=== PATIENT | female | born 1995 | race Caucasian/White ===

== ENCOUNTER 2023-11-30 04:53 | Emergency (ER) | payer BC, SELFPAY ==
[2023-11-30] VITALS (17 sets, daily range): BP systolic 91–115; BP diastolic 56–92; PULSE 107–110; RESP 18–20; O2SAT 85–99; BMI 31.8
[2023-11-30] MEDS: METHYLPREDNISOLONE SOD SUCC PF 125 MG/2 ML VIAL IVP (05:05)
[2023-11-30] MEDS: DIPHENHYDRAMINE HCL 50 MG/ML (1ML) VIAL IV (05:05)
--- NOTE | 2023-11-30 05:08 | ED_ITS ---
HPI - Allergic Reaction General Chief complaint: Allergic Reaction Stated complaint: allergic reaction Time Seen by Provider: 11/30/23 05:05 Source: patient Mode of arrival: walk-in Limitations: no limitations History of Present Illness HPI narrative: 28-year-old female presents for an allergic reaction. She has swelling to her lips and redness to her skin. It started shortly before coming into the emergency department. No new medications and she hasn't used any new products. It has been continuous. Related Data Home Medications Medication Instructions Recorded Confirmed citalopram 20 mg tablet mg 11/30/23 diclofenac sodium 75 mg mg PO 11/30/23 tablet,delayed release levonorgestrel 0.15 mg-ethinyl 11/30/23 estradiol 30 mcg tablets,3 mos pack(91) simvastatin 20 mg tablet mg 11/30/23 tizanidine 4 mg tablet mg 11/30/23 venlafaxine 37.5 mg mg PO 11/30/23 capsule,extended release 24 hr Allergies Allergy/AdvReac Type Severity Reaction Status Date / Time No Known Drug Allergies Allergy Verified 11/30/23 05:01 Review of Systems ROS Narrative A ten point review of systems is negative except as noted above. PFSH PFSH Social History Smoking status: Never smoker Exam Narrative Exam Narrative: Nurses note and vital signs reviewed and patient is not hypoxic. General: The patient appears well and in no apparent distress. Patient is re sting comfortably on cart. Skin: Warm, dry, no pallor noted. There is erythema on most areas of her body. Head: Normocephalic, atraumatic Eye: Normal conjunctiva, no drainage Ears, Nose, Mouth, and Throat: oral mucosa is moist. Nares patent. lips are swollen, tongue is not. She is handling her oral secretions well Cardiovascular: Regular Rate and Rhythm Respiratory: bilateral rhonchi present Back: non-tender GI: soft and nontender Musculoskeletal: The patient has no evidence of calf tenderness, no pitting edema, symmetrical pulses noted bilaterally Neurological: A&O, normal speech Psychiatric: Cooperative Constitutional Vital Signs, click to edit/add: Last Vital Signs Pulse 109 H 11/30/23 04:56 Resp 20 11/30/23 04:56 BP 91/69 11/30/23 04:56 Pulse Ox 85 L 11/30/23 04:56 O2 Del Method Room Air 11/30/23 04:56 Course Vital Signs Vital signs: Vital Signs Pulse Rate 109 H 11/30/23 04:56 Respiratory Rate 20 11/30/23 04:56 Blood Pressure 91/69 11/30/23 04:56 Pulse Oximetry 85 L 11/30/23 04:56 Oxygen Delivery Method Room Air 11/30/23 04:56 Pulse Rate 109 H 11/30/23 04:56 Respiratory Rate 20 11/30/23 04:56 Blood Pressure 91/69 11/30/23 04:56 Pulse Oximetry 85 L 11/30/23 04:56 Oxygen Delivery Method Room Air 11/30/23 04:56 MDM - Allergic Reaction MDM Narrative Medical decision making narrative: the patient's was given IV Pepcid, Solu-Medrol, Benadryl, and aerosol treatment and seems to be improved. Subsequently she became nauseous and was given IV Zofran and the patient is signed out to Dr. Liu. Differential Diagnosis Differential diagnosis: Likely anaphylaxis, allergic reaction, angioedema, adverse reaction to drug and urticaria Discharge Plan Discharge Chief Complaint: Allergic Reaction Clinical Impression: Allergic reaction Patient Disposition: Still a Patient Prescriptions / Home Meds: No Action venlafaxine 37.5 mg capsule,extended release 24hr PO tizanidine 4 mg tablet citalopram 20 mg tablet simvastatin 20 mg tablet diclofenac sodium 75 mg tablet,delayed release (DR/EC) PO levonorgestrel-ethinyl estrad 0.15 mg-30 mcg (91) tablets,dose pack,3 month Referrals: Edgardo Parrish MD [Primary Care Provider] - 1 week
[2023-11-30] MEDS: ALBUTEROL SULFATE 2.5 MG/3 ML VIAL NEB IH (05:16)
[2023-11-30] MEDS: FAMOTIDINE/PF 20 MG/2 ML VIAL IV (05:17)
--- NOTE | 2023-12-25 15:51 | ED.ALLEREA1 ---
HPI - Allergic Reaction General Chief complaint: Allergic Reaction Stated complaint: allergic reaction Time Seen by Provider: 11/30/23 05:05 Source: patient Mode of arrival: walk-in Limitations: no limitations History of Present Illness HPI narrative: This patient was turned over to me by Dr. serrano she was under close observation and was evaluated by myself several times. After initial evaluation. Therapeutic intervention was initiated. She did much better but under observation for several hours here. Related Data Home Medications Medication Instructions Recorded Confirmed citalopram 20 mg tablet mg 11/30/23 diclofenac sodium 75 mg mg PO 11/30/23 tablet,delayed release levonorgestrel 0.15 mg-ethinyl 11/30/23 estradiol 30 mcg tablets,3 mos pack(91) simvastatin 20 mg tablet mg 11/30/23 tizanidine 4 mg tablet mg 11/30/23 venlafaxine 37.5 mg mg PO 11/30/23 capsule,extended release 24 hr Allergies Allergy/AdvReac Type Severity Reaction Status Date / Time No Known Drug Allergies Allergy Verified 11/30/23 05:01 PFSH PFS Social History Smoking status: Never smoker Exam Constitutional Vital Signs, click to edit/add: Last Vital Signs Pulse 107 H 11/30/23 05:25 Resp 18 11/30/23 07:15 BP 113/56 11/30/23 07:15 Pulse Ox 95 11/30/23 07:15 O2 Del Method Room Air 11/30/23 07:15 O2 Flow Rate 5 11/30/23 05:25 Course Vital Signs Vital signs: Vital Signs Pulse Rate 109 H 11/30/23 04:56 Respiratory Rate 20 11/30/23 04:56 Blood Pressure 91/69 11/30/23 04:56 Pulse Oximetry 85 L 11/30/23 04:56 Oxygen Delivery Method Room Air 11/30/23 04:56 Pulse Rate 107 H 11/30/23 05:25 Respiratory Rate 18 11/30/23 07:15 Blood Pressure 113/56 11/30/23 07:15 Pulse Oximetry 95 11/30/23 07:15 Oxygen Delivery Method Room Air 11/30/23 07:15 Oxygen Delivery Flow Rate 5 11/30/23 05:25 MDM - Allergic Reaction MDM Narrative Medical decision making narrative: There is no identifiable allergen that precipitated this event per Dr. messina chart or my discussion. She responded very nicely so we decided to treat her as an outpatient after adequate observation. Discharge Plan Discharge Chief Complaint: Allergic Reaction Clinical Impression: Allergic reaction Patient Disposition: Home, Self-Care Time of Disposition Decision: 07:12 Prescriptions / Home Meds: No Action venlafaxine 37.5 mg capsule,extended release 24hr PO tizanidine 4 mg tablet citalopram 20 mg tablet simvastatin 20 mg tablet diclofenac sodium 75 mg tablet,delayed release (DR/EC) PO levonorgestrel-ethinyl estrad 0.15 mg-30 mcg (91) tablets,dose pack,3 month Instructions: General Allergic Reaction (ED), Allergy Testing (ED) Additional Instructions: prednisone for five days/entero-for 3-5 days/Pepcid for five days Stand Alone Forms: Portal Instructions Referrals: Edgardo Parrish MD [Primary Care Provider] - 1 week Discharge Date/Time: 11/30/23 07:20
== END 2023-11-30 07:20 | disposition home or self-care (01) ==
PROVIDERS: Emergency Provider Emergency Medicine Emergency Medical Services; PCP Family Medicine
DX: T78.40XA Allergy, unspecified, initial encounter (principal); Z79.899 Other long term (current) drug therapy
CPT/HCPCS: 94640; 96374; 96375; 99284; J1200; J2930

== ENCOUNTER 2024-01-05 08:57 | Outpatient (OUT) | payer BC, SELFPAY ==
--- OUTSIDE RECORDS SUMMARY | 2024-01-05 09:10 | XMS_ITS | CCD ---
Author Name Unknown Address [address] [facility] [address] [place] [address] Organization [facility] Care Team Providers Care Head Soft Sugar Operator Name Role Phone Jasmin Parrish Primary Care Provider [phone] Kaushik Richardson Attending Provider [phone] aJsmin Parrish Primary Care Physician Benjamin RAMESH Attending Unavailable DESTIN ., DR BEARD Admitting Unavailable REQUEST, DR POPEYE LISTED Primary Care Unavaila ble DESTIN ., DR BEARD Consulting Unavailable DESTIN ., DR BEARD Attending Unavailable ZIEBER, DR GABRIELLA Velazco Consulting Unavailable DESTIN ., DR BEARD Consulting Unavailable DESTIN ., DR BEARD Attending Unavailable DESTIN ., DR BEARD Admitting Unavailable HOY ., DR CASTELLANOS Primary Care Unavailable HOY ., DR CASTELLANOS Consulting Unavailable HOY ., DR CASTELLANOS Attending Unavailable HOY ., DR CASTELLANOS Admitting Unavailable HOY ., DR CASTELLANOS Primary Care Unavailable REINECK, DR DEVON Reid Attending Unavailabl e REINECK, DR DEVON Reid Admitting Unavailabl e REINECK, DR DEVON Reid Consulting Unavailabl e HOY ., DR CASTELLANOS Primary Care Unavailable NESTOR GONZALEZ Consulting Unavailable HOY ., DR CASTELLANOS Primary Care Unavailable HOY ., DR CASTELLANOS Consulting Unavailable HOY ., DR CASTELLANOS Attending Unavailable HOY ., DR CASTELLANOS Admitting Unavailable HOY ., DR CASTELLANOS Primary Care Unavailable HOY ., DR CASTELLANOS Consulting Unavailable HOY ., DR CASTELLANOS Attending Unavailable HOY ., DR CASTELLANOS Admitting Unavailable ZIEBER, DR GABRIELLA Velazco Consulting Unavailable Jasmin Parirsh Referring Unavailable NILL, Benjamin R Attending Unavailable NILL, Benjamin R Attending Unavailable NILL, Benjamin R Attending Unavailable NILL, Benjamin R Attending Unavailable HoyJasmin Referring Unavailable NILL, Benjamin R Attending Unavailable NILL, Benjamin R Admitting Unavailable NILL, Benjamin R Attending Unavailable DESTIN, CHIRAG Attending Unavailable Unavailable Unavailable Unavailable Medications Current Medications Medication Drug Class(es) Dates Sig (Normalized) Sig (Original) citalopram 20 mg oral tablet (4 sources) Serotonin Reuptake Inhibitor Start: 10-24-2022 take 1 tablet by mouth once daily CeleXA 20 mg Tab 20 mg = 1 tab(s), Oral, Daily, Refills(s) 0 Start Date: 10/24/22 Status: Ordered diclofenac sodium 75 mg delayed release oral tablet (4 sources) Nonsteroidal Anti-inflammatory Drug Start: 10-24-2022 take 1 tablet by mouth twice daily diclofenac sodium 75 mg Oral EC Tab 75 mg = 1 tab(s), Oral, BID, Refills(s) 0 Start Date: 10/24/22 Status: Ordered ethinyl estradiol 0.02 mg / ferrous fumarate 75 mg / norethindrone 1 mg oral tablet (4 sources) Estrogen Start: 10-24-2022 take 1 tablet by mouth once daily 12/12 oral tablet 1 tab(s), Oral, Daily, Refill(s) 0 Start Date: 10/24/22 Status: Ordered famotidine 40 mg oral tablet (1 source) Histamine-2 Receptor Antagonist Start: 08-18-2023 take 1 tablet by mouth once daily at bedtime Pepcid 40 mg Tab 40 mg = 1 tab(s), Oral, Once a day (at bedtime), Refills(s) 0 Start Date: 08/18/23 Status: Ordered simvastatin 20 mg oral tablet (1 source) HMG-CoA Reductase Inhibitor Start: 09-10-2023 take 1 tablet by mouth once daily in the evening simvastatin 20 mg Tab 20 mg = 1 tab(s), Oral, qPM, Refills(s) 0 Start Date: 09/10/23 Status: Ordered sucralfate 1000 mg oral tablet (2 sources) Aluminum Complex Start: 08-27-2023 take 1 tablet by mouth four times daily Carafate 1 gram Tab 1 gm = 1 tab(s), Oral, QID, # 120 tab(s), Refills(s) 3, Pharmacy: [facility]/pharmacy #[id number], 157.4, cm, 09/10/23 12:54:00 EDT, Height/Length Dosing, 76.6, kg, 09/10/23 12:54:00 EDT, Weight Dosing Start Date: 09/10/23 Status: Ordered tiZANidine 4 mg oral tablet (3 sources) Central alpha-2 Adrenergic Agonist Start: 10-24-2022 take 2 tablets by mouth at bedtime tiZANidine 4 mg Tab 8 mg = 2 tab(s), Oral, Bedtime, Refills(s) 0 Start Date: 10/24/22 Status: Ordered 24 hr venlafaxine 37.5 mg extended release oral capsule (4 sources) Serotonin and Norepinephrine Reuptake Inhibitor Start: 10-24-2022 take 1 capsule by mouth once daily venlafaxine 37.5 mg Cap-ER 37.5 mg = 1 cap(s), Oral, Daily, Refills(s) 0 Start Date: 10/24/22 Status: Ordered Ventolin HFA 90 mcg/inh Aerosol-Adpt (4 sources) Start: 10-24-2022 take 2 puff(s) by inhalation four times daily Ventolin HFA 90 mcg/inh Aerosol-Adpt 2 puff(s), Inhalation, QID Shortness of breath or wheezing, Refill(s) 0 Start Date: 10/24/22 Status: Ordered Problems Active Problems Problem Classification Problem Date Documented Da te Episodic/Chronic Abdominal pain (2 sources) Epigastric pain; Translations: [Epigastric pain] Onset: 3 Episodic Asthma (6 sources) Unspecified asthma, uncomplicated; Translations: [Asthma] Onset: 3 Chronic Attention-deficit, conduct, and disruptive behavior disorders (4 sources) Attention deficit hyperactivity disorder 10-24-2022 Chronic Disorders of lipid metabolism (6 sources) Pure hypercholesterolemia, unspecified; Translations: [Pure hyperglyceridemia] Onset: 3 Chronic Esophageal disorders (6 sources) Gastroesophageal reflux disease; Translations: [Gastroesophageal reflux disease without esophagitis] Onset: 3 10-24-2022 Chronic Fluid and electrolyte disorders (1 source) Dehydration; Translations: [DEHYDRATION] Onset: 3 Episodic Genitourinary symptoms and ill-defined conditions (13 sources) Dysuria; Translations: [Increased frequency of urination] Onset: 3 07-19-2019 Episodic Menstrual disorders (4 sources) Irregular menstruation, unspecified; Translations: [IRREGULAR MENSTRUATION UNSPECIFIED] Onset: 2 Chronic Mood disorders (4 sources) Depressive disorder 07-19-2019 Chronic Neoplasms of unspecified nature or uncertain behavior (5 sources) Neoplasm of uncertain behavior of skin; Translations: [Neoplasm of uncertain behavior of skin] Onset: 2 Episodic Noninfectious gastroenteritis (1 source) Noninfective gastroenteritis and colitis, unspecified; Translations: [NONINFECTIVE GE AND COLITIS UNS] Onset: 3 Episodic Other and unspecified benign neoplasm (1 source) Benign neoplasm of skin; Translations: [Other benign neoplasm of skin, unspecified] Onset: 3 Episodic Other and unspecified benign neoplasm (2 sources) Dermal cellular nevus 12-02-2022 Episodic Other gastrointestinal disorders (4 sources) Irritable bowel syndrome 10-24-2022 Chronic Other gastrointestinal disorders (3 sources) Diarrhea, unspecified; Translations: [DIARRHEA UNSPECIFIED] Onset: 3 Episodic Other lower respiratory disease (1 source) Personal history of pneumonia (recurrent); Translations: [PERSONAL HX OF PNEUMONIA RECURRENT] Onset: 3 Episodic Other nutritional; endocrine; and metabolic disorders (4 sources) Body mass index 30+ - obesity 10-28-2022 Chronic Other nutritional; endocrine; and metabolic disorders (1 source) Obesity 09-10-2023 Chronic Other screening for suspected conditions (not mental disorders or infectious disease) (4 sources) Encounter for screening for malignant neoplasm of cervix; Translations: [ENC SCREENING MALIG NEOPLASM CERV] Onset: 3 Episodic Other upper respiratory disease (4 sources) Seasonal allergic rhinitis 10-24-2022 Chronic Residual codes; unclassified (4 sources) Dependent edema 10-24-2022 Episodic Residual codes; unclassified (4 sources) Insomnia 10-24-2022 Episodic Residual codes; unclassified (1 source) Acquired absence of other specified parts of digestive tract; Translations: [ACQ ABSENCE OTH PART DIGESTV TRACT] Onset: 3 Episodic Unclassified (1 source) CONTACT W/AND (SUSP) EXPOS COVID-19; Translations: [CONTACT W/AND (SUSP) EXPOS COVID-19] Onset: 3 Urinary tract infections (4 sources) Chronic cystitis 07-19-2019 Chronic Past or Other Problems Problem Classification Problem Date Documented Da te Episodic/Chronic Spondylosis; intervertebral disc disorders; other back problems (1 source) Dorsalgia, unspecified; Translations: [DORSALGIA UNSPECIFIED] Onset: 10-10-2022 Episodic Results Test Name Value Interpretation Reference Range Facility Ambulatory Visit Summaryon 1 Ambulatory Visit Summary JESS SUAZO :1995 Visit Date:09/10/2023 Ambulatory Visit Instructions Your Diagnosis Epigastric pain Duodenogastric bile reflux Your Care Team Attending Physician - GADIEL CASTILLO, Benjamin Velazco Primary Care Physician - Francois CASTILLO, Jasmin Referring Physician - Jasmin Parrish MD This Is Your Medications List sucralfate (Carafate 1 gram Tab) Contact prescribing physician if questions or concerns albuterol (Ventolin HFA 90 mcg/inh Aerosol-Adpt) citalopram (CeleXA 20 mg Tab) diclofenac (diclofenac sodium 75 mg Oral EC Tab) ethinyl estradiol-norethindrone (12/12 oral tablet) famotidine (Pepcid 40 mg Tab) simvastatin (simvastatin 20 mg Tab) sucralfate (Carafate 1 gram Tab) venlafaxine (venlafaxine 37.5 mg Cap-ER) Procedures Performed section, Cholecystectomy, Colposcopy, EGD - Esophagogastroduodenosco py, Excisional biopsy. Discharge Vitals Heart Rate (Peripheral) 91 Respiratory Rate 16 Blood Pressure 136/79 Height 157.4 cm Height 62 in Weight 76.6 kg Weight 168.52 lb BMI 30.92 Medications What How Much When Why Instructions New sucralfate (Carafate 1 gram Tab) 1 Tablets By Mouth 4 times a day Epigastric pain Duodenogastric bile reflux Refills: 3 Pickup at [facility]/pharmacy #[id number] Unchanged albuterol (Ventolin HFA 90 mcg/ inh Aerosol-Adpt) 2 Puffs Inhalation 4 times a day as needed for Shortness of breath or wheezing Contact prescribing physician if questions or concerns Unchanged citalopram (CeleXA 20 mg Tab) 1 Tablets By Mouth Every day Contact prescribing physician if questions or concerns Unchanged diclofenac (diclofenac sodium 75 mg Oral EC Tab) 1 Tablets By Mouth 2 times a day Contact prescribing physician if questions or concerns Unchanged ethinyl estradiol-norethindrone ( oral tablet) 1 Tablets By Mouth Every day Contact prescribing physician if questions or concerns Unchanged famotidine (Pepcid 40 mg Tab) 1 Tablets By Mouth Once a day (at bedtime) Contact prescribing physician if questions or concerns Unchanged simvastatin (simvastatin 20 mg Tab) 1 Tablets By Mouth Once a day (in the evening) Contact prescribing physician if questions or concerns Unchanged sucralfate (Carafate 1 gram Tab) 1 Tablets By Mouth Four times a day (before meals and at bedtime) Contact prescribing physician if questions or concerns Unchanged venlafaxine (venlafaxine 37.5 mg Cap-ER) 1 Capsules By Mouth Every day Contact prescribing physician if questions or concerns Pharmacy Information [facility]/pharmacy #[id number]: [address] [place], [place] [id number] [phone] Medications and Immunizations Administered Not Given influenza virus vaccine, inactivated, Patient Refuses Allergies No Known Allergies Problems Ongoing - Any problem that you are currently receiving treatment for. ADHD Asthma BMI 30.0-30.9,adult Chronic cystitis Dependent edema Depression Duodenogastric bile reflux Dysuria Epigastric pain GERD (gastroesophageal reflux disease) IBS (irritable bowel syndrome) Insomnia Intradermal nevus Obesity Pure hypercholesterolemia Seasonal allergic rhinitis Straining to void Urinary frequency Historical - Any problem that you are no longer receiving treatment for. Neoplasm of uncertain behavior of skin [facility] Consultation Noteon 08-31-20 23 Consultation Note [id number] F [facility] Physician Referralon 023 Physician Referral [id number] F [facility] PAP ACOG PANEL 2: 20 to 28on 02-26-2023 . . [facility] Comment on above: Performed By: #### P TT, PT #### [facility] [address] [address] [address] Beatrice Arellano Age Gdln ACOG Testing - [facility] Comment on above: Performed By: #### P TT, PT #### [facility] [address] [address] [address] Beatrice Arellano DIAGNOSIS: Comment Normal [facility] Comment on above: Result Comment: NEGA TIVE FOR INTRAEPITHELIAL LESION OR MALIGNANCY. Performed By: #### P TT, PT #### [facility] [address] [address] [address] Beatrice Arellano Methodology: Comment Normal [facility] Comment on above: Result Comment: This liquid based ThinPrep(R) pap test was screened with the use of an image guided system. Performed By: #### P TT, PT #### [facility] [address] [address] [address] Beatrice Arellano Note: Comment Normal [facility] Comment on above: Result Comment: The Pap smear is a screening test designed to aid in the detection of premalignant and malignant conditions of the uterine cervix. It is not a diagnostic procedure and should not be used as the sole means of detecting cervical cancer. Both false-positive and false-negative reports do occur. . Performed By: #### P TT, PT #### [facility] [address] [address] [address] Beatrice Arellano Performed by: Comment Normal [facility] Comment on above: Result Comment: Chrales Whiting, Hand Outside Cutter (ASCP) Performed By: #### P TT, PT #### [facility] [address] [address] [address] Beatrice Arellano Reflex Criteria: Comment Normal [facility] Comment on above: Result Comment: The HPV DNA reflex criteria were not met with this specimen result therefore, no HPV testing was performed. . Performed By: #### P TT, PT #### [facility] [address] [address] [address] Beatrice Arellano Specimen adequacy: Comment Normal [facility] Comment on above: Result Comment: Sati sfactory for evaluation. Endocervical and/or squamous metaplastic cells (endocervical component) are present. Performed By: #### P TT, PT #### [facility] [address] [address] [address] Beatrice Arellano LIPID PROFILEon 02-09-2023 CHOL-HDL RATIO NORM SEE BELOW Normal [facility] Comment on above: Result Comment: 3.3 - 4.4 LOW RISK 4.4 - 7.1 AVERAGE RISK 7.1 - 11.0 MODERATE RISK >11.0 HIGH RISK Performed By: #### P TT, PT #### [facility] [address] [address] [address] Beatrice Arellano Cholesterol [Mass/Vol] 160 mg/dL Normal <=200 [facility] Comment on above: Performed By: #### P TT, PT #### [facility] [address] [address] [address] Beatrice Arellano Cholesterol in HDL [Mass/Vol] 50 mg/dL Normal 40-60 [facility] Comment on above: Performed By: #### P TT, PT #### [facility] [address] [address] [address] Beatrice Arellano Cholesterol in LDL [Mass/Vol] 94.6 mg/dL Normal [facility] Comment on above: Performed By: #### P TT, PT #### [facility] [address] [address] [address] Beatrice Arellano Cholesterol.total/C holesterol in HDL [Mass ratio] 3.2 {ratio} Normal [facility] Comment on above: Performed By: #### P TT, PT #### [facility] [address] [place] [address] Dr. Beatrice Arellano HDL NORMAL > or = 60 mg/dl - LO W CARDIOVASCULAR RISK <40 mg/dl - HIGH CARDIOVASCULAR RISK Normal [facility] Comment on above: Performed By: #### P TT, PT #### [facility] [address] [address] [address] Beatrice Arellano LDL CALC NORMAL SEE BELOW Normal [facility] Comment on above: Result Comment: <100 mg/dl OPTIMAL 100 - 129 mg/dl NEAR OR ABOVE OPTIMAL 130 - 159 mg/dl BORDERLINE HIGH 160 - 189 mg/dl HIGH >190 mg/dl VERY HIGH Performed By: #### P TT, PT #### [facility] [address] [address] [address] Beatrice Arellano Triglyceride [Mass/Vol] 77 mg/dL Normal <=150 [facility] Comment on above: Performed By: #### P TT, PT #### [facility] [address] [address] [address] Beatrice Arellano VLDL CALC 15.4 mg/dL Normal [facility] Comment on above: Performed By: #### P TT, PT #### [facility] [address] [address] [address] Beatrice Arellano LIVER PROFILEon 02-09-2023 Albumin [Mass/Vol] 3.7 g/dL Normal 3.4-5.0 [facility] Comment on above: Performed By: #### P TT, PT #### [facility] [address] [address] [address] Beatrice Arellano Albumin/Globulin [Mass ratio] 1.1 {ratio} Normal [facility] Comment on above: Performed By: #### P TT, PT #### [facility] [address] [place] [address] Dr. Beatrice Arellano ALP [Catalytic activity/Vol] 66 U/L Normal 46-116 [facility] Comment on above: Performed By: #### P TT, PT #### [facility] [address] [place] [address] Dr. Beatrice Arellano ALT [Catalytic activity/Vol] 19 U/L Normal 14-59 [facility] Comment on above: Performed By: #### P TT, PT #### [facility] [address] [place] [address] Dr. Beatrice Arellano AST [Catalytic activity/Vol] 15 U/L Normal 15-37 [facility] Comment on above: Performed By: #### P TT, PT #### [facility] [address] [place] [address] Dr. Beatrice Arellano BILI, CONJUGATED 0.1 mg/dL Normal 0.0-0.2 [facility] Comment on above: Performed By: #### P TT, PT #### [facility] [address] [place] [address] Dr. Beatrice Arellano Bilirubin [Mass/Vol] 0.4 mg/dL Normal 0.2-1.0 [facility] Comment on above: Performed By: #### P TT, PT #### [facility] [address] [address] [address] Beatrice Arellano Globulin (S) [Mass/Vol] 3.4 g/dL Normal [facility] Comment on above: Performed By: #### P TT, PT #### [facility] [address] [address] [address] Beatrice Arellano Protein [Mass/Vol] 7.1 g/dL Normal 6.4-8.2 [facility] Comment on above: Performed By: #### P TT, PT #### [facility] [address] [address] [address] Beatrice Arellano Covid-19 PCR ([facility])on SARS-CoV-2 (COVID-19) RNA AISHA+probe Ql (Unsp spec) Not detected Normal NOT DETECTED [facility] Comment on above: Result Comment: When diagnostic testing is negative, the possibility of a false negative should be considered in the context of a patient's recent exposures and the presence of clinical signs and symptoms consistent with SARS-CoV-2. This test is not yet approved or cleared by the [place] FDA. When there are no FDA-approved or cleared tests available, and other criteria are met, FDA can make tests available under an emergency access mechanism called an Emergency Use Authorization (EUA). The EUA for this test is supported by the [place] of Health and Human Service's declaration that circumstances exist to justify the emergency use of in vitro diagnostics for the detection and/or diagnosis of the virus that causes COVID-19. This EUA will remain in effect for the duration of the COVID-19 declaration justifying emergency of IVDs, unless it is terminated or revoked by the FDA (after which the test may no longer be used). Performed By: #### P TT, PT #### [facility] [address] [place] [address] Dr. Beatrice Arellano INFLUENZA A AND B AGon 12-29 INFLUANEGH SEE BELOW Normal [facility] Comment on above: Result Comment: Nega tive for Flu A protein angiten. Infection due to Flu A cannot be ruled out. Flu A angiten in the sample may be below the detection limit of the test. Performed By: #### I NFLUAB #### [facility] [address] [place] [address] Dr. Beatrice Arellano [facility] SEE BELOW Normal [facility] Comment on above: Result Comment: Nega tive for Flu B protein antigen. Infection due to Flu B cannot be ruled out. Flu B antigen in the sample may be below the detection limit of the test. Performed By: #### I NFLUAB #### [facility] [address] [place] [address] Dr. Beatrice Arellano INFLUENZA A AG Negative Normal NEGATIVE SEE COMMENT [facility] Comment on above: Performed By: #### I NFLUAB #### [facility] [address] [place] [address] Dr. Beatrice Arellano INFLUENZA B AG Negative Normal NEGATIVE SEE COMMENT [facility] Comment on above: Performed By: #### I NFLUAB #### [facility] [address] [place] [address] Dr. Beatrice Arellano ER URINE PROFILEon 3 Bilirubin Ql (U) SMALL Abnormal NEGATIVE [facility] Comment on above: Performed By: #### T SH, PREGQNT #### [facility] [address] [place] [address] Dr. Beatrice Arellano Clarity (U) CLEAR Normal CLEAR [facility] Comment on above: Performed By: #### T SH, PREGQNT #### [facility] [address] [place] [address] Dr. Beatrice Arellano Color (U) YELLOW Normal YELLOW [facility] Comment on above: Performed By: #### T SH, PREGQNT #### [facility] [address] [place] [address] Dr. Beatrice Arellano ERUMARTID A micrscopic examina tion will be performed if indicated. Normal [facility] Comment on above: Performed By: #### T SH, PREGQNT #### [facility] [address] [place] [address] Dr. Beatrice Arellano Glucose Ql (U) Negative Normal NEGATIVE [facility] Comment on above: Performed By: #### T SH, PREGQNT #### [facility] [address] [address] [address] Beatrice Arellano Hemoglobin Ql (U) Negative Normal NEGATIVE [facility] Comment on above: Performed By: #### T SH, PREGQNT #### [facility] [address] [place] [address] Dr. Beatrice Arellano Ketones Ql (U) 15 mg/dl Abnormal NEGATIVE [facility] Comment on above: Performed By: #### T SH, PREGQNT #### [facility] [address] [place] [address] Dr. Beatrice Arellano LEUKOCYTES Negative Normal NEGATIVE [facility] Comment on above: Performed By: #### T SH, PREGQNT #### [facility] [address] [place] [address] Dr. Beatrice Arellano Nitrite Ql (U) Negative Normal NEGATIVE [facility] Comment on above: Performed By: #### T SH, PREGQNT #### [facility] [address] [place] [address] Dr. Beatrice Arellano pH (U) 5.5 [pH] Normal 5-9 [facility] Comment on above: Performed By: #### T SH, PREGQNT #### [facility] [address] [place] [address] Dr. Beatrice Arellano SPEC GRAVITY 1.025 Normal 1.005-<=1.02 5 [facility] Comment on above: Performed By: #### T SH, PREGQNT #### [facility] [address] [place] [address] Dr. Beatrice Arellano UA PROTEIN Negative Normal NEGATIVE/ TRACE [facility] Comment on above: Performed By: #### T SH, PREGQNT #### [facility] [address] [place] [address] Dr. Beatrice Arellano UR MICRO IND NOT INDICATED Normal [facility] Comment on above: Performed By: #### T SH, PREGQNT #### [facility] [address] [place] [address] Dr. Beatrice Arellano Urobilinogen Qn (U) 0.2 {Elana'U}/dL Normal 0.2 - 1. 0 [facility] Comment on above: Performed By: #### T SH, PREGQNT #### [facility] [address] [place] [address] Dr. Beatrice Arellano URon 12-24-2022 , QUAL Negative Normal NEGATIVE [facility] Comment on above: Performed By: #### T SH, PREGQNT #### [facility] [address] [place] [address] Dr. Beatrice Arellano PROF CHEM 8 (BAS METB)on Anion gap [Moles/Vol] 14.2 mmol/L Normal [facility] Comment on above: Performed By: #### P TT, PT #### [facility] [address] [place] [address] Dr. Beatrice Arellano Calcium [Mass/Vol] 8.8 mg/dL Normal 8.5-10.1 [facility] Comment on above: Performed By: #### P TT, PT #### [facility] [address] [place] [address] Dr. Beatrice Arellano Chloride [Moles/Vol] 102 mmol/L Normal 98-107 [facility] Comment on above: Performed By: #### P TT, PT #### [facility] [address] [place] [address] Dr. Beatrice Arellano CO2 [Moles/Vol] 24.6 mmol/L Normal 21.0-32.0 [facility] Comment on above: Performed By: #### P TT, PT #### [facility] [address] [place] [address] Dr. Beatrice Arellano Creatinine [Mass/Vol] 0.67 mg/dL Normal 0.55-1.02 [facility] Comment on above: Performed By: #### P TT, PT #### [facility] [address] [place] [address] Dr. Beatrice Arellano EGFR-AF EGYPTIAN >60 Normal >=60 [facility] Comment on above: Performed By: #### P TT, PT #### [facility] [address] [address] [address] Beatrice Arellano EGFR-NON AF EGYPTIAN >60 Normal >=60 [facility] Comment on above: Performed By: #### P TT, PT #### [facility] [address] [address] [address] Beatrice Arellano Glucose [Mass/Vol] 106 mg/dL Normal 74-106 [facility] Comment on above: Performed By: #### P TT, PT #### [facility] [address] [address] [address] Beatrice Arellano Potassium [Moles/Vol] 3.8 mmol/L Normal 3.5-5.1 [facility] Comment on above: Performed By: #### P TT, PT #### [facility] [address] [address] [address] Beatrice Arellano Sodium [Moles/Vol] 137 mmol/L Normal 136-145 [facility] Comment on above: Performed By: #### P TT, PT #### [facility] [address] [address] [address] Beatrice Arellano Urea nitrogen [Mass/Vol] 14.0 mg/dL Normal 7.0-18.0 [facility] Comment on above: Performed By: #### P TT, PT #### [facility] [address] [address] [address] Beatrice Arellano Urea nitrogen/Creatinine [Mass ratio] 20.9 mg/mg Normal [facility] Comment on above: Performed By: #### P TT, PT #### [facility] [address] [address] [address] Beatrice Arellano General Surgery Office/Clini c Noteon 12-02-2022 General Surgery Office/Clinic Note Chief Complaint follow up excisional biopsy HPI Staff 12 day post operative follow up post in-office excisional biopsy scalp lesions. Denies discomfort, bleeding or drainage. Sutures intact. History of Present Illness 12 days s/p excisional biopsy scalp lesions, doing well, some itching; pathology consistent with papillary intradermal nevi, with congenital features. Review of Systems ROS - Provider Constitutional: no fever, no sweats, no weight loss. Eyes: no glasses, no blurred vision, no visual loss. ENMT: no dentures, no hoarseness, no swallowing difficulties, no hearing loss, no ear infection(s), no nose bleeds. Cardiovascular: normal blood pressure, no chest pain, regular heartbeat, no heart murmur. Respiratory: no shortness of breath, no cough, no asthma, no wheezing. Gastrointestinal: no nausea, no vomiting, no diarrhea, no constipation, no blood in stool, no change in bowel habits, no abdominal pain, no hepatitis. Genitourinary: no kidney stones, no urine infection, no dysuria. Musculoskeletal: no pain, no weakness. Skin: no changing moles, no rash, no skin lumps. Neurologic: no seizures, no epilepsy, no headache. Psychiatric: no emotional or psychiatric problem. Heme/Lymph: no bleeding problems, no anemia, no blood clots, no transfusions. Allergy/Immunologic: no swollen lymph nodes/glands, no IV drug abuse. Other: Additional ROS info: Except as noted in the above Review of Systems and in the History of Present Illness, all other systems have been reviewed and are negative or noncontributory. Physical Exam skin: incisions healing well, no drainage or hematoma Assessment/Plan 1. Intradermal nevus (D23.9: Other benign neoplasm of skin, unspecified) sutures removed, doing well, call with problems/questions. Follow-up No qualifying data available Problem List/Past Medical History Ongoing ADHD BMI 33.0-33.9,adult Chronic cystitis Dependent edema Depression Dysuria GERD (gastroesophageal reflux disease) IBS (irritable bowel syndrome) Insomnia Intradermal nevus Neoplasm of uncertain behavior of skin Seasonal allergic rhinitis Straining to void Urinary frequency Historical No qualifying data Procedure/Surgical History section, Cholecystectomy, Colposcopy, EGD - Esophagogastroduodenosco py, Excisional biopsy. Medications CeleXA 20 mg Tab diclofenac sodium 75 mg Oral EC Tab, 75 mg= 1 tab(s), Oral, BID 12/12 oral tablet, 1 tab(s), Oral, Daily tiZANidine 4 mg Tab, 8 mg= 2 tab(s), Oral, Bedtime venlafaxine 37.5 mg Cap-ER Ventolin HFA 90 mcg/inh Aerosol-Adpt, 2 puff(s), Inhalation, QID, PRN Allergies No Known Allergies Social History Alcohol - Denies Alcohol Use, 07/19/2019 Substance Abuse - Denies Substance Abuse, 10/28/2022 Tobacco Former smoker, quit more than 30 days ago Tobacco Use:. Former smokeless tobacco user, quit more than 30 days ago Smokeless Tobacco Use:. Cigarettes, Vaping, 0.5 per day. Started age 18.0 Years. Stopped age 24 Years., 10/28/2022 Family History Family history is negative Immunizations Vaccine Date Status Comments influenza virus vaccine, inactivated - Not Given Patient Refuses Normal [facility] Comment on above: Result Comment: Elec tronically Signed By: GADIEL CASTILLO, Benjamin Escobedo\Date and Time Signed: 12/02/22 10:23 EST Coding Summary.on 11-26-2022 Coding Summary. [id number] Gh0b Ww+PGhlYWQ+XG0QRHViX75pp BSkiV1TW1nBWA0JHWCWNCPGL U2SSK1bfXF4LYzoD7KhsnJj YofyiQNlSM59ZFr0DRV1vIjw SMgyuI4fqVRiN5o1IaWyTP41 mD35PMmeMZRfZbU0ZjQxkjqo bWFy F6woPnMqcYDgUjc+PHRhYmxl IHdpZHRoPScxMDAlJyBzdHls XG6mUp8wNPEmNQUxhMyqsEPr OiBj g4ynKWDeFCroTK6lzIjvD4Az nPC4AFFcu6k4Ko48hUL+PHRk SOY8eNbcQNnaz401IjZjt7ei IDM3 lKItOTxjLNJ9M14zx7C9WIEp DGKmEQP2pJP9yP5zrGgleiso X0JqtMWzLzI9GFB2iVFqwS3t bGln vujbdV8uFbp+E32KXP4FGZRC FZ3IYkb3W9FmDhuzsEE+PC90 IGKjGI61nCOkuMDwq4kmjWh8 JzEw LHCiGXM4wVptZYaju0FvPWCz H98ayFSpb8O5VIMhuEgklTUl EbQniOD1wU9mKTrglzrhb0lp dzsn Dbrmz7rzln59bH60H94vOYbc ODKjBVI4IICgZGIfyWyxwq8h iR5pBc0+NSpwb8sdd5etzAy5 IjIw SYAcfvSccNqbBPG7c4KiJj09 W6PmcFhhb8HsSgo9ra34xXDs q4S1tFW6XFrmEHNqvW1fXZtj ZnQ6 NKKbPxKehW52qZCrHBwmTn2w yNaikWgnRF2gBLZvxgtrCCTt qV7zVICwzYFzzMnuNX2pVWMq bjtm w318NjVuHEV8QVDokGDmG2Wo nZ2dHkZpQYBcTPTdN8AzzAAo BAjcB756BUnxHfD4LFBytiLi Y2Fs EYUubZcqTjT0r5A1Ka1Qj4Kn dtlxXWZ7JSouWLXiMnZ6MkAa VaU7V4JkDzb7YNSwxSkfVO5c J3Bh FGJvsbheqioxmLW9LFYySCOs rD85aAJwOPqjWs5du9L2g683 CSByRTNkuG39Np7rbCvfJMBu dCBU qH7dmvuqm9xtqclaBwOnBQYh CYn4CZy9DOLssLlsUcXfEDH7 GmV8DVR2gYSwwK6haKpurczi dG9w Oyc+R95thX2wXBX2ISH9feba UEOsikOzPB88FF64F7MqPoyt dGFibGU+KNXdisDizWocPC6x YmFj a0agc0YiFFsaG6AvPLJxSJfn Utr5HPLcWSP5oSI2lJ4bXRUb FJnzw7H5uHR9A1FlquOpan4z b2xs NVAiVZozO92ccXLkk2J0ZUVw bDF3MFUreKowNlAdjU72Gon+ HHQbvKwoe8RsKnshh8pdh2qc dGg9 SmVsHGGqhkSpmXosKPF7k7Nq Vu94C47kXMnoKJEuAWXzUSJb WMDzvSfnrd7soP3eDg4+PGNv bCB3 dDO0eI9nJHBxHeO9KCmfB461 GhOebFVuQnjqw5rra0uxgEd1 MeThVCVpzkPbpXhsIYL8r3Mz Lz48 O83kKHeyKVDxXWJrMXPjDEFz nIjnfn4eaS9lOy9+TK7ca7vr yy04nF63fZC+UOSwEIK4hWhh PSdw MATvfU5wSQgkHsH1IGHvSgIl yO55sRYqYAbhBm9egIqviEfe ZP5bVYMvvsvjw531TfZei6lj IDEw eTEdSJevQCT6S09hf9T8JFGt CEAtQRF9rDM8hL3niFenxsqy bGVmdDsgdmVydGljYWwtYWxp Z246 IHRvcDsnPlBhdGllbnQgTmFt LSm4W0MgLnq4DGKifXsnVM1t tSCiGEnuZo4qwLdwoQcwJZ3x NTBp iadlb498LoZwu9raEWRsfBNw KNjmMHL0H88va6F6TBCtXUMq YZY7kRY8wB5bzTzxjszbzFEi dDsg hkBceXamRMjeNQaaN153UWHi iAloUpAcwoTkELJqjCJ3GL58 UV63tJHvp6D7oOS0R5XwNIWk bmct pmeksND5ZCJuCUPtwN34Bz4u nQcdGr0vNVCrUVF3PPDwdEZt K8UwjY7eJkZcYVEkCCFxL8Ux eHQt SYvqS007PHfdCbD3BPSvyxFj D6CzSOOquNjmHuW6x6Q0Wo7C A6F3LF09LS53gERsr6F4iWX5 J3Bh FOEtcpzwtdwzoHQ3QOSaACTq oU59Tr3ykUppLr1kDKSgHGD7 CNJmqNVgG0ZxdF0tNlYcUXUy MDAw L8QyeTHlFHunC697RBjsDiX4 FEXtahQdF7BvVYVyvWqnNnW6 o4T2Se5ZRYr1PR92YW32mCFt c3R5 kAD6W2XdVMXulcowsiauzKF7 WYBrYHRyeR84Bj4okOwfQq1z DXOqPPL2RCJtwWKpX3FsgW0u OiAj NLOaZODzJ4NgxRLzDBxsD019 AHoyVyL2LBQmajUrA4UxVIIq rDxlUtG7j3H6Jj1DLGZxEX23 IFR5 mDU5XX97VS99C2PfMsealNNe bGU+PHRhYmxlIHdpZHRoPScx FGMcBrZsiPgcKI5uSu6nJVFm LWNv xDbbdPPkYdTky5tbYQRjWEui QV4mnNeoA1SfdRH5YCMii5j3 Fj24H95cJ3FtcKZ+PGNvbCB3 aWR0 bJ0qXxCcOkF8TVvpV658ZxHy eHAePbwtw3xfs9dfjXl5SkK9 GDDhdaIrmVccZRU6h5CjIy07 Y29s IHdpZHRoPSIxNSUiIHZhbGln dh2pwQ7jHe1+YNWwoGN5zYB4 fL4jEeMvBjM7DSpkW110PhHy cCIv Pkqpc3jmu8mmfWm2ScSlWFGj mdKliJsfFOZ6w5ZxPr29X2Dg cKtlx6UsVlu4us02lNJfj9Z6 bGU9 V0UnCLLvtoyvlVGqbPrrTR9a BOOqnungISBssF3bNKHgV0n0 UwGjNwX6GObvK9LsfeD0GJId cHQg YYhdPAO7Q89qc7D9ROYqEURq SKL1fSZ3qE6tlEhleafyyJYb zTmainNtsTntBJmwIMmgI589 IHRv cDwoJVRfzC3yBDJcyURjpIqv UY5rIBEklmqcTluCXAPKIEAY YKYFIsTYFX66DF18hKSiu0Y1 bGU9 T1FmLCPwbzowbgcvpJQ3GOAk FNWhyF17jETbVZkzOe0mt9Z2 k912NKLyFACszH49Yy9biDvt MTBw eAJXdK3kyqeyj6lblycrMwWj UXZgSSj1RJr1ZEFyoSumJrDo ZVR5CsE8OMI8rDJicI7bkFwz bjog iZ6lMnp+HIYhDKyxLVo3WDul dGQ+SHJvDEA4sPdeNOnvSZYz eH3vWLHtA7s4EaZwWpQ3NLfr O3Bh ECZxigaaBl97fA8uEmQoGeL5 HHngQ2NsktP6UCJubZKnWLzt QSO3F78wf7J7EVWiATHmBIS4 dGV4 hD0ldVphguwmnVZkeCtddzGs wSvsBIllAAnzT694DVKquAue LwV7TUzxQYXcMD09VP65lRSn c3R5 mFN5Q6LfRIPqlskpdyxggJD8 VUMdVBIewG82hNTlSRaoMi2v r0F8g714HOYjUAFioZ97Tt4f dDog EZLcsSUHtC3swevhh7hjpnvi ZzBeDNGnDQn2SFx8KEKjtVei MkJvOLD7PtM8DFJ5pXBhxD6n bGln zwrljT6tSmh+LvZnXXxnHF58 KO07rVGge7K0sTP3N8AzLGRg pdcbocfkxCE7NWHaBTZrbU37 cGFk BEqlFe3cu8C4m210KQXqOGCx qS72Qu8ceGwwKZQlrWOAmH7t zexsq3ajcpmkQtXsPMZkLTd6 ZXh0 RSBmvJppOsEcMOA1SyR9TBU9 dUCqjK1exOkrtapzdA3xSqr+ MUWsKFYzu3Txy9RlNK39BT11 L3Ry PjwvdGFibGU+PHRhYmxlIHdp RJQbCTyrCXAoZeMrrEmlQJ5s No7rGVXmCOKoqWtdoMYgQaYe b2xs MEYxWSqzDK6kyNkjD1BnyPP5 CEAoq1p4Wc68T77eJ8IcpMD+ INHuaWR2qCE1xY0xRuMyCgS2 YWxp O847SvEbvMAbZyotg9tln2qk oCi9AnIuEMCckxYqnIquTZM7 h1ImSs41S09wGFcnPEVnXARb MCUi TJZzrBavxf3naZ4gDd8+PGNv fTN7jYN2oC9iItGlOtW3VVoa N076OxYpzPQbJvtlB61jU6Lb dXA+ WSZbUlg6CAJmkSftHF6crIEn JHnvVs8wYGA9YuHnMbQtFFub N2AfZBVgmamsyijjaXB1QTZd MDUw cI48Sr3nvMmnHc8qYQChYQJ1 RURooHHxT2ZrgH6hNvHeRWUd LZOjD0YreCKmBYpsW972FGwd ZnQ7 FYKyvqFtF8JbMQGtxXzePyF9 v0B9Wy8ChDlgkPQwWJ6qJzNf NAn2D8MnDvb9HAXmmKgbND2y cGFk HDwyWn6rbHznbQfwDG1sICIm vbtrl233YpEzd9qqNRPmvAOe YGioHXL3J67co0I0CFDlETPo MDA7 uXZ7gA1qiMclfbkzlHIhgAus ymWqiOauBKdbSUeuI952JTJm wTyxMpWHJgw7T4VvCes9BSOm dHls SX6hwRZoSOksNt0syIvqcShy DY0yPAScliaam124KzCts2hs EBTikSIiUVndWGA2U14vz1D4 ICMw GYJuJUE4hFR9yJ0rqXuexqxb bGVmdDsgdmVydGljYWwtYWxp N741RHTarGudLv9IDom6R6Bs Pjx0 OYRamEhcYN6vsLQrJUkpIw7y pIvqeBjsJB5sAFQjxcmxn158 UeIom2xhQNGfeEIiNNbdPVZ4 Y29s u9O1BTGgBBGgVDX6hZS9cW8n bGlnbjogbGVmdDsgdmVydGlj AYztYJtiZ982POSueYnpFdSz eWVy OjwvdGQ+LL39cb83K3EiUjij Qnh6ESMxTWN2aKE0jX1sRQJm XTair1V1jZF1I8PfoaMbkb3t b2xs YXBz (more content not included)... Normal [facility] General Surgery Office/Clini c Noteon 11-20-2022 General Surgery Office/Clinic Note Chief Complaint in-office excisional biopsies HPI Staff Presents for in-office excisional biopsies left parietal and right occipital scalps. History of Present Illness patient here for excisional biopsy of painful, enlarging scalp lesions; no change from recent evaluation. Review of Systems ROS - Provider Constitutional: no fever, no sweats, no weight loss. Eyes: no glasses, no blurred vision, no visual loss. ENMT: no dentures, no hoarseness, no swallowing difficulties, no hearing loss, no ear infection(s), no nose bleeds. Cardiovascular: normal blood pressure, no chest pain, regular heartbeat, no heart murmur. Respiratory: no shortness of breath, no cough, no asthma, no wheezing. Gastrointestinal: no nausea, no vomiting, no diarrhea, no constipation, no blood in stool, no change in bowel habits, no abdominal pain, no hepatitis. Genitourinary: no kidney stones, no urine infection, no dysuria. Musculoskeletal: no pain, no weakness. Skin: no changing moles, no rash, yes skin lumps. Neurologic: no seizures, no epilepsy, no headache. Psychiatric: no emotional or psychiatric problem. Heme/Lymph: no bleeding problems, no anemia, no blood clots, no transfusions. Allergy/Immunologic: no swollen lymph nodes/glands, no IV drug abuse. Other: Additional ROS info: Except as noted in the above Review of Systems and in the History of Present Illness, all other systems have been reviewed and are negative or noncontributory. Physical Exam skin: 7 mm raised left parietal lesion, 4 mm raised, right occipital lesion. Procedure patient brought to the procedure room, placed in supine position, area prepped and draped in sterile fashion; anesthetized with 1 % lidocaine; left parietal lesion excised in elliptical fashion down to subcutaneous fat; total length 8 mm, closed with interrupted 4-0 nylon sutures; right occipital lesion excised and closed in an identical fashion, total length 5 mm; tolerated well; ebl < 3 ml. Assessment/Plan 1. Neoplasm of uncertain behavior of skin (D48.5: Neoplasm of uncertain behavior of skin) lesions excised under local anesthesia, tolerated well, ebl < 3ml; follow up in 7-10 days for suture removal; ibuprofen for pain; call with problems/questions. Follow-up No qualifying data available Problem List/Past Medical History Ongoing ADHD BMI 33.0-33.9,adult Chronic cystitis Dependent edema Depression Dysuria GERD (gastroesophageal reflux disease) IBS (irritable bowel syndrome) Insomnia Neoplasm of uncertain behavior of skin Seasonal allergic rhinitis Straining to void Urinary frequency Historical No qualifying data Procedure/Surgical History section, Cholecystectomy, Colposcopy, EGD - Esophagogastroduodenosco py. Medications CeleXA 20 mg Tab diclofenac sodium 75 mg Oral EC Tab, 75 mg= 1 tab(s), Oral, BID 12/12 oral tablet, 1 tab(s), Oral, Daily tiZANidine 4 mg Tab, 8 mg= 2 tab(s), Oral, Bedtime venlafaxine 37.5 mg Cap-ER Ventolin HFA 90 mcg/inh Aerosol-Adpt, 2 puff(s), Inhalation, QID, PRN Allergies No Known Allergies Social History Alcohol - Denies Alcohol Use, 07/19/2019 Substance Abuse - Denies Substance Abuse, 10/28/2022 Tobacco Former smoker, quit more than 30 days ago Tobacco Use:. Former smokeless tobacco user, quit more than 30 days ago Smokeless Tobacco Use:. Cigarettes, Vaping, 0.5 per day. Started age 18.0 Years. Stopped age 24 Years., 10/28/2022 Family History Family history is negative Immunizations Vaccine Date Status Comments influenza virus vaccine, inactivated - Not Given Patient Refuses Normal [facility] Comment on above: Result Comment: Elec tronically Signed By: GADIEL CASTILLO, Benjamin Escobedo\Date and Time Signed: 11/20/22 14:57 EST Physician Referralon 022 Physician Referral [id number]: [address] [facility] INSULINon 10-08-2022 Insulin 18.6 uIU/mL Normal 2.6-24.9 [facility] Comment on above: Performed By: #### P TT, PT #### [facility] [address] [address] [address] Beatrice Arellano LIPID PROFILE SEND OUTon Cholesterol [Mass/Vol] 445 mg/dL Critically high 100-199 [facility] Comment on above: Performed By: #### C MPLC, LIPIDLC, THYPRLC #### [facility] [address] [address] [address] Beatrice Arellano Cholesterol in HDL [Mass/Vol] 18 mg/dL Critically low >39 [facility] Comment on above: Performed By: #### C MPLC, LIPIDLC, THYPRLC #### [facility] [address] [address] [address] Beatrice Arellano Comment: Normal [facility] Comment on above: Performed By: #### C MPLC, LIPIDLC, THYPRLC #### [facility] [address] [address] [address] Beatrice Arellano LDL Chol. Calc. ([facility]) Comment Abnormal 0-99 [facility] Comment on above: Result Comment: Trig lyceride result indicated is too high for an accurate LDL cholesterol estimation. Performed By: #### C MPLC, LIPIDLC, THYPRLC #### [facility] [address] [address] [address] Beatrice Arellano Triglyceride [Mass/Vol] 3146 mg/dL Invalid Interpretation Code 0-149 [facility] Comment on above: Result Comment: Resu lts confirmed on dilution. Performed By: #### C MPLC, LIPIDLC, THYPRLC #### [facility] [address] [address] [address] Beatrice Arellano VLDL Cholesterol, Calc Comment Abnormal 5-40 [facility] Comment on above: Result Comment: The calculation for the VLDL cholesterol is not valid when triglyceride level is >800 mg/dL. Performed By: #### C MPLC, LIPIDLC, THYPRLC #### [facility] [address] [address] [address] Beatrice Arellano PROF 14(COMP METB) SEND OUTo n 10-08-2022 Albumin [Mass/Vol] 3.9 g/dL Normal 3.9-5.0 [facility] Comment on above: Result Comment: Spec imen received lipemic. Value may be decreased by lipemia. Clinical correlation indicated. Performed By: #### C MPLC, LIPIDLC, THYPRLC #### [facility] [address] [address] [address] Beatrice Arellano Albumin/Globulin [Mass ratio] 1.6 {ratio} Normal 1.2-2.2 [facility] Comment on above: Performed By: #### C MPLC, LIPIDLC, THYPRLC #### [facility] [address] [address] [address] Beatrice Arellano ALP [Catalytic activity/Vol] 68 U/L Normal 44-121 [facility] Comment on above: Performed By: #### C MPLC, LIPIDLC, THYPRLC #### [facility] [address] [address] [address] Beatrice Arellano ALT [Catalytic activity/Vol] 29 U/L Normal 0-32 [facility] Comment on above: Performed By: #### C MPLC, LIPIDLC, THYPRLC #### [facility] [address] [address] [address] Beatrice Arellano AST [Catalytic activity/Vol] 34 U/L Normal 0-40 [facility] Comment on above: Performed By: #### C MPLC, LIPIDLC, THYPRLC #### [facility] [address] [address] [address] Beatrice Arellano Bilirubin [Mass/Vol] mg/dL Normal 0.0-1.2 [facility] Comment on above: Performed By: #### C MPLC, LIPIDLC, THYPRLC #### [facility] [address] [address] [address] Beatrice Arellano Calcium [Mass/Vol] 8.5 mg/dL Critically low 8.7-10.2 [facility] Comment on above: Performed By: #### C MPLC, LIPIDLC, THYPRLC #### [facility] [address] [address] [address] Beatrice Arellano Chloride [Moles/Vol] 99 mmol/L Normal 96-106 [facility] Comment on above: Performed By: #### C MPLC, LIPIDLC, THYPRLC #### [facility] [address] [place] [address] Dr. Beatrice Arellano CO2 [Moles/Vol] 20 mmol/L Normal 20-29 [facility] Comment on above: Performed By: #### C MPLC, LIPIDLC, THYPRLC #### [facility] [address] [place] [address] Dr. Beatrice Arellano Creatinine [Mass/Vol] 0.59 mg/dL Normal 0.57-1.00 [facility] Comment on above: Performed By: #### C MPLC, LIPIDLC, THYPRLC #### [facility] [address] [place] [address] Dr. Beatrice Arellano GFR/1.73 sq M.predicted among non-blacks MDRD (S/P/Bld) [Vol rate/Area] 126 mL/min/{1.73_m2} Normal >[address] [facility] Comment on above: Performed By: #### C MPLC, LIPIDLC, THYPRLC #### [facility] [address] [place] [address] Dr. Beatrice Arellano Globulin (S) [Mass/Vol] 2.5 g/dL Normal 1.5-4.5 [facility] Comment on above: Performed By: #### C MPLC, LIPIDLC, THYPRLC #### [facility] [address] [address] [address] Beatrice Arellano Glucose [Mass/Vol] 85 mg/dL Normal 70-99 [facility] Comment on above: Performed By: #### C MPLC, LIPIDLC, THYPRLC #### [facility] [address] [address] [address] Beatrice Arellano Potassium [Moles/Vol] 3.9 mmol/L Normal 3.5-5.2 [facility] Comment on above: Performed By: #### C MPLC, LIPIDLC, THYPRLC #### [facility] [address] [place] [address] Dr. Beatrice Arellano Protein [Mass/Vol] 6.4 g/dL Normal 6.0-8.5 [facility] Comment on above: Performed By: #### C MPLC, LIPIDLC, THYPRLC #### [facility] [address] [address] [address] Beatrice Arellano Sodium [Moles/Vol] 135 mmol/L Normal 134-144 [facility] Comment on above: Performed By: #### C MPLC, LIPIDLC, THYPRLC #### [facility] [address] [place] [address] Dr. Beatrice Arellano Urea nitrogen [Mass/Vol] 8 mg/dL Normal 6-20 [facility] Comment on above: Performed By: #### C MPLC, LIPIDLC, THYPRLC #### [facility] [address] [place] [address] Dr. Beatrice Arellano Urea nitrogen/Creatinine [Mass ratio] 14 mg/mg Normal 9-23 [facility] Comment on above: Performed By: #### C MPLC, LIPIDLC, THYPRLC #### [facility] [address] [place] [address] Dr. Beatrice Arellano THYROID PROFILE WITH TSHon 1 12-08-2021 Free Thyroxine Index 1.3 Normal 1.2-4.9 [facility] Comment on above: Performed By: #### C MPLC, LIPIDLC, THYPRLC #### [facility] [address] [place] [address] Dr. Beatrice Arellano T3 Uptake 21 % Critically low 24-39 [facility] Comment on above: Performed By: #### C MPLC, LIPIDLC, THYPRLC #### [facility] [address] [place] [address] Dr. Beatrice Arellano T4 [Mass/Vol] 6.2 ug/dL Normal 4.5-12.0 [facility] Comment on above: Performed By: #### C MPLC, LIPIDLC, THYPRLC #### [facility] [address] [place] [address] Dr. Beatrice Arellano TSH 1.580 uIU/mL Normal 0.450-4.[address] [facility] Comment on above: Performed By: #### C MPLC, LIPIDLC, THYPRLC #### [facility] [address] [place] [address] Dr. Beatrice Arellano CBC AUTO DIFFon 10-07-2022 BASO # 0.1 103/ul Normal 0.0-0.1 [facility] Comment on above: Performed By: #### C BC #### [facility] [address] [place] [address] Dr. Beatrice Arellano Basophils/100 WBC (Bld) 1.2 % Normal 0.2-2.0 [facility] Comment on above: Performed By: #### C BC #### [facility] [address] [place] [address] Dr. Beatrice Arellano EO # 0.5 103/ul Normal 0.0-0.7 [facility] Comment on above: Performed By: #### C BC #### [facility] [address] [place] [address] Dr. Beatrice Arellano Eosinophils/100 WBC (Bld) 11.5 % Critically high 0.9-7.0 [facility] Comment on above: Performed By: #### C BC #### [facility] [address] [place] [address] Dr. Beatrice Arellano Erythrocyte distribution width (RBC) [Ratio] 12.1 % Normal 11.0-15.0 [facility] Comment on above: Performed By: #### C BC #### [facility] [address] [place] [address] Dr. Beatrice Arellano Hematocrit (Bld) [Volume fraction] 37.0 % Normal 36.0-48.0 [facility] Comment on above: Performed By: #### C BC #### [facility] [address] [place] [address] Dr. Beatrice Arellano Hemoglobin (Bld) [Mass/Vol] 14.2 g/dL Normal 12.0-16.0 [facility] Comment on above: Performed By: #### C BC #### [facility] [address] [place] [address] Dr. Beatrice Arellano IG # 0.04 10e3/ul Critically high 0.00-0.03 [facility] Comment on above: Performed By: #### C BC #### [facility] [address] [place] [address] Dr. Beatrice Arellano IG % 0.9 % Critically high 0.0-0.5 [facility] Comment on above: Performed By: #### C BC #### [facility] [address] [place] [address] Dr. Beatrice Arellano LYMPH # 1.6 103/ul Normal 1.2-3.8 [facility] Comment on above: Performed By: #### C BC #### [facility] [address] [place] [address] Dr. Beatrice Arellano Lymphocytes/100 WBC (Bld) 36.5 % Normal 20.5-60.0 [facility] Comment on above: Performed By: #### C BC #### [facility] [address] [place] [address] Dr. Beatrice Arellano MANUAL DIFF REQ NO Normal [facility] Comment on above: Performed By: #### C BC #### [facility] [address] [place] [address] Dr. Beatrice Arellano MCH (RBC) [Entitic mass] 35.8 pg Critically high 26.7-34.0 [facility] Comment on above: Performed By: #### C BC #### [facility] [address] [place] [address] Dr. Beatrice Arellano MCHC (RBC) [Mass/Vol] 38.4 g/dL Critically high 29.9-35.2 [facility] Comment on above: Performed By: #### C BC #### [facility] [address] [place] [address] Dr. Beatrice Arellano MCV (RBC) [Entitic vol] 93.2 fL Normal 81.0-99.0 [facility] Comment on above: Performed By: #### C BC #### [facility] [address] [place] [address] Dr. Beatrice Arellano MONO # 0.5 103/ul Normal 0.3-0.8 [facility] Comment on above: Performed By: #### C BC #### [facility] [address] [place] [address] Dr. Beatrice Arellano Monocytes/100 WBC (Bld) 11.5 % Normal 1.7-12.0 [facility] Comment on above: Performed By: #### C BC #### [facility] [address] [place] [address] Dr. Beatrice Arellano NEUT # 1.6 103/ul Normal 1.4-6.5 [facility] Comment on above: Performed By: #### C BC #### [facility] [address] [place] [address] Dr. Beatrice Arellano Neutrophils/100 WBC (Bld) 38.4 % Critically low 43.0-75.0 [facility] Comment on above: Performed By: #### C BC #### [facility] [address] [place] [address] Dr. Beatrice Arellano Platelet mean volume (Bld) [Entitic vol] 9.7 fL Normal 9.5-13.5 [facility] Comment on above: Performed By: #### C BC #### [facility] [address] [place] [address] Dr. Beatrice Arellano PLT 227 103/ul Normal 150-450 [facility] Comment on above: Performed By: #### C BC #### [facility] [address] [place] [address] Dr. Beatrice Arellano RBC 3.97 106/ul Critically low 4.20-5.40 [facility] Comment on above: Performed By: #### C BC #### [facility] [address] [place] [address] Dr. Baetrice Arellano WBC 4.3 103/ul Normal 4.0-11.0 [facility] Comment on above: Performed By: #### C BC #### [facility] [address] [place] [address] Dr. Beatrice Arellano GLYCOHEMOGLOBIN A1Con 2021 ADA RECOMMENDATION SEE BELOW Normal [facility] Comment on above: Result Comment: ADA RECOMMENDED LIMIT 4.0 - 6.0 ADA THERAPEUTIC TARGET < 7.0 ACTION SUGGESTED > 7.0 Performed By: #### P TT, PT #### [facility] [address] [place] [address] Dr. Beatrice Arellano Glucose [Mass/Vol] 97 mg/dL Normal [facility] Comment on above: Performed By: #### P TT, PT #### [facility] [address] [place] [address] Dr. Beatrice Arellano HbA1c (Bld) [Mass fraction] 5.0 % Normal 4.5-6.2 [facility] Comment on above: Performed By: #### P TT, PT #### [facility] [address] [place] [address] Dr. Beatrice Arellano IRONon 10-07-2022 Iron [Mass/Vol] 57.0 ug/dL Normal 50.0-170.0 [facility] Comment on above: Performed By: #### P TT, PT #### [facility] [address] [place] [address] Dr. Beatrice Arellano XR LSPINE MIN 4 VIEWSon 09-23 XR LSPINE MIN 4 VIEWS EXAMINATION: XR LSPINE MIN 4 VIEWS HISTORY: Pain in thoracic spine ; acute lumbar pain radiating into legs; no known injury COMPARISON: No relevant comparison available. FINDINGS: BONES: Slight left convex curvature lumbar spine. No fracture, spondylolisthesis, or significant facet arthropathy. DISC SPACES: Mild narrowing L5-S1. PARASPINOUS: Negative. No paraspinous abnormality is seen. OTHER: Negative. IMPRESSION: 1. Suspect L5-S1 mild degenerative disc disease. Electronically authenticated by: GABRIELLA WOO Date: 2022-10-07 13:13 Normal [facility] CBC AUTO DIFFon 03-24-2022 BASO # 0.1 103/ul Normal 0.0-0.1 [facility] Comment on above: Performed By: #### C BC #### [facility] [address] [place] [address] Dr. Beatrice Arellano Basophils/100 WBC (Bld) 1.0 % Normal 0.2-2.0 [facility] Comment on above: Performed By: #### C BC #### [facility] [address] [place] [address] Dr. Beatrice Arellano EO # 0.6 103/ul Normal 0.0-0.7 [facility] Comment on above: Performed By: #### C BC #### [facility] [address] [place] [address] Dr. Beatrice Arellano Eosinophils/100 WBC (Bld) 8.0 % Critically high 0.9-7.0 [facility] Comment on above: Performed By: #### C BC #### [facility] [address] [place] [address] Dr. Beatrice Arellano Erythrocyte distribution width (RBC) [Ratio] 11.8 % Normal 11.0-15.0 [facility] Comment on above: Performed By: #### C BC #### [facility] [address] [place] [address] Dr. Beatrice Arellano Hematocrit (Bld) [Volume fraction] 38.4 % Normal 36.0-48.0 [facility] Comment on above: Performed By: #### C BC #### [facility] [address] [place] [address] Dr. Beatrice Arellano Hemoglobin (Bld) [Mass/Vol] 13.2 g/dL Normal 12.0-16.0 [facility] Comment on above: Performed By: #### C BC #### [facility] [address] [place] [address] Dr. Beatrice Arellano IG # 0.03 10e3/ul Normal 0.00-0.03 [facility] Comment on above: Performed By: #### C BC #### [facility] [address] [place] [address] Dr. Beatrice Arellano IG % 0.4 % Normal 0.0-0.5 [facility] Comment on above: Performed By: #### C BC #### [facility] [address] [place] [address] Dr. Beatrice Arellano LYMPH # 2.0 103/ul Normal 1.2-3.8 [facility] Comment on above: Performed By: #### C BC #### [facility] [address] [place] [address] Dr. Beatrice Arellano Lymphocytes/100 WBC (Bld) 27.0 % Normal 20.5-60.0 [facility] Comment on above: Performed By: #### C BC #### [facility] [address] [place] [address] Dr. Beatrice Arellano MANUAL DIFF REQ NO Normal [facility] Comment on above: Performed By: #### C BC #### [facility] [address] [place] [address] Dr. Beatrice Arellano MCH (RBC) [Entitic mass] 33.4 pg Normal 26.7-34.0 [facility] Comment on above: Performed By: #### C BC #### [facility] [address] [place] [address] Dr. Beatrice Arellano MCHC (RBC) [Mass/Vol] 34.4 g/dL Normal 29.9-35.2 [facility] Comment on above: Performed By: #### C BC #### [facility] [address] [place] [address] Dr. Beatrice Arellano MCV (RBC) [Entitic vol] 97.2 fL Normal 81.0-99.0 [facility] Comment on above: Performed By: #### C BC #### [facility] [address] [address] [address] Beatrice Arellano MONO # 0.5 103/ul Normal 0.3-0.8 [facility] Comment on above: Performed By: #### C BC #### [facility] [address] [address] [address] Beatrice Arellano Monocytes/100 WBC (Bld) 6.5 % Normal 1.7-12.0 [facility] Comment on above: Performed By: #### C BC #### [facility] [address] [address] [address] Beatrice Arellano NEUT # 4.2 103/ul Normal 1.4-6.5 [facility] Comment on above: Performed By: #### C BC #### [facility] [address] [address] [address] Beatrice Arellano Neutrophils/100 WBC (Bld) 57.1 % Normal 43.0-75.0 [facility] Comment on above: Performed By: #### C BC #### [facility] [address] [address] [address] Beatrice Arellano Platelet mean volume (Bld) [Entitic vol] 9.8 fL Normal 9.5-13.5 [facility] Comment on above: Performed By: #### C BC #### [facility] [address] [address] [address] Beatrice Arellano PLT 223 103/ul Normal 150-450 [facility] Comment on above: Performed By: #### C BC #### [facility] [address] [address] [address] Beatrice Arellano RBC 3.95 106/ul Critically low 4.20-5.40 [facility] Comment on above: Performed By: #### C BC #### [facility] [address] [address] [address] Beatrice Arellano WBC 7.3 103/ul Normal 4.0-11.0 [facility] Comment on above: Performed By: #### C BC #### [facility] [address] [place] [address] Dr. Beatrice Arellano FERRITINon 03-24-2022 Ferritin [Mass/Vol] 58.0 ng/mL Normal 6.2-137.0 [facility] Comment on above: Performed By: #### T SH, PREGQNT #### [facility] [address] [place] [address] Dr. Beatrice Arellano PREG QUANT HCGon 03-24-2022 HCG QUANT 1 mIU/mL Normal [facility] Comment on above: Performed By: #### T SH, PREGQNT #### [facility] [address] [place] [address] Dr. Beatrice Arellano HCG RANGE SEE BELOW Normal [facility] Comment on above: Result Comment: 5-50 0-1 WEEK 40-300 1-2 WEEKS 100-1,000 2-3 WEEKS 500-6,000 3-4 WEEKS 5,000-200,000 1-2 MONTHS 10,000-100,000 2-3 MONTHS 3,000-50,000 2ND TRIMESTER 1,000-50,000 3RD TRIMESTER Performed By: #### T SH, PREGQNT #### [facility] [address] [place] [address] Dr. Beatrice Arellano PROTIMEon 03-24-2022 INR Coag (PPP) [Relative time] 0.95 {INR} Normal [facility] Comment on above: Performed By: #### P TT, PT #### [facility] [address] [place] [address] Dr. Beatrice Arellano INR GUIDELINES SEE BELOW Normal [facility] Comment on above: Result Comment: EDILBERTO RED INR: 2.0 - 3.0 CONDITIONS NOT LISTED BELOW 2.5 - 3.5 FOR PROSTHETIC HEART VALVE REPLACEMENT 2.5 - 3.5 RECURRENT THROMBOSIS Performed By: #### P TT, PT #### [facility] [address] [place] [address] Dr. Beatrice Arellano PT Coag (PPP) [Time] 10.3 s Normal 9.0-11.6 [facility] Comment on above: Performed By: #### P TT, PT #### [facility] [address] [address] [address] Beatrice Arellano PTTon 03-24-2022 aPTT Coag (Bld) [Time] 25.9 s Normal 22.3-36.2 [facility] Comment on above: Performed By: #### P TT, PT #### [facility] [address] [place] [address] Dr. Beatrice Arellano TSHon 03-24-2022 TSH 1.574 uIU/mL Normal 0.470-4.680 [facility] Comment on above: Performed By: #### T SH, PREGQNT #### [facility] [address] [place] [address] Dr. Beatrice Arellano TSH RANGE SEE BELOW Normal [facility] Comment on above: Result Comment: <0.3 4 UIU/ml HYPERTHYROID 0.34-5.60 UIU/ml EUTHYROID >5.60 UIU/ml HYPOTHYROID Performed By: #### T SH, PREGQNT #### [facility] [address] [place] [address] Dr. Beatrice Arellano US PELVIS AND TRANSVAGon US PELVIS AND TRANSVAG EXAMINATION: US PELVIS AND TRANSVAG HISTORY: Irregular periods COMPARISON: Ultrasound pelvis 01/12/2021 TECHNIQUE: Transabdominal and transvaginal sonographic examination. FINDINGS: UTERUS: Normal size and appearance. Uterus size: 9.2 x 3.3 x 5.3 cm ENDOMETRIUM: Normal homogeneous appearance. Endometrial thickness: 10 mm RIGHT OVARY: Normal size and appearance. Duplex Doppler demonstrates normal waveform and flow; resistive index 0.5. Ovary size: 3.4 x 1.9 x 3.4 cm LEFT OVARY: Normal size and appearance. Duplex Doppler demonstrates normal waveform and flow; resistive index 0.6. Ovary size: 2.3 x 1.7 x 2.4 cm CUL-DE-SAC: Unremarkable. No significant free fluid. BLADDER: Unremarkable. OTHER: None. IMPRESSION: 1. Normal pelvic ultrasound. No suspicious findings to account for patient's symptoms. Electronically authenticated by: GABRIELLA WOO Date: 2022-03-24 12:00 Normal [facility] COVID-19 Positive/Negativeon 01-15-2021 COVID-19 Positive/Negative Negative Negative [facility] Comment on above: Testing for SARS-CoV -2 by RT-PCRThis test was developed and its performance characteristics determined by [employer] ([employer] and validated at the [facility]. This test has not been FDA cleared or approved. This test has been authorized by FDA under an Emergency Use Authorization (EUA). This test has been validated in accordance with the FDA's Guidance Document (Policy for Diagnostics Testing in Laboratories Certified to Perform High Complexity Testing under CLIA prior to Emergency Use Authorization for Coronavirus Disease-2019 during the Public Health Emergency) issued on February 23, 2020. This test is only authorized for the duration of time the declaration that circumstances exist justifying the authorization of the emergency use of in vitro diagnostic tests for detection of SARS-CoV-2 virus and/or diagnosis of COVID-19 infection under section 564(b)(1) of the Act, 21 U.S.C. 360bbb-3(b)(1), unless the authorization is terminated or revoked sooner. Otheron 01-15-2021 Coronavirus 2019 PCR Interp N/A [facility] Vital Signs Date Time Vital Sign Value Performing Clinician Danniellei mikhail 09-10-2023 12:48-0400 Blood Pressure Location Benjamin SAMARAL [facility] 09-10-2023 12:48-0400 Diastolic blood pressure 79 mm[Hg] Benjamin PASCUALL [facility] 09-10-2023 12:48-0400 Heart rate 91 /min Benjamin SAMARAL [facility] 09-10-2023 12:48-0400 Respiratory rate 16 /min Benjamin PASCUALL [facility] 09-10-2023 12:48-0400 Systolic blood pressure 136 mm[Hg] Benjamin PASCUALL [facility] Encounters Encounter Date Encounter Type Care Provider Facility Start: 11-11-2023 End: 11-11-2023 ambulatory CHIRAG WEIR Not Available Start: 09-10-2023 End: 09-11-2023 ambulatory Jasmin Parrish Facility:[facility] Start: 09-10-2023 End: 09-10-2023 Patient encounter procedure Benjamin R NILL [facility] Start: 02-18-2023 End: 02-18-[address] CHIRAG WEIR . Facility:[facility] Start: 02-09-2023 End: 02-10-[address] JASMIN PARRISH . Facility:[facility] Start: 12-29-2022 End: 12-29-[address] JASMIN PARRISH . Facility:[facility] Start: 12-24-2022 End: 12-24-[address] DEVON RICHARDSON Facility: Start: 12-02-2022 End: 12-03-2022 ambulatory Benjamin R NILL Facility:[facility] Start: 12-02-2022 End: 12-02-2022 Patient encounter procedure Benjamin R NILL [facility] Start: 11-20-2022 End: 11-21-2022 ambulatory Benjamin R NILL [place] [place]: 11-20-2022 End: 11-21-2022 ambulatory Benjamin R NILL Facility:[facility] Start: 11-20-2022 End: 11-20-2022 Lab Drop off Benjamin R NILL [facility] Start: 11-20-2022 End: 11-20-2022 Patient encounter procedure Benjamin R NILL [facility] Start: 10-28-2022 End: 10-29-2022 ambulatory Benjamin R NILL Facility:[facility] Start: 10-10-2022 Encounter for genera l adult medical examination without abnormal findings DR JASMIN PARRISH . [facility] Start: 10-10-2022 ambulatory Jasmin Parrish Facility:[facility] Start: 10-10-2022 ambulatory Jasmin Parrish Facility:[facility] Start: 10-07-2022 End: 10-08-[address] JASMIN PARRISH . Facility: Start: 10-07-2022 End: 10-08-2022 Encounter for general adult medical examination without abnormal findings DR JASMIN PARRISH . Facility:[facility] Start: 03-24-2022 End: 03-25-[address] CHIRAG WEIR . Facility:[facility] Start: 01-15-2021 End: 01-15-2021 Patient encounter procedure Jasmin Parrish -Pre-Surgical Testing Procedures Date Procedure Procedure Detail Performing Clinician section Benjamin Amos Cholecystectomy Benjamin RAMESH Colposcopy Benjamin RAMESH Esophagogastroduodenoscopy Amelia RAMESH Excisional biopsy Benjamin GIBSON Comment on above: scalp x 2 Immunizations Immunization Date Immunization Notes Care Provider Fa cili 11-01-2022 SARS-CoV-2 (COVID-19 ) [id number] Benjamin RAMESH [facility] 10-25-2021 SARS-CoV-2 (COVID-19 ) mRNA BNT-162b2 vax Benjamin RAMESH [facility] 03-20-2021 SARS-CoV-2 (COVID-19 ) mRNA BNT-162b2 vax Benjamin PASCUALL [facility] Comment on above: Result Comment: 2022: TPVALL 02-27-2021 SARS-CoV-2 (COVID-19 ) mRNA BNT-162b2 vax Benjamin RAMESH [facility] Comment on above: Result Comment: 2022: TPVALL NEGATED: Highlighted row has not occurred!09-10-2023 influenza virus vaccine, unspecified formulation Benjamin RAMESH [facility] NEGATED: Highlighted row has not occurred!10-28-2022 influenza virus vaccine, unspecified formulation Benjamin RAMESH [facility] Payers Date Payer Category Payer Unknown [id number] 2.16.84 [id number] 1994 Unknown [id number] 2.16.84 [id number] 1994 Unknown [id number] 2.16.84 [id number] 1994 Unknown [id number] 2.16.84 [id number] 1994 Unknown [id number] 2.16.84 [id number] 1994 Unknown [id number] 2.16.84 [id number] 1994 Unknown [id number] 2.16.8 [id number] 1994 Unknown [id number] 2.16.8 [id number] 1994 Unknown [id number] 2.16.8 [id number] 1994 Unknown [id number] 2.16.8 [id number] 1994 Unknown [id number] 2.16.8 [id number] 1994 Unknown [id number] 2.16.8 [id number] 1994 Unknown [id number] 2.16.840 .[id number] 1959 Unknown [id number] 1960 Unknown [id number] Self-pay Self Pay [id number] Social History Date Type Detail [facility] Start: 1995 Sex Assigned At Female F [facility] Start: 10-28-2022 Tobacco smoking status Ex-smoker (fi nding) [facility] Tobacco smoking status Former sm okeless tobacco user, quit more than 30 days ago [facility] Sex Assigned At Female [facility] Goals Date Patient Goal Desired Activity /State Functional Status Date Assessment Result Facility 09-10-2023 Functional Status N/A [facility] Clinical Note 09-10-2023 Note Date & Type Note Facility 09-10-2023 Note Chief Complaint consultation for GERD HPI Staff 27 year old female presents on consultation from Dr. Parrish for GERD. Reports burning epigastric pain and nausea for several weeks. Taking Pepcid 40mg BID and Carafate QID without change in symptoms. She has changed her diet to eat mostly chicken and vegetables with minimal improvement in burning sensation. Denies heartburn but states esophagus feels warm . Denies vomiting, indigestion or bloating. EGD completed 12/2020 with GERD, esophagitis and antral gastritis. Was prescribed Protonix at that time; she stopped this after several months as this did not improve her symptoms. History of Present Illness 27 yo female with h/o ADHD, asthma, depression, hypercholesterolemia, chronic cystitis, GERD, referred for epigastric pain; patient reports several month h/o intermittent epigastric burning pain, worse with fatty foods; increased bloating; initially had N/V and was seen in ED, negative w/u; emesis resolved; started on pepcid by Dr Parrish, also treated with Cipro for UTI; no improvement; was to start Carafate 10 days ago, but she did not know about the prescription; last EGD almost 3 years ago with mild gastritis and esophagitis; patient placed on Protonix then, but discontinued it after several month due to no improvement in symptoms; occasional GERD symptoms, takes Tums; abd operations significant for cholecystectomy and ; no asa or NSAID use; was drinking energy drinks but discontinued them; no symptoms if only eats chicken and vegetables; no fmhx of GI malignancy or IBD; former smoker, quit 3 years ago. Review of Systems PHQ Score Initial Depression Screen Score: 0 ROS - Provider Constitutional: no fever, no sweats, no weight loss. Eyes: no glasses, no blurred vision, no visual loss. ENMT: no dentures, no hoarseness, no swallowing difficulties, no hearing loss, no ear infection(s), no nose bleeds. Cardiovascular: normal blood pressure, no chest pain, regular heartbeat, no heart murmur. Respiratory: no shortness of breath, no cough, no asthma, no wheezing. Gastrointestinal: no nausea, no vomiting, no diarrhea, no constipation, no blood in stool, no change in bowel habits, no abdominal pain, no hepatitis. Genitourinary: no kidney stones, no urine infection, no dysuria. Musculoskeletal: no pain, no weakness. Skin: no changing moles, no rash, no skin lumps. Neurologic: no seizures, no epilepsy, no headache. Psychiatric: no emotional or psychiatric problem. Heme/Lymph: no bleeding problems, no anemia, no blood clots, no transfusions. Allergy/Immunologic: no swollen lymph nodes/glands, no IV drug abuse. Other: Additional ROS info: Except as noted in the above Review of Systems and in the History of Present Illness, all other systems have been reviewed and are negative or noncontributory. Physical Exam Vitals & Measurements HR: 91(Peripheral) RR: 16 BP: 136/79 HT: 62 in HT: 157.4 cm WT: 76.6 kg WT: 168.52 lb BMI: 30.92 HEENT: normal conjunctiva, sclera clear, no scleral icterus, EOM intact, PERRLA, oral mucosa moist without lesions. Neck: trachea midline, no mass, symmetric, no thyromegaly or nodules, no adenopathy Respiratory: lungs CTA, respirations non labored. Cardiovascular: regular rate and rhythm, no murmur, no pedal edema or varicosities. Gastrointestinal: obese, soft, non distended, no tenderness, no masses, no palpable hernias, diastasis recti no, no hepatosplenomegaly; normal bs Lymphatic: no cervical adenopathy, no supraclavicular adenopathy. Musculoskeletal: normal gait, digits and nails without infection, nodes, cyanosis, clubbing. Skin: no rashes, no lesions, no ulcers, no subcutaneous nodules, induration. Psychiatric/Neuro: oriented to time, place, person, judgement normal, affect appropriate for age, insight intact, no focal deficits. Tests: review of old records completed , Discussed surgical options, risks, and possible complications with patient. Assessment/Plan 1. Epigastric pain (R10.13: Epigastric pain) likely related to bile reflux; recommend trial of Carafate; if no improvement in several weeks, can schedule for repeat EGD under anesthesia, informed consent obtained; call with problems/questions. Ordered: sucralfate, 1 gm = 1 tab(s), Oral, QID, # 120 tab(s), Refills(s) 3, Pharmacy: [facility]/pharmacy #[id number], 157.4, cm, 09/10/23 12:54:00 EDT, Height/Length Dosing, 76.6, kg, 09/10/23 12:54:00 EDT, Weight Dosing 2. Duodenogastric bile reflux (K21.9: Gastro-esophageal reflux disease without esophagitis) see # 1 Ordered: sucralfate, 1 gm = 1 tab(s), Oral, QID, # 120 tab(s), Refills(s) 3, Pharmacy: [facility]/pharmacy #[id number], 157.4, cm, 09/10/23 12:54:00 EDT, Height/Length Dosing, 76.6, kg, 09/10/23 12:54:00 EDT, Weight Dosing Follow-up No qualifying data available Problem List/Past Medical History Ongoing ADHD Asthma BMI 30.0-30.9,adult Chronic cystitis Dependent edema Depression Duodenogastric bile reflux Dysuria Epigastric pain (more content not included)... [facility] Comment on above: Result Comment: Elec tronically Signed By: GADIEL CASTILLO, Benjamin Escobedo\Date and Time Signed: 09/10/23 14:18 EDT Clinical Note 10-28-2022 Note Date & Type Note Facility 10-28-2022 Note Chief Complaint consultation for nevus HPI Staff 27 year old female presents on consultation from Dr. Parrish scalp lesion x 2. Reports flesh colored lesion to left parietal scalp for several years. Reports gradual increase in size. Denies discomfort or bleeding. Does occasionally itch and gets tangled in hair. Right occipital scalp lesion presents several years. Slight increase in size. Denies this being painful History of Present Illness 27 yo female with h/o ADHD, GERD, IBD, referred for irritated, enlarging skin lesions of scalp; sore when rubbed, no ulceration or bleeding; no pigmentation change; no asa use, on NSAIDs prn; no tobacco use; no personal or fmhx of skin cancer. Review of Systems PHQ Score Initial Depression Screen Score: 0 ROS - Provider Constitutional: no fever, no sweats, no weight loss. Eyes: no glasses, no blurred vision, no visual loss. ENMT: no dentures, no hoarseness, no swallowing difficulties, no hearing loss, no ear infection(s), no nose bleeds. Cardiovascular: normal blood pressure, no chest pain, regular heartbeat, no heart murmur. Respiratory: no shortness of breath, no cough, no asthma, no wheezing. Gastrointestinal: no nausea, no vomiting, no diarrhea, no constipation, no blood in stool, no change in bowel habits, no abdominal pain, no hepatitis. Genitourinary: no kidney stones, no urine infection, no dysuria. Musculoskeletal: no pain, no weakness. Skin: no changing moles, no rash, no skin lumps. Neurologic: no seizures, no epilepsy, no headache. Psychiatric: no emotional or psychiatric problem. Heme/Lymph: no bleeding problems, no anemia, no blood clots, no transfusions. Allergy/Immunologic: no swollen lymph nodes/glands, no IV drug abuse. Other: Additional ROS info: Except as noted in the above Review of Systems and in the History of Present Illness, all other systems have been reviewed and are negative or noncontributory. Physical Exam Vitals & Measurements HR: 76(Peripheral) RR: 16 BP: 105/71 HT: 62 in HT: 157.4 cm WT: 83.8 kg WT: 184.36 lb BMI: 33.82 HEENT: normal conjunctiva, sclera clear, no scleral icterus, EOM intact, PERRLA, oral mucosa moist without lesions. Neck: trachea midline, no mass, symmetric, no thyromegaly or nodules, no adenopathy Lymphatic: no cervical adenopathy, no axillary adenopathy, no inguinal adenopathy. Musculoskeletal: normal gait, digits and nails without infection, nodes, cyanosis, clubbing. Skin: no rashes, no lesions, no ulcers, left parietal scalp with 7 mm raised, irregular lesion, no ulceration or scab, no pigmentation change; right occipital scalp with 4 mm raised lesion, nonulcerated. Psychiatric/Neuro: oriented to time, place, person, judgement normal, affect appropriate for age, insight intact, no focal deficits. Tests: review of old records completed, Discussed surgical options, risks, and possible complications with patient. Assessment/Plan 1. 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 Follow-up No qualifying data available Problem List/Past Medical History Ongoing ADHD BMI 33.0-33.9,adult Chronic cystitis Dependent edema Depression Dysuria GERD (gastroesophageal reflux disease) IBS (irritable bowel syndrome) Insomnia Neoplasm of uncertain behavior of skin Seasonal allergic rhinitis Straining to void Urinary frequency Historical No qualifying data Procedure/Surgical History section, Cholecystectomy, Colposcopy, EGD - Esophagogastroduodenoscopy. Medications CeleXA 20 mg Tab diclofenac sodium 75 mg Oral EC Tab, 75 mg= 1 tab(s), Oral, BID 12/12 oral tablet, 1 tab(s), Oral, Daily tiZANidine 4 mg Tab, 8 mg= 2 tab(s), Oral, Bedtime venlafaxine 37.5 mg Cap-ER Ventolin HFA 90 mcg/inh Aerosol-Adpt, 2 puff(s), Inhalation, QID, PRN Allergies No Known Allergies Social History Alcohol - Denies Alcohol Use, 07/19/2019 Substance Abuse - Denies Substance Abuse, 10/28/2022 Tobacco Former smoker, quit more than 30 days ago Tobacco Use:. Former smokeless tobacco user, quit more than 30 days ago Smokeless Tobacco Use:. Cigarettes, Vaping, 0.5 per day. Started age 19.0 Years. Stopped age 24 Years., 10/28/2022 Family History Family history is negative Immunizations Vaccine Date Status Comments influenza virus vaccine, inactivated - Not Given Patient Refuses [facility] Comment on above: Result Comment: Elec tronically Signed By: GADIEL CASTILLO, Benjamin Escobedo\Date and Time Signed: 10/28/22 08:47 EST Evaluation + Plan note Note Date & Type Note Facility Evaluation + Plan note No data available for this section [facility] [place] [facility] Discharge instructions Note Date & Type Note Facility Hospital Discharge instructions No data available for this section [facility] [place] Progress note Note Date & Type Note Facility Progress note No data available for this section [facility] [place] Advance Directives No Advanced Directives Records Found Advance Directive Response Recorded Date/ Time Advance Directives No December 12:39pm Chief Complaint and Reason for Visit Chief Complaint Gerd, Abdominal Pain Assessments No Assessments Information Available Summary Purpose Family History No Family History Records FoundNo Family History Records Found No data available for this section No Family History Records FoundNo Family History Records Found Additional Source Comments Patient Care team informatio n (unrecognized section and content) Personnel Name: Jasmin Parrish MD Address: Address: [address] [place] [address] Personnel Name: Jasmin Parrish MD Address: Address: [address] [place] [address] Personnel Name: Jasmin Parrish MD Address: Address: [address] [place] [address] Personnel Name: Jasmin Parrish MD Address: Address: [address] [place] [address] INFORMATION SOURCE (unrecogn ized section and content) DATE CREATED AUTHOR 11/21/2022 [facility] DATE CREATED AUTHOR AUTHOR'S ORGANIZ ATION 02/28/2023 [facility] DATE CREATED AUTHOR AUTHOR'S ORGANIZ ATION 09/12/2023 [facility] DATE CREATED AUTHOR AUTHOR'S BRAYDEN ATION 11/12/2023 [facility] FOR RECORDS PERTAINING TO PATIENTS WHO ARE OR HAVE BEEN ENROLLED IN A CHEMICAL DEPENDENCY/SUBSTANCEABUSE PROGRAM, SOME INFORMATION MAY BE OMITTED. This clinical summary was aggregated from multiple sources. Caution should be exercised in using it in the provision of clinical care. This summary normalizes information from multiple sources, and as a consequence, information in this document may materially change the coding, format and clinical context of patient data. In addition, data may be omitted in some cases. CLINICAL DECISIONS SHOULD BE BASED ON THE PRIMARY CLINICAL RECORDS. [facility] [employer] provides no warranty or guarantee of the accuracy or completeness of information in this document.
[2024-01-05 10:04] LABS: Basophils Percent Auto 0.7 % (0.2-2.0); Eosinophils Absolute Auto 0.3 10^3/uL (0.0-0.7); Hematocrit 40.6 % (36.0-48.0); Hemoglobin 13.8 g/dL (12.0-16.0); Immature Granulocytes Abs Auto 0.01 10^3/uL (0.00-0.03); Immature Granulocytes Pct Auto 0.2 % (0.0-0.5); Lymphocytes Absolute Auto 1.3 10^3/uL (1.2-3.8); Lymphocytes Percent Auto 22.7 % (20.5-60.0); Mean Corpuscular Hemoglobin 33.7 pg (26.7-34.0); Mean Corpuscular Volume 99.3 fL (81.0-99.0); Mean Platelet Volume 9.9 fL (9.5-13.5); Monocytes Absolute Auto 0.4 10^3/uL (0.3-0.8); Monocytes Percent Auto 6.7 % (1.7-12.0); Neutrophils Absolute Auto 3.6 10^3/uL (1.4-6.5); Neutrophils Percent Auto 63.7 % (43.0-75.0); Platelet Count 196 10^3/uL (150-450); Red Blood Count 4.09 10^6/uL (4.20-5.40); Red Cell Distribution Width 11.7 % (11.0-15.0); White Blood Count 5.6 10^3/uL (4.0-11.0)
[2024-01-05 10:23] LABS: Estimated Average Glucose 85 mg/dL; Glycohemoglobin A1C 4.6 % (4.5-6.2)
[2024-01-05 11:24] LABS: Alanine Aminotransferase 18 U/L (14-59); Albumin Globulin Ratio 0.9; Albumin Level 3.4 g/dL (3.4-5.0); Alkaline Phosphatase 41 U/L (46-116); Anion Gap 11.5; Aspartate Amino Transferase 12 U/L (15-37); BUN Creatinine Ratio 10.8; Bilirubin Total 0.4 mg/dL (0.2-1.0); Calcium 8.4 mg/dL (8.5-10.1); Carbon Dioxide 26.7 mmol/L (21.0-32.0); Chloride 106 mmol/L (98-107); Cholesterol 164 mg/dL (<=200); Estimated GFR (African America >60 (>=60); Estimated GFR (Non-African Ame >60 (>=60); Free T3 1.55 pg/mL (2.18-3.98); Globulin 3.7 g/dL; Glucose 92 mg/dL (74-106); HDL Cholesterol 41 mg/dL (40-60); Potassium 4.2 mmol/L (3.5-5.1); Sodium 140 mmol/L (136-145); Thyroid Stimulating Hormone 1.961 uIU/mL (0.358-3.740); Total Protein 7.1 g/dL (6.4-8.2); Triglycerides 206 mg/dL (<=150); VLDL CHOLESTEROL 41.2 mg/dL
[2024-01-06 10:09] LABS: Insulin 25.1 uIU/mL (2.6-24.9)
== END 2024-01-05 08:58 | disposition home or self-care (01) ==
LOC: LAB 08:59
PROVIDERS: PCP Family Medicine; Visit Provider Family Medicine
DX: K21.9 Gastro-esophageal reflux disease without esophagitis (principal)
CPT/HCPCS: 36415; 80053; 80061; 82306; 83036; 83525; 83540; 84436; 84443; 84481; 85025

== ENCOUNTER 2024-02-11 10:15 | Outpatient (OUT) | payer BC, SELFPAY ==
--- OUTSIDE RECORDS SUMMARY | 2024-02-11 10:32 | XMS_ITS | CCD ---
Author Organization [facility] Care Team Providers Care Flight Engineer Helicopter Name Role Phone Jasmin Parrish Primary Care Provider Kaushik Richardson Attending Provider Jasmin Parrish Primary Care Physician [phone] SAMARAL, Benjamin R Attending Unavailable DESTIN ., DR BEARD Admitting Unavailable REQUEST, DR NYE LISTED Primary Care Unavaila ble DESTIN ., [...] ZIEBER, DR GABRIELLA Velazco Consulting Unavailable Jasmin Parrish Referring Unavailable NILL, Benjamin R Attending Unavailable NILL, Benjamin R Attending Unavailable NILL, Benjamin R Attending Unavailable NILL, Benjamin R Attending Unavailable HoyJasmin Referring Unavailable NILL, Benjamin R Attending Unavailable NILL, Benjamin R Admitting Unavailable NILL, Benjamin R Attending Unavailable DESTINCHIRAG Attending Unavailable Unavailable Unavailable Unavailable Medications Current [...] QID, # 120 tab(s), Refills(s) 3, Pharmacy: [facility]/pharmacy #[id number], 157.4, cm, 09/10/23 12:54:00 EDT, [...] reflux Your Care Team Attending Physician - Benjamin RAMESH MD Primary Care Physician - aJsmin Parrish MD Referring Physician - Jasmin Parrish MD This [...] Duodenogastric bile reflux Refills: 3 Pickup at [facility]/pharmacy #[id number] Unchanged albuterol (Ventolin HFA 90 mcg/ inh [...] physician if questions or concerns Pharmacy Information [id number] [address], [place] [id number] [phone] Medications and Immunizations Administered Not Given influenza [...] for. Neoplasm of uncertain behavior of skin [facility] Consultation Noteon 08-31-20 23 Consultation Note [id number] F [facility] Physician Referralon 023 Physician Referral [id number] [id number] F [facility] PAP ACOG PANEL 2: 20 to 28on 02-26-2023 . . [facility] Comment on above: Performed By: #### P TT, PT #### [facility] [place] [facility] [address] [place], [place] [address] Dr. Beatrice Arellano Age Gdln ACOG Testing [facility] Comment on above: Performed By: #### P TT, PT #### [facility] [place] [facility] [address] [place], [place] [address] Dr. Beatrice Arellano DIAGNOSIS: Comment [facility] Comment on above: Result Comment: NEGA TIVE FOR INTRAEPITHELIAL LESION OR MALIGNANCY. Performed By: #### P TT, PT #### [facility] [place] [facility] [address] [place] [address] [address] Beatrice Arellano Methodology: Comment Normal [facility] Comment on above: Result Comment: This liquid based ThinPrep(R) pap test was screened with the use of an image guided system. Performed By: #### P TT, PT #### [facility] [place] [facility] [address] [address] [address] Beatrice Arellano Note: Comment Normal [facility] Comment on above: Result Comment: The Pap smear is a screening test designed to aid in the detection of premalignant and malignant conditions of the uterine cervix. It is not a diagnostic procedure and should not be used as the sole means of detecting cervical cancer. Both false-positive and false-negative reports do occur. . Performed By: #### P TT, PT #### [facility] [place] [facility] [address] [place] [address] Dr. Beatrice Arellano Performed by: Comment Normal [facility] Comment on above: Result Comment: Charles Whiting, Recruiting Associate (ASCP) Performed By: #### P TT, PT #### [facility] [place] [facility] [address] [place] [address] Dr. Beatrice Arellano Reflex Criteria: Comment Normal [facility] Comment on above: Result Comment: The HPV DNA reflex criteria were not met with this specimen result therefore, no HPV testing was performed. . Performed By: #### P TT, PT #### [facility] [place] [facility] [address] [place] [address] Dr. Beatrice Arellano Specimen adequacy: Comment Normal [facility] Comment on above: Result Comment: Sati sfactory for evaluation. Endocervical and/or squamous metaplastic cells (endocervical component) are present. Performed By: #### P TT, PT #### [facility] [place] [facility] [address] [place] [address] Dr. Beatrice Arellano LIPID PROFILEon 02-09-2023 CHOL-HDL RATIO NORM SEE BELOW Normal [facility] Comment on above: Result Comment: 3.3 - 4.4 LOW RISK 4.4 - 7.1 AVERAGE RISK 7.1 - 11.0 MODERATE RISK >11.0 HIGH RISK Performed By: #### P TT, PT #### [facility] [place] [facility] [address] [address] [address] Beatrice Arellano Cholesterol [Mass/Vol] 160 mg/dL Normal <=200 [facility] Comment on above: Performed By: #### P TT, PT #### [facility] [place] [facility] [address] [address] [address] Beatrice Arellano Cholesterol in HDL [Mass/Vol] 50 mg/dL Normal 40-60 [facility] Comment on above: Performed By: #### P TT, PT #### [facility] [place] [facility] [address] [address] [address] Beatrice Arellano Cholesterol in LDL [Mass/Vol] 94.6 mg/dL Normal [facility] Comment on above: Performed By: #### P TT, PT #### [facility] [place] [facility] [address] [place] [address] Dr. Beatrice Arellano Cholesterol.total/C holesterol in HDL [Mass ratio] 3.2 {ratio} Normal [facility] Comment on above: Performed By: #### P TT, PT #### [facility] [place] [facility] [address] [address] [address] Beatrice Arellano HDL NORMAL > or = 60 mg/dl - LO W CARDIOVASCULAR RISK <40 mg/dl - HIGH CARDIOVASCULAR RISK Normal [facility] Comment on above: Performed By: #### P TT, PT #### [facility] [place] [facility] [address] [place] [address] Dr. Beatrice Arellano LDL CALC NORMAL SEE BELOW Normal [facility] Comment on above: Result Comment: <100 mg/dl OPTIMAL 100 - 129 mg/dl NEAR OR ABOVE OPTIMAL 130 - 159 mg/dl BORDERLINE HIGH 160 - 189 mg/dl HIGH >190 mg/dl VERY HIGH Performed By: #### P TT, PT #### [facility] [place] [facility] [address] [place] [address] Dr. Beatrice Arellano Triglyceride [Mass/Vol] 77 mg/dL Normal <=150 [facility] Comment on above: Performed By: #### P TT, PT #### [facility] [place] [facility] [address] [address] [address] Beatrice Arellano VLDL CALC 15.4 mg/dL Normal [facility] Comment on above: Performed By: #### P TT, PT #### [facility] [place] [facility] [address] [address] [address] Beatrice Arellano LIVER PROFILEon 02-09-2023 Albumin [Mass/Vol] 3.7 g/dL Normal 3.4-5.0 [facility] Comment on above: Performed By: #### P TT, PT #### [facility] [place] [facility] [address] [place] [address] Dr. Beatrice Arellano Albumin/Globulin [Mass ratio] 1.1 {ratio} Normal [facility] Comment on above: Performed By: #### P TT, PT #### [facility] [place] [facility] [address] [place] [address] Dr. Beatrice Arellano ALP [Catalytic activity/Vol] 66 U/L Normal 46-116 [facility] [place] [facility] Comment on above: Performed By: #### P TT, PT #### [facility] [place] [facility] [address] [place] [address] Dr. Beatrice Arellano ALT [Catalytic activity/Vol] 19 U/L Normal 14-59 [facility] Comment on above: Performed By: #### P TT, PT #### [facility] [place] [facility] [address] [place] [address] Dr. Beatrice Arellano AST [Catalytic activity/Vol] 15 U/L Normal 15-37 [facility] Comment on above: Performed By: #### P TT, PT #### [facility] [place] [facility] [address] [place] [address] Dr. Beatrice Arellano BILI, CONJUGATED 0.1 mg/dL Normal 0.0-0.2 [facility] Comment on above: Performed By: #### P TT, PT #### [facility] [place] [facility] [address] [place] [address] Dr. Beatrice Arellano Bilirubin [Mass/Vol] 0.4 mg/dL Normal 0.2-1.0 [facility] Comment on above: Performed By: #### P TT, PT #### [facility] [place] [facility] [address] [address] [address] Beatrice Arellano Globulin (S) [Mass/Vol] 3.4 g/dL Normal [facility] Comment on above: Performed By: #### P TT, PT #### [facility] [place] [facility] [address] [address] [address] Beatrice Arellano Protein [Mass/Vol] 7.1 g/dL Normal 6.4-8.2 [facility] Comment on above: Performed By: #### P TT, PT #### [facility] [place] [facility] [address] [place] [address] Dr. Beatrice Arellano Covid-19 PCR ([facility])on SARS-CoV-2 (COVID-19) RNA AISHA+probe Ql (Unsp spec) Not detected Normal NOT DETECTED [facility] [place] [facility] Comment on above: Result Comment: When [...] for this test is supported by the [employer] of Health and Human Service's declaration that [...] Performed By: #### P TT, PT #### [facility] [place] [facility] [address] [place] [address] Dr. Beatrice Arellano INFLUENZA A AND B AGon 12-29 INFLUANEGH SEE BELOW Normal [facility] Comment on above: Result Comment: Nega tive for Flu A protein angiten. Infection due to Flu A cannot be ruled out. Flu A angiten in the sample may be below the detection limit of the test. Performed By: #### I NFLUAB #### [facility] [place] [facility] [address] [place] [address] Dr. Beatrice Arellano [facility] SEE BELOW Normal [facility] Comment on above: Result Comment: Nega tive for Flu B protein antigen. Infection due to Flu B cannot be ruled out. Flu B antigen in the sample may be below the detection limit of the test. Performed By: #### I NFLUAB #### [facility] [place] [facility] [address] [place] [address] Dr. Beatrice Arellano INFLUENZA A AG Negative Normal NEGATIVE SEE COMMENT [facility] Comment on above: Performed By: #### I NFLUAB #### [facility] [place] [facility] [address] [place] [address] Dr. Beatrice Arellano INFLUENZA B AG Negative Normal NEGATIVE SEE COMMENT [facility] Comment on above: Performed By: #### I NFLUAB #### [facility] [place] [facility] [address] [place] [address] Dr. Beatrice Arellano ER URINE PROFILEon 3 Bilirubin Ql (U) SMALL Abnormal NEGATIVE [facility] Comment on above: Performed By: #### T SH, PREGQNT #### [facility] [place] [facility] [address] [place] [address] Dr. Beatrice Arellano Clarity (U) CLEAR Normal CLEAR [facility] Comment on above: Performed By: #### T SH, PREGQNT #### [facility] [place] [facility] [address] [place] [address] Dr. Beatrice Arellano Color (U) YELLOW Normal YELLOW [facility] [place] [facility] Comment on above: Performed By: #### T SH, PREGQNT #### [facility] [place] [facility] [address] [place] [address] Dr. Beatrice Arellano ERUAHD A micrscopic examina tion will be performed if indicated. Normal [facility] [place] [facility] Comment on above: Performed By: #### T SH, PREGQNT #### [facility] [place] [facility] [address] [place] [address] Dr. Beatrice Arellano Glucose Ql (U) Negative Normal NEGATIVE [facility] Comment on above: Performed By: #### T SH, PREGQNT #### [facility] [place] [facility] [address] [place] [address] Dr. Beatrice Arellano Hemoglobin Ql (U) Negative Normal NEGATIVE [facility] Comment on above: Performed By: #### T SH, PREGQNT #### [facility] [place] [facility] [address] [place] [address] Dr. Beatrice Arellano Ketones Ql (U) 15 mg/dl Abnormal NEGATIVE [facility] Comment on above: Performed By: #### T SH, PREGQNT #### [facility] [place] [facility] [address] [place] [address] Dr. Beatriec Arellano LEUKOCYTES Negative Normal NEGATIVE [facility] Comment on above: Performed By: #### T SH, PREGQNT #### [facility] [place] [facility] [address] [place] [address] Dr. Beatrice Arellano Nitrite Ql (U) Negative Normal NEGATIVE [facility] Comment on above: Performed By: #### T SH, PREGQNT #### [facility] [place] [facility] [address] [place] [address] Dr. Beatrice Arellano pH (U) 5.5 [pH] Normal 5-9 [facility] Comment on above: Performed By: #### T SH, PREGQNT #### [facility] [place] [facility] [address] [place] [address] Dr. Beatrice Arellano SPEC GRAVITY 1.025 Normal 1.005-<=1.02 5 [facility] Comment on above: Performed By: #### T SH, PREGQNT #### [facility] [place] [facility] [address] [place] [address] Dr. Beatrice Arellano UA PROTEIN Negative Normal NEGATIVE/ TRACE [facility] [place] [facility] Comment on above: Performed By: #### T SH, PREGQNT #### [facility] [place] [facility] [address] [place] [address] Dr. Beatrice Arellano UR MICRO IND NOT INDICATED Normal [facility] Comment on above: Performed By: #### T SH, PREGQNT #### [facility] [place] [facility] [address] [place] [address] Dr. Beatrice Arellano Urobilinogen Qn (U) 0.2 {Elana'U}/dL Normal 0.2 - 1. 0 [facility] Comment on above: Performed By: #### T SH, PREGQNT #### [facility] [place] [facility] [address] [address] [address] Beatrice Arellano URon 12-24-2022 , QUAL Negative Normal NEGATIVE [facility] Comment on above: Performed By: #### T SH, PREGQNT #### [facility] [place] [facility] [address] [address] [address] Beatrice Arellano PROF CHEM 8 (BAS METB)on Anion gap [Moles/Vol] 14.2 mmol/L Normal [facility] Comment on above: Performed By: #### P TT, PT #### [facility] [place] [facility] [address] [place] [address] Dr. Beatrice Arellano Calcium [Mass/Vol] 8.8 mg/dL Normal 8.5-10.1 [facility] Comment on above: Performed By: #### P TT, PT #### [facility] [place] [facility] [address] [address] [address] Beatrice Arellano Chloride [Moles/Vol] 102 mmol/L Normal 98-107 [facility] [place] [facility] Comment on above: Performed By: #### P TT, PT #### [facility] [place] [facility] [address] [place] [address] Dr. Beatrice Arellano CO2 [Moles/Vol] 24.6 mmol/L Normal 21.0-32.0 [facility] Comment on above: Performed By: #### P TT, PT #### [facility] [place] [facility] [address] [place] [address] Dr. Beatrice Arellano Creatinine [Mass/Vol] 0.67 mg/dL Normal 0.55-1.02 [facility] [place] [facility] Comment on above: Performed By: #### P TT, PT #### [facility] [place] [facility] [address] [place] [address] Dr. Beatrice Arellano EGFR-AF PARAGUAYAN >60 Normal >=60 [facility] Comment on above: Performed By: #### P TT, PT #### [facility] [place] [facility] [address] [place] [address] Dr. Beatrice Arellano EGFR-NON AF PARAGUAYAN >60 Normal >=60 [facility] Comment on above: Performed By: #### P TT, PT #### [facility] [place] [facility] [address] [address] [address] Beatrice Arellano Glucose [Mass/Vol] 106 mg/dL Normal 74-106 [facility] Comment on above: Performed By: #### P TT, PT #### [facility] [place] [facility] [address] [address] [address] Beatrice Arellano Potassium [Moles/Vol] 3.8 mmol/L Normal 3.5-5.1 [facility] Comment on above: Performed By: #### P TT, PT #### [facility] [place] [facility] [address] [address] [address] Beatrice Arellano Sodium [Moles/Vol] 137 mmol/L Normal 136-145 [facility] Comment on above: Performed By: #### P TT, PT #### [facility] [place] [facility] [address] [address] [address] Beatrice Arellano Urea nitrogen [Mass/Vol] 14.0 mg/dL Normal 7.0-18.0 [facility] Comment on above: Performed By: #### P TT, PT #### [facility] [place] [facility] [address] [place] [address] Dr. Beatrice Arellano Urea nitrogen/Creatinine [Mass ratio] 20.9 mg/mg Normal [facility] Comment on above: Performed By: #### P TT, PT #### [facility] [place] [facility] [address] [place] [address] Dr. Beatrice Arellano General Surgery Office/Clini c [...] - Not Given Patient Refuses Normal [facility] Comment on above: Result Comment: Elec tronically Signed By: GADIEL CASTILLO, Benjamin Escobedo\Date and Time Signed: 12/02/22 10:23 EST Coding Summary.on 11-26-2022 Coding Summary. CD:[id number] Gh0b Ww+PGhlYWQ+YW6YZSPwH39xu MBbwJ0RX6iWDV4WAIOQVXJCL T5ZQA8kgZC1BJwcY5BhhmZp RtaqnMNdAS67EZb6CEH2tMln OIiiiT2mjUFaB2u2XyUlAV44 yT10SQdjIZWfWbP6DlNnwydw bWFy A3tzFjZykNLzInt+PHRhYmxl IHdpZHRoPScxMDAlJyBzdHls SL1vOs5gSCNmTLVsbYvvyRKx OiBj j7jjRQVoCSbwMV8qoPrxU2Wa cHI2YYNfu8i0Mw67xWU+PHRk DUF8uFuaMAxvp299CpXxv3bw IDM3 qGAyYStiDEX1J72nb5C7JZDc DBQwWUR4dXS4tE1riJkefckb U7UadYXfChK4XKM1sUFngT7y bGln znzryX5eZyo+L48QLK0LOBQD DH5QVim4M7OkHgzdfYP+PC90 MNTnBV00kAGheEJbi8cyhPt5 JzEw ZEUlBDD3fIxhZEdre5IqXWXw T03ceVClk0F1MUAbrIreySTs PeJptWH3lM0mVYoszordv3qk dzsn Ysten0ofyi39dC25D26dUFgk GSGcSFX2UMWiZRVwxWlkvi3q yQ0iPu7+UQtkw5hgz8hneBv4 IjIw XSOpdaCclRsvRFG3c3OiGm39 A4LrvAqwu7GyTzt8pc16tFLc d6N2mGV7CRljBZUzxV4pEAyu ZnQ6 VMRyRqCnqG41lIGkOOszNr2b yEwopHiaXJ6iAAImcgwtGGQd fB4zOMWhyUZurZfsNN7sVIHi bjtm b241PdZmUGD7WPVqwDGlK5Eo jY5vMqCzURQzBKYxR1YllXXh CUzsG548NLnoJvX2WXFlwyMu Y2Fs IBHgdXmdJjJ9c1E4Nt3Qs0Ct hbilMOS0LRbxLAIhIpE0NkRu ZrB3G7CyKoa7GQFvvBdbQH3q J3Bh DJFlkpfvqiilcOJ8EEYwGEWy lL90mZGuDWyiGr6rr5A1l175 XOPfZXFpzN47Ra2ybCfaISRk dCBU hO0yvvgkh6atdktrCgAlLXKa OCg6JGp5BDKvbAkyLgZpDMW3 OmD3VAL2jKRhgN8spGrodipx dG9w Oyc+L44bcZ0lARA7JEQ3pztz WOTwasDaII39VY96N6SnIjtt dGFibGU+VUXoscZrnKdrMK3j YmFj p0xbm3UrVSygI8RsDYHwCJte Bou7BLMhGXH2yQR6qY6uBXGm ASstg2B8mMZ9W7EwdcPynr8j b2xs HLHkUCzoN09xcVJuc4Q9XIEl dRW6VLRgxDlpSuXjkA70Kac+ URKxiNayo0XaJtewq3izk0lj dGg9 RwEqADIexfIxpCvqVCG9y0Bw Wh08E49tPWqjGZJlUAZbJKKc NLNtaWbtqx2kgJ6mOl5+PGNv bCB3 mHR9jM3fNMUrFsN2IPimS184 NpFkhBVpHdtrx4qlg5sekIo8 PrUlLHLgjaVfzHexLZS6h9Sk Lz48 Q20yDFyiITHuJZYeUHEjWJFf gOhetl0pxH3fRn7+XR5kd6ki hj06xE48dXN+IJIfZZL5cYez PSdw UXObrU8mMVlvHkY1VICmLvWa wH03jLAzWGhsEj5heAapwQwt MF9nRZKtxubnl325PzGba8ok IDEw bYYaVSulBIX2B43vw8V6RGAc QZJzMIF1bGX8iX9jfDwexuuc bGVmdDsgdmVydGljYWwtYWxp Z246 IHRvcDsnPlBhdGllbnQgTmFt TTj7H0VfIqw0HHMrkNdiER8s tGPrBEkxMi0rhQeouBraLN7q NTBp qrkmp836AcOit6fqBWZzbQMz MVysHIS6P20ti4D1ZTMzQUQh ETF4uQH0xK6raTedzvgztFEg dDsg dwFuoZdiEBciJXsyP068FTEb bEesUqTzemRtLKIymJN2UP94 YX80nWAyg2K7fXP8K3ClLJXa bmct nojrvDO3IQCpQQHneM16La9s eDxiQg7oZHTgHIP5KDKcjPNr L9LukO6aGfEbHTKfPJLdW6Ed eHQt UTftA121GJtsVqY5JSZvwpNg Z1GoVFRyjGmlFcY9o9P3Lj1E G6G6PU60ZA63wVAuk0G7zAH5 J3Bh HMNmnztibgnrzDG4IYYpIUKk eG34Wi3wzOcaRj2rWNEtVZB8 URWwcZVnM2WykX2gIwBzWWId MDAw X9XwbPNdAFwyM985LYhzDsZ3 BEWliyAtU7QwABSyzRoeGgO4 x1J4Md9CRFq6BH35RZ74qHUt c3R5 hNI8Y5AxWQRozwbklkrbjRL3 HGAxJUCptJ28Ph7usYktOj1d IINsTRF1CGRmkHClR2JaeG0l OiAj MUEaYJNsR9PkrIQmKWnbU042 XUupXsQ3QBRpxzRdB6LyWERw dVjyFsE8a9J6Wm2VCBIbVQ45 IFR5 zOZ3UR80WM20M5ElXlupqBVc bGU+PHRhYmxlIHdpZHRoPScx EFYcBoBqmRuaHS6aAh5cNOTg LWNv tGllqNGiZcCyn9thDIYkJNnn YO8nzMijJ1GwrTJ2IFUbz3h3 Rf83N07jA2EdmVD+PGNvbCB3 aWR0 xR5mWpOpUxD1EWbcO209CnBx vQDjKosbe7spu0mdnIu9OcU6 BLYvgrLbhCpmCWC7t9AhNt41 Y29s IHdpZHRoPSIxNSUiIHZhbGln av7seC2cYp0+IBTlaNM0bZE8 dV7dEuZxUrY7SZbnO697JeUv cCIv Gwtwa2hds5sncDu5WyRwEIJs qyPieQxpXYP4o6ByYb95F8Dk qQzuw6RsVjj4cu31jKYhu1A5 bGU9 C3DhTERsxiofjMOhuVdeXW4z CLZqunkcKRZuwY8sQCLoR0q5 RoKtLdU0QChuA3WikhX4KINf cHQg TDpvTQA5Y77wh2F6IFAuDNHk ABV6rRZ7eI7cgMlyfbieyNEy iNonrhIbfWkgAPzuJLqjG061 IHRv aJsdOERxvY5gPIQcdPLteRet NJ4vLNLrfjmqYprVPFVHPZNZ ZXLWNmNCMZ33UQ54wWVlz1I9 bGU9 R3YrLMKxwsewsbeuyJG8QRZw SFNjwR39gDYcBBzlOc9qz1H1 t832ZWLxQVUdfL19Wx0stDwx MTBw oIPKtZ5fkcrvn2hncxzxHsKh FGKaJUe8ICx4IOKoiAyiItKq YPU5KlX3UKS5tCFtbV4plBxn bjog yI3wKen+JKWnTAjrRRb6AKiw dGQ+ZLFlBEU1wLecVEgqYAJq vQ9jHTSiB6l2EbNcNyH2ZZhs O3Bh AKOivzqzOl27lH3qLdQgOnJ0 WAclQ5MjbuD4GTWizVNmEOrs YRW9P94ou3M7PLXvKQIgDCQ8 dGV4 rW6jyVzqfpnmaXQuqZhcqkIt bMaxSEvvYZhpZ552LKMyaMfe UlX0PBnjOZVcPF19TG53gDTs c3R5 nKG3U5CgVIGmwlbhbmiriPZ6 EVGdECXsbE73hJRrRGzlPx8v t0N9o957KRKeBBRejQ90Og0l dDog PDUwyGLBrD9gemmnp8jekryf EyMxVYVyTAn3OGw0TTPivTea PhZkKDE6KkN6EZG7rSYraU1o bGln hwrenQ3uZbk+KtJqMIguZW19 CC87qEUpg1E1aSE6K5ZmDZJc fwquooubkQK8IZRdSKTcnT81 cGFk IBndTv7eq3N9i447ISVgJWPk uY75Ma1zgIshNEAaiJUYeH1r hzrvq4lrntabCkJaQHKwNAf1 ZXh0 JKHnnWbbNaGqMBT5YkA8YPD5 xNMjwC9qnAxxzytdtC2dKpt+ SEOiAZDez4Cvm6LjXV46SD77 L3Ry PjwvdGFibGU+PHRhYmxlIHdp HLWcDNuqOCGzFsQbfNtrEB5i Rk1tTURqDTNkfEymjOUcRjEz b2xs AWIdXBehPV3nuVznF0MwyKE2 SBZmb6n8Op35T12pK4HsmZG+ XKUbkRP7jZT3yM8gLrMuSoX1 YWxp L374GnEbyHCtBrjtj4pxu1mj iWz8KnKhMDAkssJooJglEOP4 w3EcNq79G17oPXasRARnEOSr MCUi DYPsiRynyy8fmV8cUe8+PGNv uEM8lPR7lC6vBbUtBzQ4WUqj U993SfSxrJWyXniiZ39mE3Qg dXA+ OVRlZnw6IVMboXsaCW4siQBm OYhzZd3vISO9IqUkBjQxDUzk Y6GzNBYbjsgrwckisQO2GDZi MDUw pN05Xg1eiFjmZx2xPQGhVCJ6 IYLllRJlP9XbcO9aPxPfULPi GTMwD5NzcPXmTAtdQ723XGeb ZnQ7 GGOvmyNfI0TbYAXdyXpeLqI2 j7D1Ym1HkRvgoZVoGQ4sDrOn GPz2C2EcClu7MGJrnSryBE0h cGFk FKbbHr8ayKeprBhaBB5xBWFp kynwz847BaLts5xvVEFiwGKq KClnLCG5F27jj8T9YQClCSYp MDA7 yKO1sT0klAbrtguerLCumRrn fkShaVrgAIooSPfjD532OYTf hQogPiOXLoz0N9CrCyh0WTAe dHls AY5fnOEuSXysWa3gaTdbrXtg ZF0sOQHyncpuh805QiKir2fe WISigZFsTXwjYME0I16qy9R1 ICMw JKMmNAR7wPD6fA2rzFrlqakx bGVmdDsgdmVydGljYWwtYWxp C343KZNqtIrnQd3FHuv3D1Cs Pjx0 RENdzWrmFY3cqWYiKKqzWo8z yYoxgBkbQW2wYSRfovnnn377 OwLaz7lnGCNaoUEnAThyAZB0 Y29s x6Q4JWBkWKVdKFZ3cDA6oF0f bGlnbjogbGVmdDsgdmVydGlj MKqlKPjtJ005KKVpjRdxAxJd eWVy OjwvdGQ+ZM27ly09V5OpWqkp Kcc3HILvBRW0eCM3cP0oFFXf KGxsv7Q6kFV8O2PzrwCbrh7o b2xs YXBz (more content not included)... Normal [facility] General Surgery Office/Clini c Noteon 11-20-2022 General [...] inactivated - Not Given Patient Refuses Normal [facility] Comment on above: Result Comment: Elec tronically Signed By: GADIEL CASTILLO, Benjamin Escobedo\Date and Time Signed: 11/20/22 14:57 EST Physician Referralon 022 Physician Referral [id number]: 127 Normal [facility] INSULINon 10-08-2022 Insulin 18.6 uIU/mL Normal 2.6-24.9 [facility] Comment on above: Performed By: #### P TT, PT #### [facility] [address] [address] [address] Beatrice Arellano LIPID PROFILE SEND OUTon Cholesterol [Mass/Vol] 445 mg/dL Critically high 100-199 [facility] Comment on above: Performed By: #### C MPLC, LIPIDLC, THYPRLC #### [facility] [address] [address] [address] Beatrice Arellano Cholesterol in HDL [Mass/Vol] 18 mg/dL Critically low >39 [facility] Comment on above: Performed By: #### C MPLC, LIPIDLC, THYPRLC #### [facility] [address] [address] [address] Beatrice Arellano Comment: Normal [facility] Comment on above: Performed By: #### C MPLC, LIPIDLC, THYPRLC #### [facility] [address] [address] [address] Beatrice Arellano LDL Chol. Calc. (NIH) Comment Abnormal 0-99 [facility] Comment on above: Result Comment: Trig lyceride result indicated is too high for an accurate LDL cholesterol estimation. Performed By: #### C MPLC, LIPIDLC, THYPRLC #### [facility] [address] [address] [address] Beatrice Arellano Triglyceride [Mass/Vol] 3146 mg/dL Invalid Interpretation Code 0-149 [facility] Comment on above: Result Comment: Resu lts confirmed on dilution. Performed By: #### C MPLC, LIPIDLC, THYPRLC #### [facility] [address] [address] [address] Beatrice Arellano VLDL Cholesterol, Calc Comment Abnormal 5-40 [facility] Comment on above: Result Comment: The calculation for the VLDL cholesterol is not valid when triglyceride level is >800 mg/dL. Performed By: #### C MPLC, LIPIDLC, THYPRLC #### [facility] [address] [address] [address] Beatrice Arellano PROF 14(COMP METB) SEND OUTo n 10-08-2022 Albumin [Mass/Vol] 3.9 g/dL Normal 3.9-5.0 [facility] Comment on above: Result Comment: Spec imen received lipemic. Value may be decreased by lipemia. Clinical correlation indicated. Performed By: #### C MPLC, LIPIDLC, THYPRLC #### [facility] [address] [address] [address] Beatrice Arellano Albumin/Globulin [Mass ratio] 1.6 {ratio} Normal 1.2-2.2 [facility] Comment on above: Performed By: #### C MPLC, LIPIDLC, THYPRLC #### [facility] [address] [address] [address] Beatrice Arellano ALP [Catalytic activity/Vol] 68 U/L Normal 44-121 [facility] Comment on above: Performed By: #### C MPLC, LIPIDLC, THYPRLC #### [facility] [address] [address] [address] Beatrice Arellano ALT [Catalytic activity/Vol] 29 U/L Normal 0-32 [facility] Comment on above: Performed By: #### C MPLC, LIPIDLC, THYPRLC #### [facility] [address] [address] [address] Beatrice Arellano AST [Catalytic activity/Vol] 34 U/L Normal 0-40 [facility] Comment on above: Performed By: #### C MPLC, LIPIDLC, THYPRLC #### [facility] [address] [address] [address] Beatrice Arellano Bilirubin [Mass/Vol] mg/dL Normal 0.0-1.2 [facility] Comment on above: Performed By: #### C MPLC, LIPIDLC, THYPRLC #### [facility] [address] [address] [address] Beatrice Arellano Calcium [Mass/Vol] 8.5 mg/dL Critically low 8.7-10.2 [facility] Comment on above: Performed By: #### C MPLC, LIPIDLC, THYPRLC #### [facility] [address] [address] [address] Beatrice Arellano Chloride [Moles/Vol] 99 mmol/L Normal 96-106 [facility] Comment on above: Performed By: #### C MPLC, LIPIDLC, THYPRLC #### [facility] [address] [place] [address] Dr. Beatrice Arelalno CO2 [Moles/Vol] 20 mmol/L Normal 20-29 [facility] Comment on above: Performed By: #### C MPLC, LIPIDLC, THYPRLC #### [facility] [address] [place] [address] Dr. Beatrice Arellano Creatinine [Mass/Vol] 0.59 mg/dL Normal 0.57-1.00 [facility] Comment on above: Performed By: #### C MPLC, LIPIDLC, THYPRLC #### [facility] [address] [place] [address] Dr. Beatrice Arellano GFR/1.73 sq M.predicted among non-blacks MDRD (S/P/Bld) [Vol rate/Area] 126 mL/min/{1.73_m2} Normal >59 [facility] Comment on above: Performed By: #### C MPLC, LIPIDLC, THYPRLC #### [facility] [address] [place] [address] Dr. Beatrice Arellano Globulin (S) [Mass/Vol] 2.5 g/dL Normal 1.5-4.5 [facility] Comment on above: Performed By: #### C MPLC, LIPIDLC, THYPRLC #### [facility] [address] [address] [address] Beatrice Arellano Glucose [Mass/Vol] 85 mg/dL Normal 70-99 [facility] Comment on above: Performed By: #### C MPLC, LIPIDLC, THYPRLC #### [facility] [address] [address] [address] Beatrice Arellano Potassium [Moles/Vol] 3.9 mmol/L Normal 3.5-5.2 [facility] Comment on above: Performed By: #### C MPLC, LIPIDLC, THYPRLC #### [facility] [address] [place] [address] Dr. Beatrice Arellano Protein [Mass/Vol] 6.4 g/dL Normal 6.0-8.5 [facility] Comment on above: Performed By: #### C MPLC, LIPIDLC, THYPRLC #### [facility] [address] [address] [address] Beatrice Arellano Sodium [Moles/Vol] 135 mmol/L Normal 134-144 [facility] Comment on above: Performed By: #### C MPLC, LIPIDLC, THYPRLC #### [facility] [address] [place] [address] Dr. Beatrice Arellano Urea nitrogen [Mass/Vol] 8 mg/dL Normal 6-20 [facility] Comment on above: Performed By: #### C MPLC, LIPIDLC, THYPRLC #### [facility] [address] [place] [address] Dr. Beatrice Arellano Urea nitrogen/Creatinine [Mass ratio] 14 mg/mg Normal 9-23 [facility] Comment on above: Performed By: #### C MPLC, LIPIDLC, THYPRLC #### [facility] [address] [place] [address] Dr. Beatrice Arellano THYROID PROFILE WITH TSHon 1 12-08-2021 Free Thyroxine Index 1.3 Normal 1.2-4.9 [facility] Comment on above: Performed By: #### C MPLC, LIPIDLC, THYPRLC #### [facility] [address] [address] [address] Beatrice Arellano T3 Uptake 21 % Critically low 24-39 [facility] Comment on above: Performed By: #### C MPLC, LIPIDLC, THYPRLC #### [facility] [address] [address] [address] Beatrice Arellano T4 [Mass/Vol] 6.2 ug/dL Normal 4.5-12.0 [facility] Comment on above: Performed By: #### C MPLC, LIPIDLC, THYPRLC #### [facility] [address] [place] [address] Dr. Beatrice Arellano TSH 1.580 uIU/mL Normal 0.450-4.500 [facility] Comment on above: Performed By: #### C MPLC, LIPIDLC, THYPRLC #### [facility] [address] [place] [address] Dr. Beatrice Arellano CBC AUTO DIFFon 10-07-2022 BASO # 0.1 103/ul Normal 0.0-0.1 [facility] Comment on above: Performed By: #### C BC #### [facility] [address] [place] [address] Dr. Beatrice Arellano Basophils/100 WBC (Bld) 1.2 % Normal 0.2-2.0 [facility] Comment on above: Performed By: #### C BC #### [facility] [address] [place] [address] Dr. Beatrice Arellano EO # 0.5 103/ul Normal 0.0-0.7 [facility] Comment on above: Performed By: #### C BC #### [facility] [address] [place] [address] Dr. Beatrice Arellano Eosinophils/100 WBC (Bld) 11.5 % Critically high 0.9-7.0 [facility] Comment on above: Performed By: #### C BC #### [facility] [address] [place] [address] Dr. Beatrice Arellano Erythrocyte distribution width (RBC) [Ratio] 12.1 % Normal 11.0-15.0 [facility] Comment on above: Performed By: #### C BC #### [facility] [address] [place] [address] Dr. Beatrice Arellano Hematocrit (Bld) [Volume fraction] 37.0 % Normal 36.0-48.0 [facility] Comment on above: Performed By: #### C BC #### [facility] [address] [place] [address] Dr. Beatrice Arellano Hemoglobin (Bld) [Mass/Vol] 14.2 g/dL Normal 12.0-16.0 [facility] Comment on above: Performed By: #### C BC #### [facility] [address] [place] [address] Dr. Beatrice Arellano IG # 0.04 10e3/ul Critically high 0.00-0.03 [facility] Comment on above: Performed By: #### C BC #### [facility] [address] [place] [address] Dr. Beatrice Arellano IG % 0.9 % Critically high 0.0-0.5 [facility] Comment on above: Performed By: #### C BC #### [facility] [address] [place] [address] Dr. Beatrice Arellano LYMPH # 1.6 103/ul Normal 1.2-3.8 [facility] Comment on above: Performed By: #### C BC #### [facility] [address] [place] [address] Dr. Beatrice Arellano Lymphocytes/100 WBC (Bld) 36.5 % Normal 20.5-60.0 [facility] Comment on above: Performed By: #### C BC #### [facility] [address] [place] [address] Dr. Beatrice Arellano MANUAL DIFF REQ NO Normal [facility] Comment on above: Performed By: #### C BC #### [facility] [address] [place] [address] Dr. Beatrice Arellano MCH (RBC) [Entitic mass] 35.8 pg Critically high 26.7-34.0 [facility] Comment on above: Performed By: #### C BC #### [facility] [address] [address] [address] Beatirce Arellano MCHC (RBC) [Mass/Vol] 38.4 g/dL Critically high 29.9-35.2 [facility] Comment on above: Performed By: #### C BC #### [facility] [address] [address] [address] Beatrice Arellano MCV (RBC) [Entitic vol] 93.2 fL Normal 81.0-99.0 [facility] Comment on above: Performed By: #### C BC #### [facility] [address] [address] [address] Beatrice Arellano MONO # 0.5 103/ul Normal 0.3-0.8 [facility] Comment on above: Performed By: #### C BC #### [facility] [address] [place] [address] Dr. Beatrice Arellano Monocytes/100 WBC (Bld) 11.5 % Normal 1.7-12.0 [facility] Comment on above: Performed By: #### C BC #### [facility] [address] [place] [address] Dr. Beatrice Arellano NEUT # 1.6 103/ul Normal 1.4-6.5 [facility] Comment on above: Performed By: #### C BC #### [facility] [address] [place] [address] Dr. Beatrice Arellano Neutrophils/100 WBC (Bld) 38.4 % Critically low 43.0-75.0 [facility] Comment on above: Performed By: #### C BC #### [facility] [address] [address] [address] Beatrice Arellano Platelet mean volume (Bld) [Entitic vol] 9.7 fL Normal 9.5-13.5 [facility] Comment on above: Performed By: #### C BC #### [facility] [address] [place] [address] Dr. Beatrice Arellano PLT 227 103/ul Normal 150-450 [facility] Comment on above: Performed By: #### C BC #### [facility] [address] [place] [address] Dr. Beatrice Arellano RBC 3.97 106/ul Critically low 4.20-5.40 [facility] Comment on above: Performed By: #### C BC #### [facility] [address] [place] [address] Dr. Beatrice Arellano WBC 4.3 103/ul Normal 4.0-11.0 [facility] Comment on above: Performed By: #### C BC #### [facility] [address] [place] [address] Dr. Beatrice Arellano GLYCOHEMOGLOBIN A1Con 2021 ADA RECOMMENDATION SEE BELOW Normal [facility] Comment on above: Result Comment: ADA RECOMMENDED LIMIT 4.0 - 6.0 [facility] THERAPEUTIC TARGET < 7.0 ACTION SUGGESTED > 7.0 Performed By: #### P TT, PT #### [facility] [address] [place] [address] Dr. Beatrice Arellano Glucose [Mass/Vol] 97 mg/dL Normal [facility] Comment on above: Performed By: #### P TT, PT #### [facility] [address] [place] [address] Dr. Beatrice Arellano HbA1c (Bld) [Mass fraction] 5.0 % Normal 4.5-6.2 [facility] Comment on above: Performed By: #### P TT, PT #### [facility] [address] [place] [address] Dr. Beatrice Arellano IRONon 10-07-2022 Iron [Mass/Vol] 57.0 ug/dL Normal 50.0-170.0 [facility] Comment on above: Performed By: #### P TT, PT #### [facility] [address] [place] [address] Dr. Beatrice Arellano XR LSPINE MIN 4 [...] GABRIELLA WOO Date: 2022-10-07 13:13 Normal [facility] CBC AUTO DIFFon 03-24-2022 BASO # 0.1 103/ul Normal 0.0-0.1 [facility] Comment on above: Performed By: #### C BC #### [facility] [address] [address] [address] Beatrice Arellano Basophils/100 WBC (Bld) 1.0 % Normal 0.2-2.0 [facility] Comment on above: Performed By: #### C BC #### [facility] [address] [place] [address] Dr. Beatrice Arellano EO # 0.6 103/ul Normal 0.0-0.7 [facility] Comment on above: Performed By: #### C BC #### [facility] [address] [place] [address] Dr. Beatrice Arellano Eosinophils/100 WBC (Bld) 8.0 % Critically high 0.9-7.0 [facility] Comment on above: Performed By: #### C BC #### [facility] [address] [place] [address] Dr. Beatrice Arellano Erythrocyte distribution width (RBC) [Ratio] 11.8 % Normal 11.0-15.0 [facility] Comment on above: Performed By: #### C BC #### [facility] [address] [place] [address] Dr. Beatrice Arellano Hematocrit (Bld) [Volume fraction] 38.4 % Normal 36.0-48.0 [facility] Comment on above: Performed By: #### C BC #### [facility] [address] [place] [address] Dr. Beatrice Arellano Hemoglobin (Bld) [Mass/Vol] 13.2 g/dL Normal 12.0-16.0 [facility] Comment on above: Performed By: #### C BC #### [facility] [address] [place] [address] Dr. Beatrice Arellano IG # 0.03 10e3/ul Normal 0.00-0.03 [facility] Comment on above: Performed By: #### C BC #### [facility] [address] [place] [address] Dr. Beatrice Arellano IG % 0.4 % Normal 0.0-0.5 [facility] Comment on above: Performed By: #### C BC #### [facility] [address] [place] [address] Dr. Beatrice Arellano LYMPH # 2.0 103/ul Normal 1.2-3.8 [facility] Comment on above: Performed By: #### C BC #### [facility] [address] [place] [address] Dr. Beatrice Arellano Lymphocytes/100 WBC (Bld) 27.0 % Normal 20.5-60.0 [facility] Comment on above: Performed By: #### C BC #### [facility] [address] [place] [address] Dr. Beatrice Arellano MANUAL DIFF REQ NO Normal [facility] Comment on above: Performed By: #### C BC #### [facility] [address] [place] [address] Dr. Beatrice Arellano MCH (RBC) [Entitic mass] 33.4 pg Normal 26.7-34.0 [facility] Comment on above: Performed By: #### C BC #### [facility] [address] [place] [address] Dr. Beatrice Arellano MCHC (RBC) [Mass/Vol] 34.4 g/dL Normal 29.9-35.2 [facility] Comment on above: Performed By: #### C BC #### [facility] [address] [place] [address] Dr. Beatrice Arellano MCV (RBC) [Entitic vol] 97.2 fL Normal 81.0-99.0 [facility] Comment on above: Performed By: #### C BC #### [facility] [address] [place] [address] Dr. Beatrice Arellano MONO # 0.5 103/ul Normal 0.3-0.8 [facility] Comment on above: Performed By: #### C BC #### [facility] [address] [place] [address] Dr. Beatrice Arellano Monocytes/100 WBC (Bld) 6.5 % Normal 1.7-12.0 [facility] Comment on above: Performed By: #### C BC #### [facility] [address] [place] [address] Dr. Beatrice Arellano NEUT # 4.2 103/ul Normal 1.4-6.5 [facility] Comment on above: Performed By: #### C BC #### [facility] [address] [place] [address] Dr. Beatrice Arellano Neutrophils/100 WBC (Bld) 57.1 % Normal 43.0-75.0 [facility] Comment on above: Performed By: #### C BC #### [facility] [address] [place] [address] Dr. Beatrice Arellano Platelet mean volume (Bld) [Entitic vol] 9.8 fL Normal 9.5-13.5 [facility] Comment on above: Performed By: #### C BC #### [facility] [address] [place] [address] Dr. Beatrice Arellano PLT 223 103/ul Normal 150-450 [facility] Comment on above: Performed By: #### C BC #### [facility] [address] [place] [address] Dr. Beatrice Arellano RBC 3.95 106/ul Critically low 4.20-5.40 [facility] Comment on above: Performed By: #### C BC #### [facility] [address] [place] [address] Dr. Beatrice Arellano WBC 7.3 103/ul Normal 4.0-11.0 [facility] Comment on above: Performed By: #### C BC #### [facility] [address] [place] [address] Dr. Beatrice Arellano FERRITINon 03-24-2022 Ferritin [Mass/Vol] 58.0 ng/mL Normal 6.2-137.0 [facility] Comment on above: Performed By: #### T SH, PREGQNT #### [facility] [address] [place] [address] Dr. Beatrice Arellano PREG QUANT HCGon 03-24-2022 HCG QUANT 1 mIU/mL Normal [facility] Comment on above: Performed By: #### T SH, PREGQNT #### [facility] [address] [place] [address] Dr. Beatrice Arellano HCG RANGE SEE BELOW Normal [facility] Comment on above: Result Comment: 5-50 0-1 WEEK 40-300 1-2 WEEKS 100-1,000 2-3 WEEKS 500-6,000 3-4 WEEKS 5,000-200,000 1-2 MONTHS 10,000-100,000 2-3 MONTHS 3,000-50,000 2ND TRIMESTER 1,000-50,000 3RD TRIMESTER Performed By: #### T SH, PREGQNT #### [facility] [address] [place] [address] Dr. Beatrice Arellano PROTIMEon 03-24-2022 INR Coag (PPP) [Relative time] 0.95 {INR} Normal [facility] Comment on above: Performed By: #### P TT, PT #### [facility] [address] [place] [address] Dr. Beatrice Arellano INR GUIDELINES SEE BELOW Normal [facility] Comment on above: Result Comment: EDILBERTO RED INR: 2.0 - 3.0 CONDITIONS NOT LISTED BELOW 2.5 - 3.5 FOR PROSTHETIC HEART VALVE REPLACEMENT 2.5 - 3.5 RECURRENT THROMBOSIS Performed By: #### P TT, PT #### [facility] [address] [place] [address] Dr. Beatrice Arellano PT Coag (PPP) [Time] 10.3 s Normal 9.0-11.6 [facility] Comment on above: Performed By: #### P TT, PT #### [facility] [address] [place] [address] Dr. Beatrice Arellano PTTon 03-24-2022 aPTT Coag (Bld) [Time] 25.9 s Normal 22.3-36.2 [facility] Comment on above: Performed By: #### P TT, PT #### [facility] [address] [address] [address] Beatrice Arellano TSHon 03-24-2022 TSH 1.574 uIU/mL Normal 0.470-4.680 [facility] Comment on above: Performed By: #### T SH, PREGQNT #### [facility] [address] [address] [address] Beatrice Arellano TSH RANGE SEE BELOW Normal [facility] Comment on above: Result Comment: <0.3 4 UIU/ml HYPERTHYROID 0.34-5.60 UIU/ml EUTHYROID >5.60 UIU/ml HYPOTHYROID Performed By: #### T SH, PREGQNT #### [facility] [address] [address] [address] Beatrice Arellano US PELVIS AND TRANSVAGon [...] by: GABRIELLA WOO Date: 2022-03-24 12:00 Normal [facility] COVID-19 Positive/Negativeon 01-15-2021 COVID-19 Positive/Negative Negative Negative [facility] Comment on above: Testing for SARS-CoV -2 by RT-PCRThis test was developed and its performance characteristics determined by [employer] and validated at the [facility]. This test has not been FDA [...] Otheron 01-15-2021 Coronavirus 2019 PCR Interp N/A [facility] Vital Signs Date Time Vital Sign Value Performing Clinician Danniellei mikhail 09-10-2023 12:48-0400 Blood Pressure Location [employer] [facility] 09-10-2023 12:48-0400 Diastolic blood pressure 79 mm[Hg] [employer] [facility] 09-10-2023 12:48-0400 Heart rate 91 /min [employer] [facility] 09-10-2023 12:48-0400 Respiratory rate 16 /min [employer] [facility] 09-10-2023 12:48-0400 Systolic blood pressure 136 mm[Hg] [employer] [facility] Encounters Encounter Date Encounter Type Care Provider Facility Start: 11-11-2023 End: 11-11-2023 ambulatory CHIRAG WEIR Not Available Start: 09-10-2023 End: 09-11-2023 ambulatory Jasmin Parrish Facility:[facility] Start: 09-10-2023 End: 09-10-2023 Patient encounter procedure Benjamin R NILL [facility] Start: 02-18-2023 End: 02-18-[address] CHIRAG WEIR . Facility:[facility] Start: 02-09-2023 End: 02-10-[address] JASMIN PARRISH . Facility:[facility] Start: 12-29-2022 End: 12-29-[address] JASMIN PARRISH . Facility:[facility] Start: 12-24-2022 End: 12-24-[address] DEVON RICHARDSON Facility: Start: 12-02-2022 End: 12-03-2022 ambulatory Benjamin R NILL Facility:[facility] Start: 12-02-2022 End: 12-02-2022 Patient encounter procedure Benjamin R NILL [facility] Start: 11-20-2022 End: 11-21-2022 ambulatory Benjamin R NILL [facility] Start: 11-20-2022 End: 11-21-2022 ambulatory Benjamin R NILL Facility:[facility] Start: 11-20-2022 End: 11-20-2022 Lab Drop off Benjamin R NILL [facility] Start: 11-20-2022 End: 11-20-2022 Patient encounter procedure Benjamin R NILL [facility] Start: 10-28-2022 End: 10-29-2022 ambulatory Benjamin R NILL Facility:[facility] Start: 10-10-2022 Encounter for genera l adult medical examination without abnormal findings DR JASMIN PARRISH . [facility] Start: 10-10-2022 ambulatory Jasmin Parrish Facility:[facility] Start: 10-10-2022 ambulatory Jasmin Parrish Facility:[facility] Start: 10-07-2022 End: 10-08-[address] JASMIN PARRISH . Facility:[facility] Start: 10-07-2022 End: 10-08-2022 Encounter for general adult medical examination without abnormal findings DR JASMIN PARRISH . Facility:[facility] Start: 03-24-2022 End: 03-25-[address] CHIRAG WEIR . Facility:[facility] Start: 01-15-2021 End: 01-15-2021 Patient encounter procedure Jasmin Parrish -Pre-Surgical Testing Procedures Date Procedure Procedure Detail Performing Clinician section Benjamin NIL L Cholecystectomy Benjamin NILL Colposcopy Benjamin NILL Esophagogastroduodenoscopy Amelia ichael NILL Excisional biopsy Benjamin NI LL Comment on above: scalp x 2 Immunizations Immunization Date Immunization Notes Care Provider Fa cility 11-01-2022 SARS-CoV-2 (COVID-19 ) [id number] Benjamin NILL [facility] 10-25-2021 SARS-CoV-2 (COVID-19 ) mRNA BNT-162b2 vax Benjamin NILL [facility] 03-20-2021 SARS-CoV-2 (COVID-19 ) mRNA BNT-162b2 vax Benjamin NILL [facility] Comment on above: Result Comment: 2022: TPVALL 02-27-2021 SARS-CoV-2 (COVID-19 ) mRNA BNT-162b2 vax Benjamin NILL [facility] Comment on above: Result Comment: 2022: TPVALL NEGATED: Highlighted row has not occurred!09-10-2023 influenza virus vaccine, unspecified formulation Benjamin RAMESH [facility] [place] NEGATED: Highlighted row has not occurred!10-28-2022 influenza virus vaccine, unspecified formulation Benjamin RAMESH [facility] Payers Date Payer Category Payer Unknown [id number] 2.16.84 [id number] 1994 Unknown [id number] 2.16.84 [id number] 1994 Unknown [id number] 2.16.84 [id number] 1994 Unknown [id number] 2.16.84 [id number] 1994 Unknown [id number] 2.16.84 [id number] 1994 Unknown [id number] 2.16.84 [id number] 1994 Unknown [id number] 2.16.8 [id number] 1994 Unknown [id number] 2.16.8 [id number] 1994 Unknown [id number] 2.16.8 [id number] 1994 Unknown [id number] 2.16.8 [id number] 1994 Unknown [id number] 2.16.8 [id number] 1994 Unknown [id number] 2.16.8 [id number] 1994 Unknown [id number] 1959 Unknown [id number] 1959 Unknown [id number] Self-pay Self Pay [id number] Social History Date Type Detail Facility Tobacco smoking stat [facility] Unknown if ever smoked [facility] Start: 1994 Sex Assigned At Female F [facility] Start: 10-28-2022 Tobacco smoking status Ex-smoker (fi nding) [facility] Tobacco smoking status Former sm okeless tobacco user, quit more than 30 days ago [facility] Sex Assigned At Female [facility] Goals Date Patient Goal Desired Activity /State Functional Status Date Assessment Result Facility 09-10-2023 Functional Status N/A [facility] Clinical Note 09-10-2023 Note Date & Type [...] QID, # 120 tab(s), Refills(s) 3, Pharmacy: [facility]/pharmacy #[id number], 157.4, cm, 09/10/23 12:54:00 EDT, Height/Length Dosing, 76.6, kg, 09/10/23 12:54:00 EDT, Weight Dosing 2. Duodenogastric bile reflux (K21.9: Gastro-esophageal reflux disease without esophagitis) see # 1 Ordered: sucralfate, 1 gm = 1 tab(s), Oral, QID, # 120 tab(s), Refills(s) 3, Pharmacy: [facility]/pharmacy #[id number], 157.4, cm, 09/10/23 12:54:00 EDT, Height/Length Dosing, 76.6, kg, 09/10/23 12:54:00 EDT, Weight Dosing Follow-up No qualifying data available Problem List/Past Medical History Ongoing ADHD Asthma BMI 30.0-30.9,adult Chronic cystitis Dependent edema Depression Duodenogastric bile reflux Dysuria Epigastric pain (more content not included)... [facility] Comment on above: Result Comment: Elec tronically [...] vaccine, inactivated - Not Given Patient Refuses [facility] Comment on above: Result Comment: Elec tronically Signed By: Benjamin RAMESH MD\Date and Time Signed: 10/28/22 08:47 EST Evaluation + Plan note Note Date & Type Note Facility Evaluation + Plan note No data available for this section [facility] Discharge instructions Note Date & Type Note Facility Hospital Discharge instructions No data available for this section [facility] [place] Progress note Note Date & Type Note Facility Progress note No data available for this section [facility] [place] Advance Directives No Advanced Directives Records Found [...] Personnel Name: Jasmin Parrish MD Address: Address: [address] [place] [address] Personnel Name: Jasmin Parrish MD Address: Address: [address] [place] [address] Personnel Name: Jasmin Parrish MD Address: Address: [address] [place] [address] Personnel Name: Jasmin Parrish MD Address: Address: [address] [place] [address] INFORMATION SOURCE (unrecogn ized section and content) DATE CREATED AUTHOR 11/21/2022 [facility] DATE CREATED AUTHOR AUTHOR'S ORGANIZ ATION 02/28/2023 [facility] DATE CREATED AUTHOR AUTHOR'S ORGANIZ ATION 09/12/2023 [facility] DATE CREATED AUTHOR AUTHOR'S ORGANIZ ATION 11/12/2023 [facility] FOR RECORDS PERTAINING TO PATIENTS WHO ARE [...] BE BASED ON THE PRIMARY CLINICAL RECORDS. [facility] [employer] for iPhone and Android [facility]. provides no warranty or guarantee of the accuracy or completeness of information in this document.
[2024-02-11 13:35] LABS: Free T3 2.53 pg/mL (2.18-3.98); Thyroid Stimulating Hormone 0.659 uIU/mL (0.358-3.740)
== END 2024-02-11 10:16 | disposition home or self-care (01) ==
LOC: LAB 10:17
PROVIDERS: PCP Family Medicine; Visit Provider Family Medicine
DX: E03.9 Hypothyroidism, unspecified (principal)
CPT/HCPCS: 36415; 84436; 84443; 84481

== ENCOUNTER 2024-04-13 21:28 | Outpatient (REF) | payer BC, SELFPAY ==
--- OUTSIDE RECORDS SUMMARY | 2024-04-13 21:33 | XMS_ITS | CCD ---
Author Organization [facility] Care Team Providers Care Line Dancer Name Role Phone Jasmin Parrish Primary Care Provider [phone] Kaushik Richardson Attending Provider [phone] Jasmin Parrish Primary Care Physician Benjamin RAMESH Attending [...] Unavailable ZIEBER, DR GABRIELLA Velazco Consulting Unavailable TinoyJasmin Referring Unavailable NILL, Benjamin R Attending Unavailable NILL, Benjamin R Attending Unavailable NILL, Benjamin R Attending Unavailable NILL, Benjamin R Attending Unavailable HoyJasmin Referring Unavailable NILL, Benjamin Velazco Attending Unavailable NILL, Benjamin R Admitting Unavailable [...] QID, # 120 tab(s), Refills(s) 3, Pharmacy: [facility]/pharmacy #[id number], 157.4, cm, 09/10/23 12:54:00 EDT, Height/Length Dosing, [...] Duodenogastric bile reflux Refills: 3 Pickup at [facility]/pharmacy #[id number] Unchanged albuterol (Ventolin HFA 90 mcg/ inh [...] physician if questions or concerns Pharmacy Information [facility]/pharmacy #[id number]: [address] [place], [place] [id number] [phone] Medications and Immunizations Administered Not Given influenza [...] for. Neoplasm of uncertain behavior of skin [facility] Consultation Noteon 08-31-20 23 Consultation Note [id number] F [facility] Physician Referralon 023 Physician Referral [id number] F [facility] PAP ACOG PANEL 2: 20 to 28on 02-26-2023 . . [facility] Comment on above: Performed By: #### P TT, PT #### [facility] [address] [place], [place] [address] Dr. Beatrice Arellano Age Gdln ACOG Testing - [facility] Comment on above: Performed By: #### P TT, PT #### [facility] [address] [place], [place] [address] Dr. Beatrice Arellano DIAGNOSIS: Comment [facility] Comment on above: Result Comment: NEGA TIVE FOR INTRAEPITHELIAL LESION OR MALIGNANCY. Performed By: #### P TT, PT #### [facility] [address] [place] [address] [address] Beatrice Arellano Methodology: Comment Normal [facility] Comment on above: Result Comment: This liquid based ThinPrep(R) pap test was screened with the use of an image guided system. Performed By: #### P TT, PT #### [facility] [address] [place] [address] [address] Beatrice Arellano Note: Comment Normal [facility] Comment on above: Result Comment: The Pap smear is a screening test designed to aid in the detection of premalignant and malignant conditions of the uterine cervix. It is not a diagnostic procedure and should not be used as the sole means of detecting cervical cancer. Both false-positive and false-negative reports do occur. . Performed By: #### P TT, PT #### [facility] [address] [place] [address] Dr. Beatrice Arellano Performed by: Comment Normal [facility] Comment on above: Result Comment: Charles Whiting, Fertilizer Loader (ASCP) Performed By: #### P TT, PT #### [facility] [address] [place] [address] Dr. Beatrice Arellano Reflex Criteria: Comment Normal [facility] [place] Comment on above: Result Comment: The HPV DNA reflex criteria were not met with this specimen result therefore, no HPV testing was performed. . Performed By: #### P TT, PT #### [facility] [address] [place] [address] Dr. Beatrice Arellano Specimen adequacy: Comment Normal [facility] Comment on above: Result Comment: Sati sfactory for evaluation. Endocervical and/or squamous metaplastic cells (endocervical component) are present. Performed By: #### P TT, PT #### [facility] [address] [place] [address] Dr. Beatrice Arellano LIPID PROFILEon 02-09-2023 CHOL-HDL RATIO NORM SEE BELOW Normal [facility] Comment on above: Result Comment: 3.3 - 4.4 LOW RISK 4.4 - 7.1 AVERAGE RISK 7.1 - 11.0 MODERATE RISK >11.0 HIGH RISK Performed By: #### P TT, PT #### [facility] [address] [place] [address] Dr. Beatrice Arellano Cholesterol [Mass/Vol] 160 mg/dL Normal <=[address] [facility] Comment on above: Performed By: #### P TT, PT #### [facility] [address] [place] [address] [address] Beatrice Arellano Cholesterol in HDL [Mass/Vol] 50 mg/dL Normal 40-[address] [facility] Comment on above: Performed By: #### P TT, PT #### [facility] [address] [place] [address] Dr. Beatrice Arellano Cholesterol in LDL [Mass/Vol] 94.6 mg/dL Normal [facility] Comment on above: Performed By: #### P TT, PT #### [facility] [address] [place] [address] Dr. Beatrice Arellano Cholesterol.total/C holesterol in HDL [Mass ratio] 3.2 {ratio} Normal [facility] Comment on above: Performed By: #### P TT, PT #### [facility] [address] [place] [address] Dr. Beatrice Arellano HDL NORMAL > or = 60 mg/dl - LO W CARDIOVASCULAR RISK <40 mg/dl - HIGH CARDIOVASCULAR RISK Normal [facility] Comment on above: Performed By: #### P TT, PT #### [facility] [address] [place] [address] Dr. Beatrice Arellano LDL CALC NORMAL SEE BELOW Normal [facility] Comment on above: Result Comment: <100 mg/dl OPTIMAL 100 - 129 mg/dl NEAR OR ABOVE OPTIMAL 130 - 159 mg/dl BORDERLINE HIGH 160 - 189 mg/dl HIGH >190 mg/dl VERY HIGH Performed By: #### P TT, PT #### [facility] [address] [place] [address] Dr. Beatrice Arellano Triglyceride [Mass/Vol] 77 mg/dL Normal <=[address] [facility] Comment on above: Performed By: #### P TT, PT #### [facility] [address] [place] [address] Dr. Beatrice Arellano VLDL CALC 15.4 mg/dL Normal [facility] Comment on above: Performed By: #### P TT, PT #### [facility] [address] [place] [address] Dr. Beatrice Arellano LIVER PROFILEon 02-09-2023 Albumin [Mass/Vol] 3.7 g/dL Normal 3.4-5.0 [facility] Comment on above: Performed By: #### P TT, PT #### [facility] [address] [place] [address] Dr. Beatrice Arellano Albumin/Globulin [Mass ratio] 1.1 {ratio} Normal [facility] Comment on above: Performed By: #### P TT, PT #### [facility] [address] [place] [address] Dr. Beatrice Arellano ALP [Catalytic activity/Vol] 66 U/L Normal 46-[address] [facility] Comment on above: Performed By: #### P TT, PT #### [facility] [address] [place] [address] Dr. Beatrice Arellano ALT [Catalytic activity/Vol] 19 U/L Normal 14-[address] [facility] Comment on above: Performed By: #### P TT, PT #### [facility] [address] [place] [address] Dr. Beatrice Arellano AST [Catalytic activity/Vol] 15 U/L Normal 15-[address] [facility] Comment on above: Performed By: #### P TT, PT #### [facility] [address] [place] [address] Dr. Beatrice Arellano BILI, CONJUGATED 0.1 mg/dL Normal 0.0-0.2 [facility] [place] Comment on above: Performed By: #### P TT, PT #### [facility] [address] [place] [address] Dr. Beatrice Arellano Bilirubin [Mass/Vol] 0.4 mg/dL Normal 0.2-1.[address] [facility] Comment on above: Performed By: #### P TT, PT #### [facility] [address] [place] [address] [address] Beatrice Arellano Globulin (S) [Mass/Vol] 3.4 g/dL Normal [facility] Comment on above: Performed By: #### P TT, PT #### [facility] [address] [place] [id number] [address] Beatrice Arellano Protein [Mass/Vol] 7.1 g/dL Normal 6.4-8.2 [facility] Comment on above: Performed By: #### P TT, PT #### [facility] [address] [place] [address] [address] Beatrice Arellano Covid-19 PCR ([facility])on SARS-CoV-2 (COVID-19) RNA AISHA+probe Ql (Unsp spec) Not detected Normal NOT DETECTED [facility] Comment on above: Result Comment: When [...] for this test is supported by the General Teller of Health and Human Service's declaration that [...] Performed By: #### P TT, PT #### [facility] [address] [place], [place] [id number] Dr. Beatrice Arellano INFLUENZA A AND B AGon 12-29 INFLUANEGH SEE BELOW Normal [facility] Comment on above: Result Comment: Nega tive for Flu A protein angiten. Infection due to Flu A cannot be ruled out. Flu A angiten in the sample may be below the detection limit of the test. Performed By: #### I NFLUAB #### [facility] [address] [place] [address] Dr. Beatrice Arellano [facility] SEE BELOW Normal [facility] Comment on above: Result Comment: Nega tive for Flu B protein antigen. Infection due to Flu B cannot be ruled out. Flu B antigen in the sample may be below the detection limit of the test. Performed By: #### I NFLUAB #### [facility] [address] [place] [address] Dr. Beatrice Arellano INFLUENZA A AG Negative Normal NEGATIVE SEE COMMENT [facility] Comment on above: Performed By: #### I NFLUAB #### [facility] [address] [place] [address] Dr. Beatrice Arellano INFLUENZA B AG Negative Normal NEGATIVE SEE COMMENT [facility] Comment on above: Performed By: #### I NFLUAB #### [facility] [address] [place] [address] Dr. Beatrice Arellano ER URINE PROFILEon 3 Bilirubin Ql (U) SMALL Abnormal NEGATIVE [facility] [place] Comment on above: Performed By: #### T SH, PREGQNT #### [facility] [address] [place] [address] Dr. Beatrice Arellano Clarity (U) CLEAR Normal CLEAR [facility] Comment on above: Performed By: #### T SH, PREGQNT #### [facility] [address] [place] [address] Dr. Beatrice Arellano Color (U) YELLOW Normal YELLOW [facility] Comment on above: Performed By: #### T SH, PREGQNT #### [facility] [address] [place] [address] Dr. Beatrice Arellano ERUAHD A micrscopic examina tion will be performed if indicated. Normal [facility] Comment on above: Performed By: #### T SH, PREGQNT #### [facility] [address] [place] [address] Dr. Beatrice Arellano Glucose Ql (U) Negative Normal NEGATIVE [facility] Comment on above: Performed By: #### T SH, PREGQNT #### [facility] [address] [place] [address] Dr. Beatrice Arellano Hemoglobin Ql (U) Negative Normal NEGATIVE [facility] Comment on above: Performed By: #### T SH, PREGQNT #### [facility] [address] [place] [address] Dr. Beatrice Arellano Ketones Ql (U) 15 mg/dl Abnormal NEGATIVE [facility] Comment on above: Performed By: #### T SH, PREGQNT #### [facility] [address] [place] [address] Dr. Beatrice Arellano LEUKOCYTES Negative Normal NEGATIVE [facility] Comment on above: Performed By: #### T SH, PREGQNT #### [facility] [address] [place] [address] Dr. Beatrice Arellano Nitrite Ql (U) Negative Normal NEGATIVE [facility] Comment on above: Performed By: #### T SH, PREGQNT #### [facility] [address] [place] [address] Dr. Beatrice Arellano pH (U) 5.5 [pH] Normal 5-[address] [facility] Comment on above: Performed By: #### T SH, PREGQNT #### [facility] [address] [place] [address] Dr. Beatrice Arellano SPEC GRAVITY 1.025 Normal 1.005-<=1.[address] [facility] Comment on above: Performed By: #### T SH, PREGQNT #### [facility] [address] [place] [address] Dr. Beatrice Arellano UA PROTEIN Negative Normal NEGATIVE/ TRACE [facility] Comment on above: Performed By: #### T SH, PREGQNT #### [facility] [address] [place] [address] Dr. Beatrice Arellano UR MICRO IND NOT INDICATED Normal [facility] Comment on above: Performed By: #### T SH, PREGQNT #### [facility] [address] [place] [address] Dr. Beatrice Arellano Urobilinogen Qn (U) 0.2 {Elana'U}/dL Normal 0.2 - 1. [address] [facility] Comment on above: Performed By: #### T SH, PREGQNT #### [facility] [address] [place] [address] Dr. Beatrice Arellano URon 12-24-2022 , QUAL Negative Normal NEGATIVE [facility] Comment on above: Performed By: #### T SH, PREGQNT #### [facility] [address] [place] [address] Dr. Beatrice Arellano PROF CHEM 8 (BAS METB)on Anion gap [Moles/Vol] 14.2 mmol/L Normal [facility] Comment on above: Performed By: #### P TT, PT #### [facility] [address] [place] [address] Dr. Beatrice Arellano Calcium [Mass/Vol] 8.8 mg/dL Normal 8.5-10.1 [facility] Comment on above: Performed By: #### P TT, PT #### [facility] [address] [place] [address] Dr. Beatrice Arellano Chloride [Moles/Vol] 102 mmol/L Normal 98-[address] [facility] Comment on above: Performed By: #### P TT, PT #### [facility] [address] [place] [address] Dr. Beatrice Arellano CO2 [Moles/Vol] 24.6 mmol/L Normal 21.0-32.0 [facility] Comment on above: Performed By: #### P TT, PT #### [facility] [address] [place] [address] Dr. Beatrice Arellano Creatinine [Mass/Vol] 0.67 mg/dL Normal 0.55-1.[address] [facility] Comment on above: Performed By: #### P TT, PT #### [facility] [address] [place] [address] Dr. Beatrice Arellano EGFR-AF PARAGUAYAN >60 Normal >=60 [facility] Comment on above: Performed By: #### P TT, PT #### [facility] [address] [place] [address] Dr. Beatrice Arellano EGFR-NON AF PARAGUAYAN >60 Normal >=[address] [facility] Comment on above: Performed By: #### P TT, PT #### [facility] [address] [place] [address] [address] Beatrice Arellano Glucose [Mass/Vol] 106 mg/dL Normal 74-106 [facility] Comment on above: Performed By: #### P TT, PT #### [facility] [address] [place] [address] [address] Beatrice Arellano Potassium [Moles/Vol] 3.8 mmol/L Normal 3.5-5.[address] [facility] Comment on above: Performed By: #### P TT, PT #### [facility] [address] [place] [address] [address] Beatrice Arellano Sodium [Moles/Vol] 137 mmol/L Normal 136-145 [facility] Comment on above: Performed By: #### P TT, PT #### [facility] [address] [place] [address] [address] Beatrice Arellano Urea nitrogen [Mass/Vol] 14.0 mg/dL Normal 7.0-18.[address] [facility] Comment on above: Performed By: #### P TT, PT #### [facility] [address] [place] [address] [address] Beatrice Arellano Urea nitrogen/Creatinine [Mass ratio] 20.9 mg/mg Normal [facility] Comment on above: Performed By: #### P TT, PT #### [facility] [address] [place] [address] Dr. Beatrice Arellano General Surgery Office/Clini c [...] - Not Given Patient Refuses Normal [facility] Comment on above: Result Comment: Elec tronically Signed By: GADIEL CASTILLO, Benjamin Escobedo\Date and Time Signed: 12/02/22 10:23 EST Coding Summary.on 11-26-2022 Coding Summary. [id number] Gh0b Ww+PGhlYWQ+XX4EXXJsH34zn JNgnG9ME9pZXY6GNUQRWFGKU B4SBC5wsVP2CZviZ9MuigBe FktpcDZcSQ09WMt2MIU0qOkh AIihhZ2szORdY0f1OmKnSF12 xX04SItgQNBjSiX0XfXjnnay bWFy T1vnLgFeqOInWgv+PHRhYmxl IHdpZHRoPScxMDAlJyBzdHls BV8qCj8pKVNkSSFuuZqnvBXw OiBj j7rvZPWgUTleEM8vaMcdU9Pp sJJ7FKDcv6r4Aq19tEM+PHRk ZRR3vAptPHfse628UcFbd2uy IDM3 uSZeJRooUDH7L62ez2J6IYAn YTGrRKC6lKL6gR5whWvcscts G0YhzCOtOjU2DOU4mEPizG5k bGln tfsxwG7tAdd+C84AYY6HMQVZ AH3YBqg5B3KlQhysqFE+PC90 NPDuJT62wQGgcBDes4ctrNj8 JzEw KMWhTYS7qAlaHRdih5JtARPg G76pwOCjl7W4LRAyxJglzJRw ZsAssTY5qL5eXPubimxkj7rp dzsn Rtudw6jhxx65jA82P23xJWzo ZUYxAYS7SPVvZBFjbJozjq9k uY3eSs4+LTwnh9wsu4pamPo8 IjIw NRHcchNouDwwPAF3q5BfVg62 W4NsdQpgw9CgAob2bp24bDGz i4N0qYF4BVceRZTlvI5aNSgh ZnQ6 QCYiCaOcnU88iENjWLqaRi4w xAmwuPsvQU6cOLWdsxmgOKDw uF2wJVTfeVWmaWwoEG0lVSCx bjtm r068CjGuLUA4GDZudBHdY5Tv kF2vEsTuZVJjOGYrB9VnpCWa IZngP454CKxuZuC8URTilsAv Y2Fs IBMfuQbjCfL3k3J5Ew8Dl3Co nwtiLFQ5YShjHAAvFdI0TnOg YsE6S6PpDvl2HUCquXxkJO2g J3Bh BTQocmczwmfjjSZ3GTDeXHIw gF67rVIyIEneSi3qy9O9m278 WMMwRDSxzQ05Hn5rfEowQVCh dCBU lD9gwwoah5nduhaoZqGnEVYj GIt4IIv4QQOqrMmuPdAcWGI9 TeJ8QMO2bQKnfG7nnRlxjhmc dG9w Oyc+A20tnE7zYCS8DKA0dhnl NWKzcjJpPQ88HZ00Q2AxXkvg dGFibGU+KMCyxzYsnRxgQS0r YmFj u5vbd2AnLHprG0ItKRLaHRfe Ckj6NIXwVRZ3cBI1sE2sCHPs MWsmp0R9rOF5W4BoicJsow1f b2xs RUGjUYhmB48itVFuj2Y0LDCp nRC1FQNxoFasQaLssP51Gpr+ HSWkhZbqt4AuTfnsd2mrg4kg dGg9 OiBqUPYamtBujDaqFAY5k1Tn Nb42A14fVSzzKRSnSOXiRSNg SYRqyXxhkr8zvU0sAf8+PGNv bCB3 yIZ4tN1aXPYlHoS1TQmrA278 ReMbqHIkYigjm3mqa2vfhQc7 ShZfUNFdmtNmtHwuJAO9o4Qz Lz48 W85aFDqdUKLoNHMnIOWxDDBj nWrgbj0gcB6iMr2+EX8do1gg ul59uD95uXU+PXMjEBQ8lZbs PSdw UAUdrN2oHZwkLoE6MTMuUqOl lZ82yNRnMJhsHs2tgIhlrMnd MB0qFMOubiote892MaDnd2aq IDEw pPMmXNjxLAB3H26rc6F7KSPz MEMfPMX8eOL5oL4hkJcrszml bGVmdDsgdmVydGljYWwtYWxp Z246 IHRvcDsnPlBhdGllbnQgTmFt CQx3Y3HqMxa5ZVWjpIhwIG7t qTOqPIbrMy2avRvglDzaXN9g NTBp sadcw661CcUwx4meMZDpgNBx VKjuXTO4T51lr1N2VFExNCGc WQP1eTA5dT6lgEcnnifwmXLm dDsg bwPclWwcAVgeCLkaT800LRFi hYjeNbAefcVvDHKhmCA5KU49 WR63gYUuz2C5oGO8Q3YmRPVu bmct tboasPM0XXByBDHdnI63Ll6k kVozOl6pYBOmFPN8LRJibHDa H3QrjF2dOfQjBNMkCTTyC8Pj eHQt YFstJ384BScsIiW1CPZbcaQh A7YvVSSenAtaZkN5d2H9Ef3W C2A4NR72GN65pUSwf7V2tVZ0 J3Bh JBVwgeqqjofdyMC3VXHhJMAe gZ16Wf9ruVseEi4kYSJaRAZ3 DYVfdZGrP1JkaW3pQqBiCPOj MDAw K7HxeDPsOCmcY274BNgjKjD4 DDJtjxAcF8QhMEMdhWvfYwT1 y1L0Ai9JCTv9DS98YG40cNZp c3R5 bLM5Y5AwFEAzzfsegdafgYJ9 QHCcSUDgmL30Zc6xhQhkBw6u RYUlVGP6JVUxgLIyL6SbvL9m OiAj TSGbAVSzR9GygIGlKUojK988 NAtwLcO1WVSiuhQcP4OyZJLi aRnxXaT4b8D4Wi9NMZJfQF36 IFR5 aKQ0WS08ZM03P3KrIjabeSKb bGU+PHRhYmxlIHdpZHRoPScx NLEvSgSoeUsmIX2iNr3aCIPy LWNv rNhitYJaNqTbb7mtRAPgEOqs TU2ogVtxJ5GztXO4ODZtu6a3 Ik25W31gQ4XmvHF+PGNvbCB3 aWR0 xU2gYvFbHuQ2QLnvR728UbHp fCDbOdltx3irz2alhAb5DiH2 NFHeenBwtByzRMR9i8ScDd22 Y29s IHdpZHRoPSIxNSUiIHZhbGln gb0cpX2wCw2+DXBfdEH1zMC9 hM7gMtFrWvC4MDrwL334CiDi cCIv Wquub3jvq6sjbIf7GqLlGWXo qgRnhQaqEUI7h9NtAu54S0Hj sDhev0SvRnt9ax37qQCkd9E0 bGU9 G4ViJDKwfytnrNUpnOeqGB8m VKUnjoatUWIvrP5pVUPjI1g3 LdHcMwT3YAitW4SqstL6FKAm cHQg XGauUUS5X88kb3E8UCGiTIFn CKN3cXC1jM8gwJvzygezvPCu sRlicqCqnKotBBcqGUmtH455 IHRv vRzvMMSldD9bNDQknKKsxKlp QU7wSUPcnshqMyfZTYXTXNJS ZTYITnNNDT78MD28yFSvk1R1 bGU9 V3GwNHTyaefuhnhmdJG2GLDg TCEoeK35zDUuUNvtHv4wp4Z1 a073UFPwAHGdfQ99Dt0azDim MTBw cMRCyD5gkqloi4dubgphOuZh VYLtWGe4ARp7WHVcyMboZcOs JGH4CmT7CTD0pTKfzQ9tnVln bjog aO7dSdq+UIDqHYicLVd7JUkw dGQ+RYEbEGR2fRbwAZheJQFy iB5dBXEjQ8t0PkZtCuF0GDzy O3Bh UAUoniozWx07oV2zZrZwTyS8 OOfkX2CgbhF8DQIjlIJyIMvq MKY5J57hn9B3SIEoYIVzIRI0 dGV4 jZ2bjIqkutlzpZMgqHweglWd rZtoCLbtFNzqC548NDOyaBag NiS0NWfdXEAuSM47CI52mUPf c3R5 dVL8E5EdVEYjvgzktjgmsGD5 CUJmWYJooD74nVPiTHvyJa7a u3T0e046ABWvPHZcyF02Hf2i dDog NIMkrJMKlD0fvomny0shorja VgJbJPJdGSo4LDj1NOAsdZye HvEdSWQ9UoD7RZH3vBYbxB3x bGln mdrkfI4jYkd+QlJzAFvvIA58 RV25fWJbz6V8wXU9F1FtCIKo sdqymrqtbMY3WCCyWNDqvM89 cGFk QBnrYz8mz8T7t962QNYxEIBc hX74Aa6vkXkmAWYpgWKZaX1n dqkrz8ehissyWrJmMUZzGNa7 ZXh0 TXRrvPhnOaDrLGP1VjJ4WCU6 yMSqqZ1hlDeqogdaiM0mZcf+ LUZvJAJwq5Mrr7HfIJ93WW09 L3Ry PjwvdGFibGU+PHRhYmxlIHdp IXFnWViiTINmSnVvvYmwEP8q Ac2lAGBhGNClqWxpwZWqEgLv b2xs KGSxIZvjKF9cmJdnA2GjrNW9 NEJxo7y5Xv70Q32gY0LlvGR+ THVmjHE9pZX4oE7lNiMvLiW5 YWxp G212MzMqdLPgChnaf6idn7gn nZt4TzZtWXEhulHbvZrtRFM1 q8QzKr24P78mHLfaDILlALTv MCUi OMMtuNvghd8iaV6bDe6+PGNv yRA3cML4fZ3iWrDuOfM3LGjv W096LoUsmCHvIntyF60pR6Cc dXA+ OWOzFvz3MXZjzQjjEB4bqYHi SLmcIt4jHFL6PsXoInVkALqe G4DmORNgxkayqazwsXN3PFWd MDUw dQ37Tp4huLhyRl0dLLCgZVJ6 MWEszBDiI8UieJ8zZzSmTYFm MGIlP4CmnCOoEUdyG999XGof ZnQ7 CSPkkrDyW3RvMNYleRffSoQ6 z5F1Hv9NwEpeuUZhDV4oMsTh TBn3T7MjQxi4XKVemTxnJZ2u cGFk HMbjDl3fuJadyMyuXE5dVQKw pwkpu671PsEte7obUGIomOUp HOzxQJS5W35mb0P1ROWaPSLr MDA7 lRM8oO7kwEsfrizxzHQdgIvz oxLckWluIPgmJTygU876JXYq tRtqEnGEEck5Q4IhHua4GXTf dHls TE6zgJLnWIntVt3enDhnhKno UV1pZDYcmpdjp536XeXuy5fe YZGmrVWkOZxyEZT1X45ob0R8 ICMw KQJgIEZ7uOQ8aI0epLhuyusz bGVmdDsgdmVydGljYWwtYWxp I423FXHenQjnSc6DKum0U9Bu Pjx0 YZUrbQqhCV8jmAGzENbcVu6z fOvekHazMW7oFNZvomrki186 LvVcr4ckYCTjoZOkISdpIOS7 Y29s c7W9IWVxSJGuQFT7kTA4mH1m bGlnbjogbGVmdDsgdmVydGlj KTcqBHmwT657TIQyfDhgKhCy eWVy OjwvdGQ+XQ59oj68L1TdHunv Yvr4BRPoTCZ4aLD0sQ2rAPRe PMyeb6M3jHT6H9PgsoUapo2e b2xs YXBz (more content not included)... Normal [facility] General Surgery Office/Clini c Noteon 11-20-2022 General [...] inactivated - Not Given Patient Refuses Normal [facility] Comment on above: Result Comment: Elec tronically Signed By: GADIEL CASTILLO, Benjamin Escobedo\Date and Time Signed: 11/20/22 14:57 EST Physician Referralon 022 Physician Referral [phone] [id number] [id number]: 127 Normal [facility] INSULINon 10-08-2022 Insulin 18.6 uIU/mL Normal 2.6-24.[address] [facility] Comment on above: Performed By: #### P TT, PT #### [facility] [address] [address] [address] Beatrice Arellano LIPID PROFILE SEND OUTon Cholesterol [Mass/Vol] 445 mg/dL Critically high 100-[address] [facility] Comment on above: Performed By: #### C MPLC, LIPIDLC, THYPRLC #### [facility] [address] [address] [address] Beatrice Arellano Cholesterol in HDL [Mass/Vol] 18 mg/dL Critically low >[address] [facility] Comment on above: Performed By: #### C MPLC, LIPIDLC, THYPRLC #### [facility] [address] [address] [address] Beatrice Arellano Comment: Normal [facility] Comment on above: Performed By: #### C MPLC, LIPIDLC, THYPRLC #### [facility] [address] [address] [address] Beatrice Arellano LDL Chol. Calc. ([facility]) Comment Abnormal 0-[address] [facility] Comment on above: Result Comment: Trig lyceride result indicated is too high for an accurate LDL cholesterol estimation. Performed By: #### C MPLC, LIPIDLC, THYPRLC #### [facility] [address] [address] [address] Beatrice Arellano Triglyceride [Mass/Vol] 3146 mg/dL Invalid Interpretation Code 0-[address] [facility] Comment on above: Result Comment: Resu lts confirmed on dilution. Performed By: #### C MPLC, LIPIDLC, THYPRLC #### [facility] [address] [address] [address] Beatrice Arellano VLDL Cholesterol, Calc Comment Abnormal 5-[address] [facility] Comment on above: Result Comment: The calculation for the VLDL cholesterol is not valid when triglyceride level is >800 mg/dL. Performed By: #### C MPLC, LIPIDLC, THYPRLC #### [facility] [address] [address] [address] Beatrice Arellano PROF 14(COMP METB) SEND OUTo n 10-08-2022 Albumin [Mass/Vol] 3.9 g/dL Normal 3.9-5.0 [facility] Comment on above: Result Comment: Spec imen received lipemic. Value may be decreased by lipemia. Clinical correlation indicated. Performed By: #### C MPLC, LIPIDLC, THYPRLC #### [address] [facility] [address] [address] [address] Beatrice Arellano Albumin/Globulin [Mass ratio] 1.6 {ratio} Normal 1.2-2.[address] [facility] Comment on above: Performed By: #### C MPLC, LIPIDLC, THYPRLC #### [facility] [address] [place] [address] Dr. Beatrice Arellano ALP [Catalytic activity/Vol] 68 U/L Normal 44-[address] [facility] Comment on above: Performed By: #### C MPLC, LIPIDLC, THYPRLC #### [facility] [address] [address] [address] Beatrice Arellano ALT [Catalytic activity/Vol] 29 U/L Normal 0-[address] [facility] Comment on above: Performed By: #### C MPLC, LIPIDLC, THYPRLC #### [facility] [address] [address] [address] Beatrice Arellano AST [Catalytic activity/Vol] 34 U/L Normal 0-[address] [facility] Comment on above: Performed By: #### C MPLC, LIPIDLC, THYPRLC #### [facility] [address] [place] [address] Dr. Beatrice Arellano Bilirubin [Mass/Vol] mg/dL Normal 0.0-1.[address] [facility] Comment on above: Performed By: #### C MPLC, LIPIDLC, THYPRLC #### [facility] [address] [place] [address] Dr. Beatrice Arellano Calcium [Mass/Vol] 8.5 mg/dL Critically low 8.7-10.2 [facility] Comment on above: Performed By: #### C MPLC, LIPIDLC, THYPRLC #### [facility] [address] [address] [address] Beatrice Arellano Chloride [Moles/Vol] 99 mmol/L Normal 96-[address] [facility] Comment on above: Performed By: #### C MPLC, LIPIDLC, THYPRLC #### [facility] [address] [place] [address] Dr. Beatrice Arellano CO2 [Moles/Vol] 20 mmol/L Normal 20-29 [facility] Comment on above: Performed By: #### C MPLC, LIPIDLC, THYPRLC #### [facility] [address] [place] [address] Dr. Beatrice Arellano Creatinine [Mass/Vol] 0.59 mg/dL Normal 0.57-1.[address] [facility] Comment on above: Performed By: #### C MPLC, LIPIDLC, THYPRLC #### [facility] [address] [place] [address] Dr. Beatrice Arellano GFR/1.73 sq M.predicted among non-blacks MDRD (S/P/Bld) [Vol rate/Area] 126 mL/min/{1.73_m2} Normal >59 [facility] Comment on above: Performed By: #### C MPLC, LIPIDLC, THYPRLC #### [facility] [address] [place] [address] Dr. Beatrice Arellano Globulin (S) [Mass/Vol] 2.5 g/dL Normal 1.5-4.[address] [facility] Comment on above: Performed By: #### C MPLC, LIPIDLC, THYPRLC #### [facility] [address] [address] [address] Beatrice Arellano Glucose [Mass/Vol] 85 mg/dL Normal 70-99 [facility] Comment on above: Performed By: #### C MPLC, LIPIDLC, THYPRLC #### [facility] [address] [address] [address] Beatrice Arellano Potassium [Moles/Vol] 3.9 mmol/L Normal 3.5-5.[address] [facility] Comment on above: Performed By: #### C MPLC, LIPIDLC, THYPRLC #### [facility] [address] [place] [address] Dr. Beatrice Arellano Protein [Mass/Vol] 6.4 g/dL Normal 6.0-8.5 [facility] Comment on above: Performed By: #### C MPLC, LIPIDLC, THYPRLC #### [facility] [address] [place] [address] Dr. Beatrice Arellano Sodium [Moles/Vol] 135 mmol/L Normal 134-144 [facility] Comment on above: Performed By: #### C MPLC, LIPIDLC, THYPRLC #### [facility] [address] [place] [address] Dr. Beatrice Arellano Urea nitrogen [Mass/Vol] 8 mg/dL Normal 6-[address] [facility] Comment on above: Performed By: #### C MPLC, LIPIDLC, THYPRLC #### [facility] [address] [place] [address] Dr. Beatrice Arellano Urea nitrogen/Creatinine [Mass ratio] 14 mg/mg Normal 9-[address] [facility] Comment on above: Performed By: #### C MPLC, LIPIDLC, THYPRLC #### [facility] [address] [place] [address] Dr. Beatrice Arellano THYROID PROFILE WITH TSHon 1 12-08-2021 Free Thyroxine Index 1.3 Normal 1.2-4.[address] [facility] Comment on above: Performed By: #### C MPLC, LIPIDLC, THYPRLC #### [facility] [address] [address] [address] Beatrice Arellano T3 Uptake 21 % Critically low 24-39 [facility] Comment on above: Performed By: #### C MPLC, LIPIDLC, THYPRLC #### [facility] [address] [place] [address] Dr. Beatrice Arellano T4 [Mass/Vol] 6.2 ug/dL Normal 4.5-12.0 [facility] Comment on above: Performed By: #### C MPLC, LIPIDLC, THYPRLC #### [facility] [address] [place] [address] Dr. Beatrice Arellano TSH 1.580 uIU/mL Normal 0.450-4.500 [facility] Comment on above: Performed By: #### C MPLC, LIPIDLC, THYPRLC #### [facility] [address] [place] [address] Dr. Beatrice Arellano CBC AUTO DIFFon 10-07-2022 BASO # 0.1 103/ul Normal 0.0-0.[address] [facility] Comment on above: Performed By: #### C BC #### [facility] [address] [place] [address] Dr. Beatrice Arellano Basophils/100 WBC (Bld) 1.2 % Normal 0.2-2.[address] [facility] Comment on above: Performed By: #### C BC #### [facility] [address] [place] [address] Dr. Beatrice Arellano EO # 0.5 103/ul Normal 0.0-0.[address] [facility] Comment on above: Performed By: #### C BC #### [facility] [address] [place] [address] Dr. Beatrice Arellano Eosinophils/100 WBC (Bld) 11.5 % Critically high 0.9-7.[address] [facility] Comment on above: Performed By: #### C BC #### [facility] [address] [place] [address] Dr. Beatrice Arellano Erythrocyte distribution width (RBC) [Ratio] 12.1 % Normal 11.0-15.[address] [facility] Comment on above: Performed By: #### C BC #### [facility] [address] [place] [address] Dr. Beatrice Arellano Hematocrit (Bld) [Volume fraction] 37.0 % Normal 36.0-48.[address] [facility] Comment on above: Performed By: #### C BC #### [facility] [address] [place] [address] Dr. Beatrice Arellano Hemoglobin (Bld) [Mass/Vol] 14.2 g/dL Normal 12.0-16.[address] [facility] Comment on above: Performed By: #### C BC #### [facility] [address] [place] [address] Dr. Beatrice Arellano IG # 0.04 10e3/ul Critically high 0.00-0.03 [facility] Comment on above: Performed By: #### C BC #### [facility] [address] [place] [address] Dr. Beatrice Arellano IG % 0.9 % Critically high 0.0-0.5 [facility] Comment on above: Performed By: #### C BC #### [facility] [address] [place] [address] Dr. Beatrice Arellano LYMPH # 1.6 103/ul Normal 1.2-3.[address] [facility] Comment on above: Performed By: #### C BC #### [facility] [address] [place] [address] Dr. Beatrice Arellano Lymphocytes/100 WBC (Bld) 36.5 % Normal 20.5-60.[address] [facility] Comment on above: Performed By: #### C BC #### [facility] [address] [place] [address] Dr. Beatrice Arellano MANUAL DIFF REQ NO Normal [facility] Comment on above: Performed By: #### C BC #### [facility] [address] [place] [address] Dr. Beatrice Arellano MCH (RBC) [Entitic mass] 35.8 pg Critically high 26.7-34.0 [facility] Comment on above: Performed By: #### C BC #### [facility] [address] [address] [address] Beatrice Arellano MCHC (RBC) [Mass/Vol] 38.4 g/dL Critically high 29.9-35.[address] [facility] Comment on above: Performed By: #### C BC #### [facility] [address] [address] [address] Beatrice Arellano MCV (RBC) [Entitic vol] 93.2 fL Normal 81.0-99.[address] [facility] Comment on above: Performed By: #### C BC #### [facility] [address] [place] [address] Dr. Beatrice Arellano MONO # 0.5 103/ul Normal 0.3-0.[address] [facility] Comment on above: Performed By: #### C BC #### [facility] [address] [place] [address] Dr. Beatrice Arellano Monocytes/100 WBC (Bld) 11.5 % Normal 1.7-12.[address] [facility] Comment on above: Performed By: #### C BC #### [facility] [address] [place] [address] Dr. Beatrice Arellano NEUT # 1.6 103/ul Normal 1.4-6.[address] [facility] Comment on above: Performed By: #### C BC #### [facility] [address] [place] [address] Dr. Beatrice Arellano Neutrophils/100 WBC (Bld) 38.4 % Critically low 43.0-75.[address] [facility] Comment on above: Performed By: #### C BC #### [facility] [address] [place] [address] Dr. Beatrice Arellano Platelet mean volume (Bld) [Entitic vol] 9.7 fL Normal 9.5-13.[address] [facility] Comment on above: Performed By: #### C BC #### [facility] [address] [place] [address] Dr. Beatrice Arellano PLT 227 103/ul Normal 150-[address] [facility] Comment on above: Performed By: #### C BC #### [facility] [address] [address] [address] Beatrice Arellano RBC 3.97 106/ul Critically low 4.20-5.40 [facility] Comment on above: Performed By: #### C BC #### [facility] [address] [place] [address] Dr. Beatrice Arellano WBC 4.3 103/ul Normal 4.0-11.[address] [facility] Comment on above: Performed By: #### C BC #### [facility] [address] [place] [address] Dr. Beatrice Arellano GLYCOHEMOGLOBIN A1Con 2021 ADA RECOMMENDATION SEE BELOW Normal [facility] Comment on above: Result Comment: ADA RECOMMENDED LIMIT 4.0 - 6.0 ADA THERAPEUTIC TARGET < 7.0 ACTION SUGGESTED > 7.0 Performed By: #### P TT, PT #### [facility] [address] [place] [address] Dr. Beatrice Arellano Glucose [Mass/Vol] 97 mg/dL Normal [facility] Comment on above: Performed By: #### P TT, PT #### [facility] [address] [place] [address] Dr. Beatrice Arellano HbA1c (Bld) [Mass fraction] 5.0 % Normal 4.5-6.[address] [facility] Comment on above: Performed By: #### P TT, PT #### [facility] [address] [place] [address] Dr. Beatrice Arellano IRONon 10-07-2022 Iron [Mass/Vol] 57.0 ug/dL Normal 50.0-170.0 [facility] Comment on above: Performed By: #### P TT, PT #### [facility] [address] [place] [address] Dr. Beatrice Arellano XR LSPINE MIN 4 [...] GABRIELLA WOO Date: 2022-10-07 13:[address] [facility] CBC AUTO DIFFon 03-24-2022 BASO # 0.1 103/ul Normal 0.0-0.[address] [facility] Comment on above: Performed By: #### C BC #### [facility] [address] [address] [address] Beatrice Arellano Basophils/100 WBC (Bld) 1.0 % Normal 0.2-2.[address] [facility] Comment on above: Performed By: #### C BC #### [facility] [address] [address] [address] Beatrice Arellano EO # 0.6 103/ul Normal 0.0-0.[address] [facility] Comment on above: Performed By: #### C BC #### [facility] [address] [address] [address] Beatrice Arellano Eosinophils/100 WBC (Bld) 8.0 % Critically high 0.9-7.[address] [facility] Comment on above: Performed By: #### C BC #### [facility] [address] [address] [address] Beatrice Arellano Erythrocyte distribution width (RBC) [Ratio] 11.8 % Normal 11.0-15.[address] [facility] Comment on above: Performed By: #### C BC #### [facility] [address] [address] [address] Beatrice Arellano Hematocrit (Bld) [Volume fraction] 38.4 % Normal 36.0-48.[address] [facility] Comment on above: Performed By: #### C BC #### [facility] [address] [address] [address] Beatrice Arellano Hemoglobin (Bld) [Mass/Vol] 13.2 g/dL Normal 12.0-16.[address] [facility] Comment on above: Performed By: #### C BC #### [facility] [address] [place] [address] Dr. Beatrice Arellano IG # 0.03 10e3/ul Normal 0.00-0.[address] [facility] Comment on above: Performed By: #### C BC #### [facility] [address] [place] [address] Dr. Beatrice Arellano IG % 0.4 % Normal 0.0-0.[address] [facility] Comment on above: Performed By: #### C BC #### [facility] [address] [place] [address] Dr. Beatrice Arellano LYMPH # 2.0 103/ul Normal 1.2-3.[address] [facility] Comment on above: Performed By: #### C BC #### [facility] [address] [place] [address] Dr. Beatrice Arellano Lymphocytes/100 WBC (Bld) 27.0 % Normal 20.5-60.[address] [facility] Comment on above: Performed By: #### C BC #### [facility] [address] [place] [address] Dr. Beatrice Arellano MANUAL DIFF REQ NO Normal [facility] Comment on above: Performed By: #### C BC #### [facility] [address] [place] [address] Dr. Beatrice Arellano MCH (RBC) [Entitic mass] 33.4 pg Normal 26.7-34.[address] [facility] Comment on above: Performed By: #### C BC #### [facility] [address] [place] [address] Dr. Beatrice Arellano MCHC (RBC) [Mass/Vol] 34.4 g/dL Normal 29.9-35.[address] [facility] Comment on above: Performed By: #### C BC #### [facility] [address] [place] [address] Dr. Beatrice Arellano MCV (RBC) [Entitic vol] 97.2 fL Normal 81.0-99.[address] [facility] Comment on above: Performed By: #### C BC #### [facility] [address] [place] [address] Dr. Beatrice Arellano MONO # 0.5 103/ul Normal 0.3-0.[address] [facility] Comment on above: Performed By: #### C BC #### [facility] [address] [address] [address] Beatrice Arellano Monocytes/100 WBC (Bld) 6.5 % Normal 1.7-12.[address] [facility] Comment on above: Performed By: #### C BC #### [facility] [address] [place] [address] Dr. Beatrice Arellano NEUT # 4.2 103/ul Normal 1.4-6.[address] [facility] Comment on above: Performed By: #### C BC #### [facility] [address] [place] [address] Dr. Beatrice Arellano Neutrophils/100 WBC (Bld) 57.1 % Normal 43.0-75.[address] [facility] Comment on above: Performed By: #### C BC #### [facility] [address] [place] [address] Dr. Beatrice Arellano Platelet mean volume (Bld) [Entitic vol] 9.8 fL Normal 9.5-13.[address] [facility] Comment on above: Performed By: #### C BC #### [facility] [address] [place] [address] Dr. Beatrice Arellano PLT 223 103/ul Normal 150-[address] [facility] Comment on above: Performed By: #### C BC #### [facility] [address] [place] [address] Dr. Beatrice Arellano RBC 3.95 106/ul Critically low 4.20-5.40 [facility] Comment on above: Performed By: #### C BC #### [facility] [address] [place] [address] Dr. Beatrice Arellano WBC 7.3 103/ul Normal 4.0-11.[address] [facility] Comment on above: Performed By: #### C BC #### [facility] [address] [place] [address] Dr. Beatrice Arellano FERRITINon 03-24-2022 Ferritin [Mass/Vol] 58.0 ng/mL Normal 6.2-137.0 [facility] Comment on above: Performed By: #### T AGUILA, PREGQNT #### [facility] [address] [place] [address] Dr. Beatrice Arellano PREG QUANT HCGon 03-24-2022 HCG QUANT 1 mIU/mL Normal [facility] Comment on above: Performed By: #### T SH, PREGQNT #### [facility] [address] [place] [address] Dr. Beatrice Arellano HCG RANGE SEE BELOW Normal [facility] Comment on above: Result Comment: 5-50 0-1 WEEK 40-300 1-2 WEEKS 100-1,000 2-3 WEEKS 500-6,000 3-4 WEEKS 5,000-200,000 1-2 MONTHS 10,000-100,000 2-3 MONTHS 3,000-50,000 2ND TRIMESTER 1,000-50,000 3RD TRIMESTER Performed By: #### T SH, PREGQNT #### [facility] [address] [place] [address] Dr. Beatrice Arellano PROTIMEon 03-24-2022 INR Coag (PPP) [Relative time] 0.95 {INR} Normal [facility] Comment on above: Performed By: #### P TT, PT #### [facility] [address] [place] [address] Dr. Beatrice Arellano INR GUIDELINES SEE BELOW Normal [facility] Comment on above: Result Comment: EDILBERTO RED INR: 2.0 - 3.0 CONDITIONS NOT LISTED BELOW 2.5 - 3.5 FOR PROSTHETIC HEART VALVE REPLACEMENT 2.5 - 3.5 RECURRENT THROMBOSIS Performed By: #### P TT, PT #### [facility] [address] [place] [address] Dr. Beatrice Arellano PT Coag (PPP) [Time] 10.3 s Normal 9.0-11.[address] [facility] Comment on above: Performed By: #### P TT, PT #### [facility] [address] [place] [address] Dr. Beatrice Arellano PTTon 03-24-2022 aPTT Coag (Bld) [Time] 25.9 s Normal 22.3-36.[address] [facility] Comment on above: Performed By: #### P TT, PT #### [facility] [address] [place], [place] [address] Dr. Beatrice Arellano TSHon 03-24-2022 TSH 1.574 uIU/mL Normal 0.470-4.680 [facility] Comment on above: Performed By: #### T SH, PREGQNT #### [facility] [address] [place], [place] [address] Dr. Beatrice Arellano TSH RANGE SEE BELOW Normal [facility] Comment on above: Result Comment: <0.3 4 UIU/ml HYPERTHYROID 0.34-5.60 UIU/ml EUTHYROID >5.60 UIU/ml HYPOTHYROID Performed By: #### T SH, PREGQNT #### [facility] [address] [place] [address] Dr. Beatrice Arellano US PELVIS AND TRANSVAGon [...] GABRIELLA WOO Date: 2022-03-24 12:[address] [facility] COVID-19 Positive/Negativeon 01-15-2021 COVID-19 Positive/Negative Negative Negative [facility] Comment on above: Testing for SARS-CoV -2 by RT-PCRThis test was developed and its performance characteristics determined by [employer] and validated at the [facility]. This test has not been FDA [...] Otheron 01-15-2021 Coronavirus 2019 PCR Interp N/A [facility] Vital Signs Date Time Vital Sign Value Performing Clinician Danniellei mikhail 09-10-2023 12:48-0400 Blood Pressure Location CrestockL [facility] 09-10-2023 12:48-0400 Diastolic blood pressure 79 mm[Hg] Benjamin NILL [facility] 09-10-2023 12:48-0400 Heart rate 91 /min Benjamin NILL [facility] 09-10-2023 12:48-0400 Respiratory rate 16 /min Benjamin NILL [facility] 09-10-2023 12:48-0400 Systolic blood pressure 136 mm[Hg] Benjamin NILL [facility] Encounters Encounter Date Encounter Type Care Provider Facility Start: 11-11-2023 End: 11-11-2023 ambulatory CHIRAG WEIR Not Available Start: 09-10-2023 End: 09-11-2023 ambulatory Jasmin Parrish Facility:[facility] Start: 09-10-2023 End: 09-10-2023 Patient encounter procedure Benjamin R NILL [facility] Start: 02-18-2023 End: 02-18-[address] CHIRAG WEIR . Facility:[facility] Start: 02-09-2023 End: 02-10-[address] JASMIN PARRISH . Facility:[facility] Start: 12-29-2022 End: 12-29-[address] JASMIN PARRISH . Facility:[facility] Start: 12-24-2022 End: 12-24-[address] DEVON RICHARDSON Facility: Start: 12-02-2022 End: 12-03-2022 ambulatory Benjamin R NILL Facility:[facility] Start: 12-02-2022 End: 12-02-2022 Patient encounter procedure Benjamin R NILL [facility] Start: 11-20-2022 End: 11-21-2022 ambulatory Benjamin R NILL Facility:[facility] Start: 11-20-2022 End: 11-21-2022 ambulatory Benjamin R NILL Facility:[facility] Start: 11-20-2022 End: 11-20-2022 Lab Drop off Benjamin R NILL [facility] Start: 11-20-2022 End: 11-20-2022 Patient encounter procedure Benjamin R NILL [facility] Start: 10-28-2022 End: 10-29-2022 ambulatory Benjamin R NILL Facility:[facility] Start: 10-10-2022 Encounter for genera l adult medical examination without abnormal findings DR JASMIN PARRISH . [facility] Start: 10-10-2022 ambulatory Jasmin Parrish Facility:[facility] [...] Procedure Procedure Detail Performing Clinician section Benjamin PASCUAL L Cholecystectomy Benjamin NILL Colposcopy Benjamin PASCUALL Esophagogastroduodenoscopy Amelia PASCUALL Excisional biopsy Benjamin GIBSON Comment on above: scalp x 2 Immunizations Immunization Date Immunization Notes Care Provider Fa cility 11-01-2022 SARS-CoV-2 (COVID-19 ) [id number] Benjamin PASCUALL [facility] 10-25-2021 SARS-CoV-2 (COVID-19 ) mRNA BNT-162b2 vax Benjamin PASCUALL [facility] 03-20-2021 SARS-CoV-2 (COVID-19 ) mRNA BNT-162b2 vax Benjamin NILL [facility] Comment on above: Result Comment: 2022: TPVALL 02-27-2021 SARS-CoV-2 (COVID-19 ) mRNA BNT-162b2 vax Benjamin PASCUALL [facility] Comment on above: Result Comment: 2022: TPVALL NEGATED: Highlighted row has not occurred!09-10-2023 influenza virus vaccine, unspecified formulation Benjamin RAMESH [facility] [place] NEGATED: Highlighted row has not occurred!10-28-2022 influenza virus vaccine, unspecified formulation Benjamin RAMESH [facility] Payers Date Payer Category Payer Unknown [id number] 2.16.84 [id number] 1994 Unknown [id number] 2.16.84 [id number] 1994 Unknown [id number] 2.16.84 [id number] 1994 Unknown [id number] 2.16.84 [id number] 1994 Unknown [id number] 2.16.84 [id number] 1994 Unknown [id number] 2.16.84 [id number] 1994 Unknown [id number] 2.16.8 [id number] 1994 Unknown [id number] 2.16.8 [id number] 1994 Unknown [id number] 2.16.8 [id number] 1994 Unknown [id number] 2.16.8 [id number] 1994 Unknown [id number] 2.16.8 [id number] 1994 Unknown [id number] 2.16.8 [id number] 1994 Unknown [id number] 2.16.840 .[id number] 1959 Unknown [id number] 1959 Unknown [id number] Self-pay Self Pay [id number] Social History Date Type Detail Facility Tobacco smoking stat [facility] Unknown if ever smoked [facility] Start: 1995 Sex Assigned At Female Twila [facility] Start: 10-28-2022 Tobacco smoking status Ex-smoker (fi nding) [facility] Tobacco smoking status Former sm okeless tobacco user, quit more than 30 days ago [facility] Sex Assigned At Female [facility] Goals Date Patient Goal Desired Activity /State Functional Status Date Assessment Result Facility 09-10-2023 Functional Status N/A [facility] Clinical Note 09-10-2023 Note Date [...] QID, # 120 tab(s), Refills(s) 3, Pharmacy: [facility]/pharmacy #[id number], 157.4, cm, 09/10/23 12:54:00 EDT, Height/Length Dosing, 76.6, kg, 09/10/23 12:54:00 EDT, Weight Dosing 2. Duodenogastric bile reflux (K21.9: Gastro-esophageal reflux disease without esophagitis) see # 1 Ordered: sucralfate, 1 gm = 1 tab(s), Oral, QID, # 120 tab(s), Refills(s) 3, Pharmacy: [facility]/pharmacy #[id number], 157.4, cm, 09/10/23 12:54:00 EDT, Height/Length Dosing, 76.6, kg, 09/10/23 12:54:00 EDT, Weight Dosing Follow-up No qualifying data available Problem List/Past Medical History Ongoing ADHD Asthma BMI 30.0-30.9,adult Chronic cystitis Dependent edema Depression Duodenogastric bile reflux Dysuria Epigastric pain (more content not included)... [facility] Comment on above: Result Comment: Elec tronically Signed By: GADIEL CASTILLO, Benjamin [email or web address].pilar\Date and Time Signed: 09/10/23 14:18 EDT Clinical [...] vaccine, inactivated - Not Given Patient Refuses [facility] Comment on above: Result Comment: Elec tronically Signed By: GADIEL CASTILLO, Benjamin Escobedo\Date and Time Signed: 10/28/22 08:47 EST Evaluation + Plan note Note Date & Type Note Facility Evaluation + Plan note No data available for this section [facility] [place] [facility] Discharge instructions Note Date & Type Note Facility Hospital Discharge instructions No data available for this section [facility] [place] Progress note Note Date & Type Note Facility Progress note No data available for this section [facility] [place] Advance Directives No Advanced Directives Records Found [...] Personnel Name: Jasmin Parrish MD Address: Address: [address] [place] [address] Personnel Name: Jasmin Parrish MD Address: Address: [address] [place] [address] Personnel Name: Jasmin Parrish MD Address: Address: [address] [place] [address] Personnel Name: Jasmin Parrish MD Address: Address: [address] [place] [address] INFORMATION SOURCE (unrecogn ized section and content) DATE CREATED AUTHOR 11/21/2022 [facility] DATE CREATED AUTHOR AUTHOR'S ORGANIZ ATION 02/28/2023 [facility] DATE CREATED AUTHOR AUTHOR'S ORGANIZ ATION 09/12/2023 [facility] DATE CREATED AUTHOR AUTHOR'S ORGANIZ ATION 11/12/2023 [facility] EPIC FOR RECORDS PERTAINING TO PATIENTS WHO ARE [...] BE BASED ON THE PRIMARY CLINICAL RECORDS. [facility] [employer] [facility]. provides no warranty or guarantee of the accuracy or completeness of information in this document.
== END 2024-04-13 21:29 | disposition home or self-care (01) ==
LOC: LAB 21:28
PROVIDERS: PCP Family Medicine; Visit Provider Physician Assistant
DX: Z01.419 Encounter for gynecological examination (general) (routine) without abnormal findings (principal)
CPT/HCPCS: G0145

== ENCOUNTER 2024-05-10 14:28 | Outpatient (OUT) | payer BC, SELFPAY | END 2024-05-10 14:29 | disposition home or self-care (01) | LOC: PST 14:28 | PROVIDERS: PCP Family Medicine; Visit Provider Surgery | DX: Z01.818 Encounter for other preprocedural examination (principal); R10.13 Epigastric pain ==

== ENCOUNTER 2024-05-11 07:49 | Day surgery (SDC) | payer BC, SELFPAY ==
--- OUTSIDE RECORDS SUMMARY | 2024-05-11 07:53 | XMS_ITS ---
Patient Summarization (C-CDA 2.1 CCD) Created on: May 11, 2024 JESS SUAZO : 1995 Sex: Undifferentiated Author Organization Sample organization Care Team Providers Care Associate Theatre Professor Name Role Phone Jasmin Parrish Primary Care Provider Kaushik Richardson Attending Provider Jasmin Parrish Primary Care Physician Benjamin RAMESH R Attending Unavailable DESTIN ., DR BEARD [...] Unavailable ZIEBER, DR GABRIELLA Velazco Consulting Unavailable Jasmni Parrish Referring Unavailable NILL, Benjamin R Attending Unavailable NILL, Benjamin R Attending Unavailable NILL, Benjamin R Attending Unavailable NILL, Benjamin R Attending Unavailable HoyJasmin Referring Unavailable NILL, Benjamin R Attending Unavailable NILL, Benjamin R Admitting Unavailable NILL, Benjamin R Attending Unavailable FRANSICO HENLEY Attending Unavailable DESTINCHIRAG Attending Unavailable ARUNA DOUGLAS Attending Unavailable Unavailable Unavailable Unavailable Encounters Encounter Date Encounter Type Care Provider Facility Start: 04-26-2024 End: 04-26-2024 ambulatory ARUNA DOUGLAS [facility] Start: 04-13-2024 End: 04-13-2024 ambulatory FRANSICO KALE Not Available Start: 11-11-2023 End: 11-11-2023 ambulatory CHIRAG WEIR Not Available Start: 09-10-2023 End: 09-11-2023 ambulatory Jasmin Parrish Facility:[facility] Start: 09-10-2023 End: 09-10-2023 Patient encounter procedure Benjamin R SAMARAL [facility] Start: 02-18-2023 End: 02-18-[address] CHIRAG WEIR . Facility:[facility] Start: 02-09-2023 End: 02-10-[address] JASMIN PARRISH . Facility:[facility] Start: 12-29-2022 End: 12-29-[address] JASMIN PARRISH . Facility:[facility] Start: 12-24-2022 End: 12-24-[address] DEVON RICHARDSON Facility: Start: 12-02-2022 End: 12-03-2022 ambulatory Benjamin R NILL Facility:[facility] Start: 12-02-2022 End: 12-02-2022 Patient encounter procedure Benjamin R NILL [facility] Start: 11-20-2022 End: 11-21-2022 ambulatory Benjamin R NILL Facility:[facility] Start: 11-20-2022 End: 11-21-2022 ambulatory Benjamin R NILL Facility:[facility] Start: 11-20-2022 End: 11-20-2022 Lab Drop off Benjamin R NILL [facility] Start: 11-20-2022 End: 11-20-2022 Patient encounter procedure Benjamin R NILL [facility] Start: 10-28-2022 End: 10-29-2022 ambulatory Benjamin RAMESH Facility: [facility] Start: 10-10-2022 Encounter for genera l adult medical examination without abnormal findings DR JASMIN PARRISH . [facility] Start: 10-10-2022 ambulatory Jasmin Parrish Facility:[facility] Start: 10-10-2022 ambulatory Jasmin Parrish Facility:[facility] Start: 10-07-2022 End: 10-08-[address] JASMIN PARRISH . Facility: Start: 10-07-2022 End: 10-08-2022 Encounter for general adult medical examination without abnormal findings DR JASMIN PARRISH . Facility: Start: 03-24-2022 End: 03-25-[address] CHIRAG WEIR . Facility: Start: 01-15-2021 End: 01-15-2021 Patient encounter procedure Jasmin Parrish -Pre-Surgical Testing Goals Date Patient Goal Desired Activity /State Immunizations Immunization Date Immunization Notes Care Provider Fa cilinathanael 11-01-2022 SARS-CoV-2 (COVID-19 ) mRNAMUL.ORD![id number] Benjamin RAMESH [facility] 10-25-2021 SARS-CoV-2 (COVID-19 ) mRNA BNT-162b2 vax Benjamin PASCUALL [facility] 03-20-2021 SARS-CoV-2 (COVID-19 ) mRNA BNT-162b2 vax Benjamin NILL [facility] Comment on above: Result Comment: 2022: TPVALL 02-27-2021 SARS-CoV-2 (COVID-19 ) mRNA BNT-162b2 vax Benjamin NILL [facility] Comment on above: Result Comment: 2022: TPVALL NEGATED: Highlighted row has not occurred!09-10-2023 influenza virus vaccine, unspecified formulation Benjamin GADIEL [facility] NEGATED: Highlighted row has not occurred!10-28-2022 influenza virus vaccine, unspecified formulation Benjamin PASCUALBette [facility] Medications Current Medications Medication Drug Class(es) Dates [...] QID, # 120 tab(s), Refills(s) 3, Pharmacy: [facility]/pharmacy #[id number], 157.4, cm, 09/10/23 12:54:00 EDT, [...] Refill(s) 0 Start Date: 10/24/22 Status: Ordered Payers Date Payer Category Payer Unknown [id number] 2.16.84 [id number] 1995 Unknown [id number] 2.16.84 [id number] 1995 Unknown [id number] 2.16.84 0.1.044507.3.579.2.593 1995 Unknown [id number] 2.16.84 0.1.530959.3.579.2.593 1995 Unknown [id number] 2.16.84 0.1.762063.3.579.2.593 1995 Unknown [id number] 2.16.84 0.1.205001.3.579.2.593 1995 Unknown [id number] 2.16.8 40.1.271107.3.579.2.727 1995 Unknown [id number] 2.16.8 40.1.562282.3.579.2.727 1995 Unknown [id number] 2.16.8 40.1.202820.3.579.2.727 1994 Unknown [id number] 2.16.8 40.1.923505.3.579.2.727 1994 Unknown [id number] 2.16.8 40.1.506429.3.579.2.727 1994 Unknown [id number] 2.16.8 40.1.311006.3.579.2.727 1994 Unknown [id number] 2.16.84 0.1.454312.3.579.2.1259 1994 Unknown [id number] 2.16.840 .1.154411.3.579.2.1259 1994 Unknown [id number] 2.16.8 40.1.212693.3.579.2.1286 1959 Unknown [id number] 1960 Unknown [id number] Self-pay Self Pay [id number] Problems Active Problems Problem Classification Problem Date Documented Da te Episodic/Chronic Abdominal pain (4 sources) Epigastric pain; Translations: [Epigastric pain] Onset: [...] unspecified; Translations: [DORSALGIA UNSPECIFIED] Onset: 10-10-2022 Episodic Procedures Date Procedure Procedure Detail Performing Clinician section Benjamin Amos Cholecystectomy Benjamin RAMESH Colposcopy Benjamin RAMESH Esophagogastroduodenoscopy Amelia RAMESH Excisional biopsy Benjamin GIBSON Comment on above: scalp x 2 Results Test Name Value Interpretation Reference Range Facility Ambulatory Visit Summaryon 1 Ambulatory Visit Summary JESS SUAZO :1995 Visit Date:09/10/2023 Ambulatory Visit Instructions Your Diagnosis Epigastric pain Duodenogastric bile reflux Your Care Team Attending Physician - GADIEL CASTILLO, Benjamin Velazco Primary Care Physician - Jasmin Parrish MD Referring Physician - Jasmin Parrish [...] Duodenogastric bile reflux Refills: 3 Pickup at [facility]/pharmacy #[id number] Unchanged albuterol (Ventolin HFA 90 mcg/ inh [...] if questions or concerns Unchanged ethinyl estradiol-norethindrone (Junel Fe oral tablet) 1 Tablets By Mouth Every [...] physician if questions or concerns Pharmacy Information [facility]/pharmacy #[id number]: [address], [place] [phone] Medications and Immunizations Administered Not Given influenza [...] for. Neoplasm of uncertain behavior of skin Normal [facility] Consultation Noteon 08-31-20 23 Consultation Note [id number] [id number] F Normal [facility] Physician Referralon 023 Physician Referral [id number] 0010 [id number] F Normal [facility] PAP ACOG PANEL 2: 21 to 29on 02-26-2023 . . Normal [facility] Comment on above: Performed By: #### P TT, PT #### [facility] [address] [place] [address] Dr. Beatrice Arellano Age Gdln ACOG Testing - [facility] Comment on above: Performed By: #### P TT, PT #### [facility] [address] [address] [address] Beatrice Arellano DIAGNOSIS: Comment [facility] Comment on above: Result Comment: NEGA TIVE FOR INTRAEPITHELIAL LESION OR MALIGNANCY. Performed By: #### P TT, PT #### [facility] [address] [address] [address] Beatrice Arellano Methodology: Comment [facility] Comment on above: Result Comment: This liquid based ThinPrep(R) pap test was screened with the use of an image guided system. Performed By: #### P TT, PT #### [facility] [address] [address] [address] Beatrice Arellano Note: Comment [facility] Comment on above: Result Comment: The Pap smear is a screening test designed to aid in the detection of premalignant and malignant conditions of the uterine cervix. It is not a diagnostic procedure and should not be used as the sole means of detecting cervical cancer. Both false-positive and false-negative reports do occur. . Performed By: #### P TT, PT #### [facility] [address] [address] [address] Beatrice Arellano Performed by: Comment [facility] Comment on above: Result Comment: Charles Whiting, Bill Clerk (ASCP) Performed By: #### P TT, PT #### [facility] [address] [place] [address] Dr. Beatrice Arellano Reflex Criteria: Comment Normal [facility] Comment on above: Result Comment: The HPV DNA reflex criteria were not met with this specimen result therefore, no HPV testing was performed. . Performed By: #### P TT, PT #### [facility] [address] [address] [address] Beatrice Arellano Specimen adequacy: Comment Normal [facility] Comment on above: Result Comment: Sati sfactory for evaluation. Endocervical and/or squamous metaplastic cells (endocervical component) are present. Performed By: #### P TT, PT #### [facility] [address] [place] [address] Dr. Beatrice Arellano LIPID PROFILEon 02-09-2023 CHOL-HDL RATIO NORM SEE BELOW Normal [facility] Comment on above: Result Comment: 3.3 - 4.4 LOW RISK 4.4 - 7.1 AVERAGE RISK 7.1 - 11.0 MODERATE RISK >11.0 HIGH RISK Performed By: #### P TT, PT #### [facility] [address] [place] [address] Dr. Beatrice Arellano Cholesterol [Mass/Vol] 160 mg/dL Normal <=200 [facility] Comment on above: Performed By: #### P TT, PT #### [facility] [address] [address] [address] Beatrice Arellano Cholesterol in HDL [Mass/Vol] 50 mg/dL Normal 40-60 [facility] Comment on above: Performed By: #### P TT, PT #### [facility] [address] [place] [address] Dr. Beatrice Arellano Cholesterol in LDL [Mass/Vol] 94.6 mg/dL Normal [facility] Comment on above: Performed By: #### P TT, PT #### [facility] [address] [place] [address] Dr. Beatrice Arellano Cholesterol.total/C holesterol in HDL [Mass ratio] 3.2 {ratio} Normal [facility] Comment on above: Performed By: #### P TT, PT #### [facility] [address] [address] [address] Beatrice Arellano HDL NORMAL > or = 60 mg/dl - LO W CARDIOVASCULAR RISK <40 mg/dl - HIGH CARDIOVASCULAR RISK Normal [facility] Comment on above: Performed By: #### P TT, PT #### [facility] [address] [address] [address] Beatrice Arellano LDL CALC NORMAL SEE BELOW Normal [facility] Comment on above: Result Comment: <100 mg/dl OPTIMAL 100 - 129 mg/dl NEAR OR ABOVE OPTIMAL 130 - 159 mg/dl BORDERLINE HIGH 160 - 189 mg/dl HIGH >190 mg/dl VERY HIGH Performed By: #### P TT, PT #### [facility] [address] [address] [address] Beatrice Arellano Triglyceride [Mass/Vol] 77 mg/dL Normal <=150 [facility] Comment on above: Performed By: #### P TT, PT #### [facility] [address] [address] [address] Beatrice Arellano VLDL CALC 15.4 mg/dL Normal [facility] Comment on above: Performed By: #### P TT, PT #### [facility] [address] [address] [address] Beatrcie Arellano LIVER PROFILEon 02-09-2023 Albumin [Mass/Vol] 3.7 g/dL Normal 3.4-5.0 [facility] Comment on above: Performed By: #### P TT, PT #### [facility] [address] [address] [address] Beatrice Arellano Albumin/Globulin [Mass ratio] 1.1 {ratio} Normal [facility] Comment on above: Performed By: #### P TT, PT #### [facility] [address] [address] [address] Beatrice Arellano ALP [Catalytic activity/Vol] 66 U/L Normal 46-116 [facility] Comment on above: Performed By: #### P TT, PT #### [facility] [address] [place] [address] Dr. Beatrice Arellano ALT [Catalytic activity/Vol] 19 U/L Normal 14-59 [facility] Comment on above: Performed By: #### P TT, PT #### [facility] [address] [address] [address] Beatrice Arellano AST [Catalytic activity/Vol] 15 U/L Normal 15-37 [facility] Comment on above: Performed By: #### P TT, PT #### [facility] [address] [place] [address] Dr. Beatrice Arellano BILI, CONJUGATED 0.1 mg/dL Normal 0.0-0.2 [facility] Comment on above: Performed By: #### P TT, PT #### [facility] [address] [place] [address] Dr. Beatrice Arellano Bilirubin [Mass/Vol] 0.4 mg/dL Normal 0.2-1.0 [facility] Comment on above: Performed By: #### P TT, PT #### [facility] [address] [place] [address] Dr. Beatrice Arellano Globulin (S) [Mass/Vol] 3.4 g/dL Normal [facility] Comment on above: Performed By: #### P TT, PT #### [facility] [address] [place] [address] Dr. Beatrice Arellano Protein [Mass/Vol] 7.1 g/dL Normal 6.4-8.2 [facility] Comment on above: Performed By: #### P TT, PT #### [facility] [address] [place] [address] Dr. Beatrice Arellano [facility]19 [facility]on SARS-CoV-2 (COVID-19) RNA AISHA+probe Ql (Unsp spec) Not detected Normal NOT DETECTED [facility] Comment on above: Result Comment: When [...] for this test is supported by the [place] of Health and Human Service's declaration that [...] Performed By: #### P TT, PT #### [facility] [address] [place] [address] Dr. Beatrice Arellano INFLUENZA A AND B [facility] 12-29 [facility] SEE BELOW Normal [facility] Comment on above: Result Comment: Nega tive for Flu A protein angiten. Infection due to Flu A cannot be ruled out. Flu A angiten in the sample may be below the detection limit of the test. Performed By: #### I NFLUAB #### [facility] [address] [place] [address] Dr. Beat[facility] Normal [facility] Comment on above: Result Comment: Nega tive for Flu B protein antigen. Infection due to Flu B cannot be ruled out. Flu B antigen in the sample may be below the detection limit of the test. Performed By: #### I NFLUAB #### [facility] [address] [place] [address] Dr. Beatrice Arellano INFLUENZA A AG Negative Normal NEGATIVE SEE COMMENT [facility] Comment on above: Performed By: #### I NFLUAB #### [facility] [address] [place] [address] Dr. Beatrice Arellano INFLUENZA B AG Negative Normal NEGATIVE SEE COMMENT [facility] Comment on above: Performed By: #### I NFLUAB #### [facility] [address] [place] [address] Dr. Beatrice Arellano ER URINE PROFILEon 02-01-202 3 Bilirubin Ql (U) SMALL Abnormal NEGATIVE [facility] Comment on above: Performed By: #### T SH, PREGQNT #### [facility] [address] [place] [address] Dr. Beatrice Arellano Clarity (U) CLEAR Normal CLEAR [facility] Comment on above: Performed By: #### T SH, PREGQNT #### [facility] [address] [place] [address] Dr. Beatrice Arellano Color (U) YELLOW Normal YELLOW [facility] Comment on above: Performed By: #### T SH, PREGQNT #### [facility] [address] [place] [address] Dr. Beatrice Arellano ERUAHD A micrscopic examina tion will be performed if indicated. Normal [facility] Comment on above: Performed By: #### T SH, PREGQNT #### [facility] [address] [place] [address] Dr. Beatrice Arellano Glucose Ql (U) Negative Normal NEGATIVE [facility] Comment on above: Performed By: #### T SH, PREGQNT #### [facility] [address] [place] [address] Dr. Beatrice Arellano Hemoglobin Ql (U) Negative Normal NEGATIVE [facility] Comment on above: Performed By: #### T SH, PREGQNT #### [facility] [address] [place] [address] Dr. Beatrice Arellano Ketones Ql (U) 15 mg/dl Abnormal NEGATIVE [facility] Comment on above: Performed By: #### T SH, PREGQNT #### [facility] [address] [place] [address] Dr. Beatrice Arellano LEUKOCYTES Negative Normal NEGATIVE [facility] Comment on above: Performed By: #### T SH, PREGQNT #### [facility] [address] [place] [address] Dr. Beatrice Arellano Nitrite Ql (U) Negative Normal NEGATIVE [facility] Comment on above: Performed By: #### T SH, PREGQNT #### [facility] [address] [place] [address] Dr. Beatrice Arellano pH (U) 5.5 [pH] Normal 5-9 [facility] Comment on above: Performed By: #### T SH, PREGQNT #### [facility] [address] [place] [address] Dr. Beatrice Arellano SPEC GRAVITY 1.025 Normal 1.005-<=1.02 5 [facility] Comment on above: Performed By: #### T SH, PREGQNT #### [facility] [address] [place] [address] Dr. Beatrice Arellano UA PROTEIN Negative Normal NEGATIVE/ TRACE [facility] Comment on above: Performed By: #### T SH, PREGQNT #### [facility] [address] [place] [address] Dr. Beatrice Arellano UR MICRO IND NOT INDICATED Normal [facility] Comment on above: Performed By: #### T SH, PREGQNT #### [facility] [address] [place] [address] Dr. Beatrice Arellano Urobilinogen Qn (U) 0.2 {Elana'U}/dL Normal 0.2 - 1. 0 [facility] Comment on above: Performed By: #### T SH, PREGQNT #### [facility] [address] [place] [address] Dr. Beatrice Arellano URon 12-24-2022 , QUAL Negative Normal NEGATIVE [facility] Comment on above: Performed By: #### T SH, PREGQNT #### [facility] [address] [place] [address] Dr. Beatrice Arellano PROF CHEM 8 (BAS METB)on Anion gap [Moles/Vol] 14.2 mmol/L Normal [facility] Comment on above: Performed By: #### P TT, PT #### [facility] [address] [place] [address] Dr. Beatrice Arellano Calcium [Mass/Vol] 8.8 mg/dL Normal 8.5-10.1 [facility] Comment on above: Performed By: #### P TT, PT #### [facility] [address] [address] [address] Beatrice Arellano Chloride [Moles/Vol] 102 mmol/L Normal 98-107 [facility] Comment on above: Performed By: #### P TT, PT #### [facility] [address] [place] [address] Dr. Beatrice Arellano CO2 [Moles/Vol] 24.6 mmol/L Normal 21.0-32.0 [facility] Comment on above: Performed By: #### P TT, PT #### [facility] [address] [place] [address] Dr. Beatrice Arellano Creatinine [Mass/Vol] 0.67 mg/dL Normal 0.55-1.02 [facility] Comment on above: Performed By: #### P TT, PT #### [facility] [address] [place] [address] Dr. Beatrice Arellano EGFR-AF FIJIAN >60 Normal >=60 [facility] Comment on above: Performed By: #### P TT, PT #### [facility] [address] [place] [address] Dr. Beatrice Arellano EGFR-NON AF FIJIAN >60 Normal >=60 [facility] Comment on above: Performed By: #### P TT, PT #### [facility] [address] [place] [address] Dr. Beatrice Arellano Glucose [Mass/Vol] 106 mg/dL Normal 74-106 [facility] Comment on above: Performed By: #### P TT, PT #### [facility] [address] [address] [address] Beatrice Arellano Potassium [Moles/Vol] 3.8 mmol/L Normal 3.5-5.1 [facility] Comment on above: Performed By: #### P TT, PT #### [facility] [address] [place] [address] Dr. Beatrice Arellano Sodium [Moles/Vol] 137 mmol/L Normal 136-145 [facility] Comment on above: Performed By: #### P TT, PT #### [facility] [address] [place] [address] Dr. Beatrice Arellano Urea nitrogen [Mass/Vol] 14.0 mg/dL Normal 7.0-18.0 [facility] Comment on above: Performed By: #### P TT, PT #### [facility] [address] [place], [place] [address] Dr. Beatrice Arellano Urea nitrogen/Creatinine [Mass ratio] 20.9 mg/mg Normal [facility] Comment on above: Performed By: #### P TT, PT #### [facility] [id number] Beatrice Arellano General Surgery Office/Clini c [...] - Not Given Patient Refuses Normal [facility] Comment on above: Result Comment: Elec tronically Signed By: GADIEL CASTILLO, Benjamin Escobedo\Date and Time Signed: 12/02/22 10:23 EST Coding Summary.on 11-26-2022 Coding Summary. [id number] Gh0b Ww+PGhlYWQ+WU5VOOPcN51ae SIslG3QE5xNIC5CRKNSMIBQL Q3DLS5gsAA3RQtmS7VlkuNn SaxqpLLtEY34QUf0TNV2yHnm MKyipL1dsOLqT9z8VoVwCE62 aP52VCdwQHJnZbY7HpPbmffj bWFy Q1qnZeStrVApVoi+PHRhYmxl IHdpZHRoPScxMDAlJyBzdHls FN0hBo0sHZQeSPUmnKadaHBd OiBj y4rnXVAgKEcvLJ0bpDxgB5Ki aFI9KMGzp5o1Zf95gPN+PHRk AMF2gCwvSQxut309GyYyq4je IDM3 jWJeIWyuRSK7G56fw2V6DPRl AHNjXQZ3pIS6cI6fnPnomaox H1AvkNOqFyC7PSA3rBDumJ2w bGln fhfqeJ4wKqy+S53PEH5NDFSJ AW1MYoi4E9ToHvwebQB+PC90 QVBxFA64eDBhfYPiu0vteWt3 JzEw ITDrKUY9bGszZRihj8IeRACa L70zkDRsy5V7MSMkzXanxWBk BuOnyDE0fV2cOFqicjlus6ju dzsn Cbeuc8mlhl17oN54S69mRUxn ROIfSAW3SMLuATFuiLztfe1n fN7tYq7+ZUiji6krr0eujRh0 IjIw PHFmuxAetHleXAP1g4KwAq05 W6UcgPhvw2RmFzp6ex94eDLf p8N8uJZ5ILqnFWPkdM2dOZqd ZnQ6 FSFhFaBbzZ61nAMnJEdrPr3b wYximKlrQS0nDBRhbyphOZHs aQ0mBYYymIJilPczJD0pSXXj bjtm t893JcCqCFV3IHMzlKHvK8Gl dQ2iChCaRWVfJUCcV1NzfQWe CCpoD280MJaoXlG2JSGajcLw Y2Fs GPHbxWjxNpK3d5V7Ar2Re9Cg vcskEUW5VTotLJVpObM9EtUj CcU0B3OuBoj2HXAlgUlgIC4v J3Bh EPLrmiqsgkromAC6YGTnKQZx eZ40xBYuELasKn6at0C3z415 TTVrMSHuuK46Nv9keXkkUYSg dCBU vW1bdppus2cdpunnQdNhPRYr RKy7JMl3CXUfsXirDuLpHAA8 YqG3KRR0vAKgjP5abJpdnsjx dG9w Oyc+E38grG3tLZT1KHH5cvcs TPFaufKaSI85PB51T8IjOytu dGFibGU+ARJqswRkwZgqLN4u YmFj y2oej1NtYExrZ5XxZNUcRXqv Fow2KJMuPUI0dIW2nS3pZMPt NTuof9V9zYN6E9TwibJwiw0r b2xs WKAeLUjiJ52pdFHkz4J1TKUc pCX6NEYwjRjxUlYgjN50Qbh+ QGGwsThvh3IjEdqwy2qvq4om dGg9 QxFjLUEnvdLfsPasZYO0a2Xy Kq81V85vDWrfUUUuTAGzNLRx GMUlcBpenl6cnD6xKv8+PGNv bCB3 cWN0wH4zWXZbIxW7FEeeR133 XmTztKIzUupij4cyt8nbqFm0 LnVrLENegwDwsJhbDUN1b9Mw Lz48 N07nZMgvFLOkAGZxPTAlZGHu mAtnyd1zhX3aUk2+MQ8zy3qj zc18fQ17rAO+ZAQlBFI1qMyb PSdw YAKgdB0aGGiuTzJ2UODzVwHy xO47iXNiIXvbXz0ukAtiaDgv AK0dRQIsfhyti496KbZjx6dv IDEw hGEbEUtvRXO5V46xr9O6TLRx DPPrIWU3mXG7lX3woJhrdkul bGVmdDsgdmVydGljYWwtYWxp Z246 IHRvcDsnPlBhdGllbnQgTmFt LEv6I1KvQhk0ZLIvlBndMW4m iNYmVKyvEx9ujHdoaDnoRZ8o NTBp nyjoq710HzJue9ysHBTmqTWf RBljTUX0U47jj0P1TGMgLJWi OHJ8wDX4vY7gvTsuedlndWAo dDsg vnVomXmhNMlmMHqwF876TALj qHrrNeLchkBoJILkzFM6FV71 YC31pOGst5K2cSH5Z3AgENWh bmct ipxfhXG8WXMnMRWqaZ24Ot3s pPaiUw4qQFYdTBK5KWOwiQGs R9MdqO5zJoMiJDFjSOBqR5Yf eHQt AKmbC621SGizCrL7QWSfzdCa R7FcABKmrAlcSmC7b0T5Hr5H N6Y8YD14MG93bAXfx0I3bXG3 J3Bh UBOxdabscshkeKM2TWHtRJCl wD72Fw4iwTbfBd1xXLBwFOO1 NBUpeRCyG9BhxK0kHoGgXITj MDAw V7BsbWRiBFoqS691SDuuUyK1 QCAjdfKpE6UvFYByzIdxOsJ0 z1H2Ds2SGDu2PB29RX86rHUh c3R5 uES9O6YwMBZxixfwocqniMZ9 HQPvCDAygN17Nc7mdSvgRc7x GWMiTWW4XEGyqMRmU7CmtN4d OiAj ERXmBUYlK9RjyCRcURfxO865 EKmsLqU3LCOkbpHmN3KbBZOr uBiaIhT7d6H7Ou4EQJIiGD33 IFR5 gZI8LH46EJ75X9SkWmoysYCc bGU+PHRhYmxlIHdpZHRoPScx XJZxMrKrsZabIB3iLp1qHDLv LWNv gMruiNOmHtXml8saDMCtZUtd CI5ysEdhX6CjiQG0JEScs0v3 Se13A67yB7ZytXB+PGNvbCB3 aWR0 kG9cWnAtYgA6YMjwR439FrXj bUXmBhstm2kdr0eywSm6QaK9 ZSWpfmGoeGsjDTQ0j5DsPq56 Y29s IHdpZHRoPSIxNSUiIHZhbGln vs5wlA1kIf6+NACvtUF5sRH7 oG8dDtVjFfH9YHnqC148VzQi cCIv Rgyvh9hpj9tcxEh6PjNiRGUw urYniWjhHWQ0r3JwBe31Y4Tf tScaa4LqJdq9dh18rGJok7U1 bGU9 D8NnBDFxkqsieQXnzWdbRI6v RRMhppvqTBGtaP8kMVAcU8w5 ZwAoBiT3FRgyZ5ObmaR8BPWp cHQg MAhgCTQ1X31or4Z6MGXuKFAg CUM8nCH4bC5liYnfpcbozNSh gTboufWcxTztITmyBFyrH692 IHRv yAniZCDhiW8nEZNnmLWcsFkp MF7uDCLuzlxyUrsDXBSSVCOM TZDBHrMXKR95HT96jEGpm7O2 bGU9 B4BvVCFjarmwikrdsZJ8DENe PBBnmX98uPKvOEffYz5fr9Y7 a748MEHsNUKdwC98Sj6eeLkw MTBw gOBEoG8jyctae9oeemooHcVo LAXgUOo0WVm5OALknXzfJbWn OJK9XkM1CCF8aFXgkJ9gtGwf bjog fH8wVtt+OERqTJacLTg3PVxm dGQ+HBFaMOV2nMykQLvpREDe jF5dQRQhQ6t6BlAqHhG3AZbu O3Bh KMMeefgfKz27iL7zLoHtQiR2 IKarV4FagxX4GPCsjSLvDRhi JHS1W97ff1P0CLEiGIWcVPV3 dGV4 yG0kbPdenjlwmIDsrZwddkDu lGehBVfmEGslU743QRJtyUew RxH0WOnjNXItSN46HQ65mVRn c3R5 wMB9P8DeOMFalbkuhdswwIP0 JIAmGEKrwY56aRXkXKcoUz7l t9S3v770EPTcGECzbU44Ad8v dDog RGLiwTGZqS6iwhnmc5ejeprg EqYpQGGbPTp2HXo5OGKhjByt NcVzHRY4BxF4NWH3eVBbzU8z bGln tlbdbI4aKyu+NhDwLEzxQG60 ZV59aJQqz4G8eYF8Q0MvSRPm chcbubgtsXN9XLKpLJPedC39 cGFk QEszNq4nm0S5s196GRUoMQJl wH43Qq5iqZmrLECmbLFJmW1z euvaa8perjalDkMyBRZsNJl0 ZXh0 VHHmhNulCzCnHAN3LfL9MJP2 tPNzsZ6itAormmntyB6nEut+ FQGlRGNgr6Ndy0PgPA66PJ13 L3Ry PjwvdGFibGU+PHRhYmxlIHdp YHEoAZbgIHToLnOlbXktAN4k Km2lKCGrMRGnxVoqtIHqBzTd b2xs DZPtUMlkFB4whDamR4YrmLY6 TNYjz0q9Sq36W65oC5WkcKR+ EYOebOU6bDR1rE9jYjKfNzY3 YWxp M709LkHkvBPySrmpk5ptp3ms kFj5DgExUISvhfNqvYymUOX9 s2GfXc90C96sRQxaNSKfGLEc MCUi HTPhzPcxfm3apH7nDz0+PGNv uBX8jGD6jP7cIeEjVvD6CKzp F755IvMvxDSbGuryZ18qZ7Fo dXA+ LDVcAba1CXEflYcyLV5adMCq JGbdXm4lQUY4KxBfQrVkTJed B5XgTZGwixetatjbuHS4LGXs MDUw rY04Cv8fgVyaGh8rWVFxQJE3 NDYbpRGiV8FguW0qBjJgWCCs UQAyY2LdjWZyHTnvA666GQxd ZnQ7 PBNvhzHnE9VaBXWduEuoLbF5 f3W9Ux9RmSjnqVQrSB5gDhQs IBd5F1IzUja1KKPmwGfiBA8v cGFk OIiaKg0ycTxswEckMO5fYFNj oxiyp966YfMpn4omXZUltGBo LWfyXKE1Y40um8R0DGFdXERk MDA7 oYC5tZ4wlVtoxaeetNYcmMxx lpAmaBcrFDdpJTxwM029TZUj pGtfGvGJKao9X5GoDff5IBTb dHls JL8jjTYuGJtyAh4xdEwvnYus DP1qJFAitkmqm120QyDdq9ts WNObfFCdUCvnJYX2B37iu4B4 ICMw ZTPeXTO5iDP4yQ7cvRgxowok bGVmdDsgdmVydGljYWwtYWxp B650LKWofOjmBt7PZdr1S8Fr Pjx0 PYKpmBmqQB7wdCPfELsfPf8e jEnkiEvyIH4wYRHogyqro890 VoObn1mzUPIfmNOgZVebBBL1 Y29s q0X4NGZuMCTsKAH4kWB2aZ3d bGlnbjogbGVmdDsgdmVydGlj ULjfOLhaQ330UWUqqZtiSbYc eWVy OjwvdGQ+NC99hn70T9ElOmut Lmk9DBQmRTA7rFO3rU2mIAXj RZzhb6X7aIK8U8KyuoLybb6z b2xs YXBz (more content not included)... Normal [facility] General Surgery Office/Clini c Noteon 11-20-2022 [...] Tab, 75 mg= 1 tab(s), Oral, BID Junel Fe 12/12 oral tablet, 1 tab(s), Oral, Daily [...] inactivated - Not Given Patient Refuses Normal [facility] Comment on above: Result Comment: Elec tronically Signed By: GADIEL CASTILLO, Benjamin Velazco\joselito\Date and Time Signed: 11/20/22 14:57 EST Physician Referralon 022 Physician Referral [phone] [id number]: 127 Normal [facility] INSULINon 10-08-2022 Insulin 18.6 uIU/mL Normal 2.6-24.9 [facility] Comment on above: Performed By: #### P TT, PT #### [facility] [address] [place] [address] Dr. Beatrice Arellano LIPID PROFILE SEND OUTon Cholesterol [Mass/Vol] 445 mg/dL Critically high 100-199 [facility] Comment on above: Performed By: #### C MPLC, LIPIDLC, THYPRLC #### [facility] [address] [address] [address] Beatrice Arellano Cholesterol in HDL [Mass/Vol] 18 mg/dL Critically low >39 [facility] Comment on above: Performed By: #### C MPLC, LIPIDLC, THYPRLC #### [facility] [address] [address] [address] Beatrice Arellano Comment: Normal [facility] Comment on above: Performed By: #### C MPLC, LIPIDLC, THYPRLC #### [facility] [address] [address] [address] Beatrice Arellano LDL Chol. Calc. ([facility]) Comment Abnormal 0-99 [facility] Comment on above: Result Comment: Trig lyceride result indicated is too high for an accurate LDL cholesterol estimation. Performed By: #### C MPLC, LIPIDLC, THYPRLC #### [facility] [address] [address] [address] Beatrice Arellano Triglyceride [Mass/Vol] 3146 mg/dL Invalid Interpretation Code 0-149 [facility] Comment on above: Result Comment: Resu lts confirmed on dilution. Performed By: #### C MPLC, LIPIDLC, THYPRLC #### [facility] [address] [address] [address] Beatrice Arellano VLDL Cholesterol, Calc Comment Abnormal 5-40 [facility] Comment on above: Result Comment: The calculation for the VLDL cholesterol is not valid when triglyceride level is >800 mg/dL. Performed By: #### C MPLC, LIPIDLC, THYPRLC #### [facility] [address] [address] [address] Beatrice Arellano PROF 14(COMP METB) SEND OUTo n 10-08-2022 Albumin [Mass/Vol] 3.9 g/dL Normal 3.9-5.0 [facility] Comment on above: Result Comment: Spec imen received lipemic. Value may be decreased by lipemia. Clinical correlation indicated. Performed By: #### C MPLC, LIPIDLC, THYPRLC #### [facility] [address] [place] [address] Dr. Beatrice Arellano Albumin/Globulin [Mass ratio] 1.6 {ratio} Normal 1.2-2.2 [facility] Comment on above: Performed By: #### C MPLC, LIPIDLC, THYPRLC #### [facility] [address] [address] [address] Beatrice Arellano ALP [Catalytic activity/Vol] 68 U/L Normal 44-121 [facility] Comment on above: Performed By: #### C MPLC, LIPIDLC, THYPRLC #### [facility] [address] [place] [address] Dr. Beatrice Arellano ALT [Catalytic activity/Vol] 29 U/L Normal 0-32 [facility] Comment on above: Performed By: #### C MPLC, LIPIDLC, THYPRLC #### [facility] [address] [place] [address] Dr. Beatrice Arellano AST [Catalytic activity/Vol] 34 U/L Normal 0-40 [facility] Comment on above: Performed By: #### C MPLC, LIPIDLC, THYPRLC #### [facility] [address] [place] [address] Dr. Beatrice Arellano Bilirubin [Mass/Vol] mg/dL Normal 0.0-1.2 [facility] Comment on above: Performed By: #### C MPLC, LIPIDLC, THYPRLC #### [facility] [address] [place] [address] Dr. Beatrice Arellano Calcium [Mass/Vol] 8.5 mg/dL Critically low 8.7-10.2 [facility] Comment on above: Performed By: #### C MPLC, LIPIDLC, THYPRLC #### [facility] [address] [place] [address] Dr. Beatrice Arellano Chloride [Moles/Vol] 99 mmol/L Normal 96-106 [facility] Comment on above: Performed By: #### C MPLC, LIPIDLC, THYPRLC #### [facility] [address] [place] [address] Dr. Beatrice Arellano CO2 [Moles/Vol] 20 mmol/L Normal 20-29 [facility] Comment on above: Performed By: #### C MPLC, LIPIDLC, THYPRLC #### [facility] [address] [place] [address] Dr. Beatrice Arellano Creatinine [Mass/Vol] 0.59 mg/dL Normal 0.57-1.00 [facility] Comment on above: Performed By: #### C MPLC, LIPIDLC, THYPRLC #### [facility] [address] [place] [address] Dr. Beatrice Arellano GFR/1.73 sq M.predicted among non-blacks MDRD (S/P/Bld) [Vol rate/Area] 126 mL/min/{1.73_m2} Normal >59 [facility] Comment on above: Performed By: #### C MPLC, LIPIDLC, THYPRLC #### [facility] [address] [place] [address] Dr. Beatrice Arellano Globulin (S) [Mass/Vol] 2.5 g/dL Normal 1.5-4.5 [facility] Comment on above: Performed By: #### C MPLC, LIPIDLC, THYPRLC #### [facility] [address] [place] [address] Dr. Beatrice Arellano Glucose [Mass/Vol] 85 mg/dL Normal 70-99 [facility] Comment on above: Performed By: #### C MPLC, LIPIDLC, THYPRLC #### [facility] [address] [place] [address] Dr. Beatrice Arellano Potassium [Moles/Vol] 3.9 mmol/L Normal 3.5-5.2 [facility] Comment on above: Performed By: #### C MPLC, LIPIDLC, THYPRLC #### [facility] [address] [place] [address] Dr. Beatrice Arellano Protein [Mass/Vol] 6.4 g/dL Normal 6.0-8.5 [facility] Comment on above: Performed By: #### C MPLC, LIPIDLC, THYPRLC #### [facility] [address] [address] [address] Beatrice Arellano Sodium [Moles/Vol] 135 mmol/L Normal 134-144 [facility] Comment on above: Performed By: #### C MPLC, LIPIDLC, THYPRLC #### [facility] [address] [address] [address] Beatrice Arellano Urea nitrogen [Mass/Vol] 8 mg/dL Normal 6-20 [facility] Comment on above: Performed By: #### C MPLC, LIPIDLC, THYPRLC #### [facility] [address] [address] [address] Beatrice Arellano Urea nitrogen/Creatinine [Mass ratio] 14 mg/mg Normal 9-23 [facility] Comment on above: Performed By: #### C MPLC, LIPIDLC, THYPRLC #### [facility] [address] [place] [address] Dr. Beatrice Arellano THYROID PROFILE WITH TSHon 1 12-08-2021 Free Thyroxine Index 1.3 Normal 1.2-4.9 [facility] Comment on above: Performed By: #### C MPLC, LIPIDLC, THYPRLC #### [facility] [address] [address] [address] Beatrice Arellano T3 Uptake 21 % Critically low 24-39 [facility] Comment on above: Performed By: #### C MPLC, LIPIDLC, THYPRLC #### [facility] [address] [address] [address] Beatrice Arellano T4 [Mass/Vol] 6.2 ug/dL Normal 4.5-12.0 [facility] Comment on above: Performed By: #### C MPLC, LIPIDLC, THYPRLC #### [facility] [address] [address] [address] Beatrice Arellano TSH 1.580 uIU/mL Normal 0.450-4.500 [facility] Comment on above: Performed By: #### C MPLC, LIPIDLC, THYPRLC #### [facility] [address] [address] [address] Beatrice Arellano CBC AUTO DIFFon 10-07-2022 BASO # 0.1 103/ul Normal 0.0-0.1 [facility] Comment on above: Performed By: #### C BC #### [facility] [address] [address] [address] Beatrice Arellano Basophils/100 WBC (Bld) 1.2 % Normal 0.2-2.0 [facility] Comment on above: Performed By: #### C BC #### [facility] [address] [address] [address] Beatrice Arellano EO # 0.5 103/ul Normal 0.0-0.7 [facility] Comment on above: Performed By: #### C BC #### [facility] [address] [place] [address] Dr. Beatrice Arellano Eosinophils/100 WBC (Bld) 11.5 % Critically high 0.9-7.0 [facility] Comment on above: Performed By: #### C BC #### [facility] [address] [place] [address] Dr. Beatrice Arellano Erythrocyte distribution width (RBC) [Ratio] 12.1 % Normal 11.0-15.0 [facility] Comment on above: Performed By: #### C BC #### [facility] [address] [place] [address] Dr. Beatrice Arellano Hematocrit (Bld) [Volume fraction] 37.0 % Normal 36.0-48.0 [facility] Comment on above: Performed By: #### C BC #### [facility] [address] [place] [address] Dr. Beatrice Arellano Hemoglobin (Bld) [Mass/Vol] 14.2 g/dL Normal 12.0-16.0 [facility] Comment on above: Performed By: #### C BC #### [facility] [address] [place] [address] Dr. Beatrice Arellano IG # 0.04 10e3/ul Critically high 0.00-0.03 [facility] Comment on above: Performed By: #### C BC #### [facility] [address] [place] [address] Dr. Beatrice Arellano IG % 0.9 % Critically high 0.0-0.5 [facility] Comment on above: Performed By: #### C BC #### [facility] [address] [place] [address] Dr. Beatrice Arellano LYMPH # 1.6 103/ul Normal 1.2-3.8 [facility] Comment on above: Performed By: #### C BC #### [facility] [address] [place] [address] Dr. Beatrice Arellano Lymphocytes/100 WBC (Bld) 36.5 % Normal 20.5-60.0 [facility] Comment on above: Performed By: #### C BC #### [facility] [address] [place] [address] Dr. Beatrice Arellano MANUAL DIFF REQ NO Normal [facility] Comment on above: Performed By: #### C BC #### [facility] [address] [place] [address] Dr. Beatrice Arellano MCH (RBC) [Entitic mass] 35.8 pg Critically high 26.7-34.0 [facility] Comment on above: Performed By: #### C BC #### [facility] [address] [place] [address] Dr. Beatrice Arellano MCHC (RBC) [Mass/Vol] 38.4 g/dL Critically high 29.9-35.2 [facility] Comment on above: Performed By: #### C BC #### [facility] [address] [place] [address] Dr. Beatrice Arellano MCV (RBC) [Entitic vol] 93.2 fL Normal 81.0-99.0 [facility] Comment on above: Performed By: #### C BC #### [facility] [address] [place] [address] Dr. Beatrice Arellano MONO # 0.5 103/ul Normal 0.3-0.8 [facility] Comment on above: Performed By: #### C BC #### [facility] [address] [place] [address] Dr. Beatrice Arellano Monocytes/100 WBC (Bld) 11.5 % Normal 1.7-12.0 [facility] Comment on above: Performed By: #### C BC #### [facility] [address] [place] [address] Dr. Beatrice Arellano NEUT # 1.6 103/ul Normal 1.4-6.5 [facility] Comment on above: Performed By: #### C BC #### [facility] [address] [place] [address] Dr. Beatrice Arellano Neutrophils/100 WBC (Bld) 38.4 % Critically low 43.0-75.0 [facility] Comment on above: Performed By: #### C BC #### [facility] [address] [place] [address] Dr. Beatrice Arellano Platelet mean volume (Bld) [Entitic vol] 9.7 fL Normal 9.5-13.5 [facility] Comment on above: Performed By: #### C BC #### [facility] [address] [place] [address] Dr. Beatrice Arellano PLT 227 103/ul Normal 150-450 [facility] Comment on above: Performed By: #### C BC #### [facility] [address] [place] [address] Dr. Beatrice Arellano RBC 3.97 106/ul Critically low 4.20-5.40 [facility] Comment on above: Performed By: #### C BC #### [facility] [address] [place] [address] Dr. Beatrice Arellano WBC 4.3 103/ul Normal 4.0-11.0 [facility] Comment on above: Performed By: #### C BC #### [facility] [address] [place] [address] Dr. Beatrice Arellano GLYCOHEMOGLOBIN A1Con 2021 ADA RECOMMENDATION SEE BELOW Normal [facility] Comment on above: Result Comment: ADA RECOMMENDED LIMIT 4.0 - 6.0 ADA THERAPEUTIC TARGET < 7.0 ACTION SUGGESTED > 7.0 Performed By: #### P TT, PT #### [facility] [address] [place] [address] Dr. Beatrice Arellano Glucose [Mass/Vol] 97 mg/dL Normal [facility] Comment on above: Performed By: #### P TT, PT #### [facility] [address] [address] [address] Beatrice Arellano HbA1c (Bld) [Mass fraction] 5.0 % Normal 4.5-6.2 [facility] Comment on above: Performed By: #### P TT, PT #### [facility] [address] [address] [address] Beatrice Arellano IRONon 10-07-2022 Iron [Mass/Vol] 57.0 ug/dL Normal 50.0-170.0 [facility] Comment on above: Performed By: #### P TT, PT #### [facility] [address] [address] [address] Beatrice Arellano XR LSPINE MIN 4 [...] GABRIELLA WOO Date: 2022-10-07 13:13 Normal [facility] CBC AUTO DIFFon 03-24-2022 BASO # 0.1 103/ul Normal 0.0-0.1 [facility] Comment on above: Performed By: #### C BC #### [facility] [address] [address] [address] Beatrice Arellano Basophils/100 WBC (Bld) 1.0 % Normal 0.2-2.0 [facility] Comment on above: Performed By: #### C BC #### [facility] [address] [address] [address] Beatrice Arellano EO # 0.6 103/ul Normal 0.0-0.7 [facility] Comment on above: Performed By: #### C BC #### [facility] [address] [place] [address] Dr. Beatrice Arellano Eosinophils/100 WBC (Bld) 8.0 % Critically high 0.9-7.0 [facility] Comment on above: Performed By: #### C BC #### [facility] [address] [place] [address] Dr. Beatrice Arellano Erythrocyte distribution width (RBC) [Ratio] 11.8 % Normal 11.0-15.0 [facility] Comment on above: Performed By: #### C BC #### [facility] [address] [place] [address] Dr. Beatrice Arellano Hematocrit (Bld) [Volume fraction] 38.4 % Normal 36.0-48.0 [facility] Comment on above: Performed By: #### C BC #### [facility] [address] [place] [address] Dr. Beatrice Arellano Hemoglobin (Bld) [Mass/Vol] 13.2 g/dL Normal 12.0-16.0 [facility] Comment on above: Performed By: #### C BC #### [facility] [address] [place] [address] Dr. Beatrice Arellano IG # 0.03 10e3/ul Normal 0.00-0.03 [facility] Comment on above: Performed By: #### C BC #### [facility] [address] [place] [address] Dr. Beatrice Arellano IG % 0.4 % Normal 0.0-0.5 [facility] Comment on above: Performed By: #### C BC #### [facility] [address] [place] [address] Dr. Beatrice Arellano LYMPH # 2.0 103/ul Normal 1.2-3.8 [facility] Comment on above: Performed By: #### C BC #### [facility] [address] [place] [address] Dr. Beatrice Arellano Lymphocytes/100 WBC (Bld) 27.0 % Normal 20.5-60.0 [facility] Comment on above: Performed By: #### C BC #### [facility] [address] [place] [address] Dr. Beatrice Arellano MANUAL DIFF REQ NO Normal [facility] Comment on above: Performed By: #### C BC #### [facility] [address] [place] [address] Dr. Beatrice Arellano MCH (RBC) [Entitic mass] 33.4 pg Normal 26.7-34.0 [facility] Comment on above: Performed By: #### C BC #### [facility] [address] [place] [address] Dr. Beatrice Arellano MCHC (RBC) [Mass/Vol] 34.4 g/dL Normal 29.9-35.2 [facility] Comment on above: Performed By: #### C BC #### [facility] [address] [place] [address] Dr. Beatrice Arellano MCV (RBC) [Entitic vol] 97.2 fL Normal 81.0-99.0 [facility] Comment on above: Performed By: #### C BC #### [facility] [address] [place] [address] Dr. Beatrice Arellano MONO # 0.5 103/ul Normal 0.3-0.8 [facility] Comment on above: Performed By: #### C BC #### [facility] [address] [place] [address] Dr. Beatrice Arellano Monocytes/100 WBC (Bld) 6.5 % Normal 1.7-12.0 [facility] Comment on above: Performed By: #### C BC #### [facility] [address] [place] [address] Dr. Beatrice Arellano NEUT # 4.2 103/ul Normal 1.4-6.5 [facility] Comment on above: Performed By: #### C BC #### [facility] [address] [place] [address] Dr. Beatrice Arellano Neutrophils/100 WBC (Bld) 57.1 % Normal 43.0-75.0 [facility] Comment on above: Performed By: #### C BC #### [facility] [address] [place] [address] Dr. Beatrice Arellano Platelet mean volume (Bld) [Entitic vol] 9.8 fL Normal 9.5-13.5 [facility] Comment on above: Performed By: #### C BC #### [facility] [address] [place] [address] Dr. Beatrice Arellano PLT 223 103/ul Normal 150-450 [facility] Comment on above: Performed By: #### C BC #### [facility] [address] [place] [address] Dr. Beatrice Arellano RBC 3.95 106/ul Critically low 4.20-5.40 [facility] Comment on above: Performed By: #### C BC #### [facility] [address] [place] [address] Dr. Beatrice Arellano WBC 7.3 103/ul Normal 4.0-11.0 [facility] Comment on above: Performed By: #### C BC #### [facility] [address] [place] [address] Dr. Beatrice Arellano FERRITINon 03-24-2022 Ferritin [Mass/Vol] 58.0 ng/mL Normal 6.2-137.0 [facility] Comment on above: Performed By: #### T SH, PREGQNT #### [facility] [address] [place] [address] Dr. Beatrice Arellano PREG QUANT HCGon 03-24-2022 HCG QUANT 1 mIU/mL Normal [facility] Comment on above: Performed By: #### T SH, PREGQNT #### [facility] [address] [place] [address] Dr. Beatrice Arellano HCG RANGE SEE BELOW Normal [facility] Comment on above: Result Comment: 5-50 0-1 WEEK 40-300 1-2 WEEKS 100-1,000 2-3 WEEKS 500-6,000 3-4 WEEKS 5,000-200,000 1-2 MONTHS 10,000-100,000 2-3 MONTHS 3,000-50,000 2ND TRIMESTER 1,000-50,000 3RD TRIMESTER Performed By: #### T SH, PREGQNT #### [facility] [address] [place] [address] Dr. Beatrice Arellano PROTIMEon 03-24-2022 INR Coag (PPP) [Relative time] 0.95 {INR} Normal [facility] Comment on above: Performed By: #### P TT, PT #### [facility] [address] [place] [address] Dr. eBatrice Arellano INR GUIDELINES SEE BELOW Normal [facility] Comment on above: Result Comment: EDILBERTO RED INR: 2.0 - 3.0 CONDITIONS NOT LISTED BELOW 2.5 - 3.5 FOR PROSTHETIC HEART VALVE REPLACEMENT 2.5 - 3.5 RECURRENT THROMBOSIS Performed By: #### P TT, PT #### [facility] [address] [place] [address] Dr. Beatrice Arellano PT Coag (PPP) [Time] 10.3 s Normal 9.0-11.6 [facility] Comment on above: Performed By: #### P TT, PT #### [facility] [address] [place] [address] Dr. Beatrice Arellano PTTon 03-24-2022 aPTT Coag (Bld) [Time] 25.9 s Normal 22.3-36.2 [facility] Comment on above: Performed By: #### P TT, PT #### [facility] [address] [place] [address] Dr. Beatrice Arellano TSHon 03-24-2022 TSH 1.574 uIU/mL Normal 0.470-4.680 [facility] Comment on above: Performed By: #### T SH, PREGQNT #### [facility] [address] [place] [address] Dr. Beatrice Arellano TSH RANGE SEE BELOW Normal [facility] Comment on above: Result Comment: <0.3 4 UIU/ml HYPERTHYROID 0.34-5.60 UIU/ml EUTHYROID >5.60 UIU/ml HYPOTHYROID Performed By: #### T SH, PREGQNT #### [facility] [address] [place] [address] Dr. Beatrice Arellano US PELVIS AND TRANSVAGon [...] by: GABRIELLA WOO Date: 2022-03-24 12:00 Normal [facility] COVID-19 Positive/Negativeon 01-15-2021 COVID-19 Positive/Negative Negative Negative [facility] Comment on above: Testing for SARS-CoV -2 by RT-PCRThis test was developed and its performance characteristics determined by [employer] and validated at the [place]. This test has not been FDA cleared [...] Otheron 01-15-2021 Coronavirus 2019 PCR Interp N/A [facility] Social History Date Type Detail Facility Start: 10-28-2022 Tobacco smoking status Ex-smoker (fi nding) [facility] Start: 1995 Sex Assigned At Female F [facility] Tobacco smoking status Former sm okeless tobacco user, quit more than 30 days ago [facility] Sex Assigned At Female [facility] Vital Signs Date Time Vital Sign Value Performing Clinician Yovana elizondo 09-10-2023 12:48-0400 Blood Pressure Location [facility] 09-10-2023 12:48-0400 Diastolic blood pressure 79 mm[Hg] [facility] 09-10-2023 12:48-0400 Heart rate 91 /min [facility] 09-10-2023 12:48-0400 Respiratory rate 16 /min [facility] 09-10-2023 12:48-0400 Systolic blood pressure 136 mm[Hg] [facility] Functional Status Date Assessment Result Facility 09-10-2023 Functional Status N/A [facility] Clinical Note 09-10-2023 Note Date [...] QID, # 120 tab(s), Refills(s) 3, [id number], 157.4, cm, 09/10/23 12:54:00 EDT, Height/Length Dosing, 76.6, kg, 09/10/23 12:54:00 EDT, Weight Dosing 2. Duodenogastric bile reflux (K21.9: Gastro-esophageal reflux disease without esophagitis) see # 1 Ordered: sucralfate, 1 gm = 1 tab(s), Oral, QID, # 120 tab(s), Refills(s) 3, [id number], 157.4, cm, 09/10/23 12:54:00 EDT, Height/Length Dosing, 76.6, kg, 09/10/23 12:54:00 EDT, Weight Dosing Follow-up No qualifying data available Problem List/Past Medical History Ongoing ADHD Asthma BMI 30.0-30.9,adult Chronic cystitis Dependent edema Depression Duodenogastric bile reflux Dysuria Epigastric pain (more content not included)... [facility] Comment on above: Result Comment: Elec [...] vaccine, inactivated - Not Given Patient Refuses [facility] Comment on above: Result Comment: Elec tronically Signed By: GADIEL CASTILLO, Benjamin Escobedo\Date and Time Signed: 10/28/22 08:47 EST Evaluation + Plan note Note Date & Type Note Facility Evaluation + Plan note No data available for this section [facility] Discharge instructions Note Date & Type Note Facility Hospital Discharge instructions No data available for this section [facility] Progress note Note Date & Type Note Facility Progress note No data available for this section [facility] Advance Directives No Advanced Directives Records Found Advance Directive Response Recorded Date/ Time Advance Directives No December 12:39pm Chief Complaint and Reason for Visit Chief Complaint Gerd, Abdominal Pain Assessments No Assessments Information Available Summary Purpose Family History No Family History Records FoundNo Family History Records Found No data available for this section No Family History Records FoundNo Family History Records FoundNo Family History Records Found Additional Source Comments Patient Care team informatio n (unrecognized section and content) Personnel Name: Jasmin Parrish MD Address: Address: [address] [place] [address] Personnel Name: Jasmin Parrish MD Address: Address: [address] [place] [address] Personnel Name: Jasmin Parrish MD Address: Address: [address] [place] [address] [place] [address]- Personnel Name: Jasmin Parrish MD Address: Address: [address] [place] [address] [place] [address]- INFORMATION SOURCE (unrecogn ized section and content) DATE CREATED AUTHOR 11/21/2022 [facility] DATE CREATED AUTHOR AUTHOR'S ORGANIZ ATION 02/28/2023 [facility] DATE CREATED AUTHOR AUTHOR'S ORGANIZ ATION 09/12/2023 [facility] DATE CREATED AUTHOR AUTHOR'S ORGANIZ ATION 04/15/2024 [facility] DATE CREATED AUTHOR AUTHOR'S ORGANIZ ATION 04/27/2024 [facility] FOR RECORDS PERTAINING TO PATIENTS WHO ARE [...] BE BASED ON THE PRIMARY CLINICAL RECORDS. [facility] [email or web address] provides no warranty or guarantee of the accuracy or completeness of information in this document.
[2024-05-11 08:00] VITALS: BP 120/78; PULSE 73; TEMP 36.1; O2SAT 97; BMI 31.2
[2024-05-11 08:14] LABS: HCG Qualitative NEGATIVE (NEGATIVE); Internal Control Within Normal Limits
[2024-05-11] MEDS: LACTATED RINGER'S SOLUTION 1,000 ML 50 ML IV (08:31)
--- NOTE | 2024-05-11 09:14 | PM.GSPRC ---
Date of procedure: 05/11/24 Indications for Procedure: Epigastric abdominal pain Pre-op diagnosis: Epigastric abdominal pain Post-op diagnosis: other (Normal stomach duodenum and esophagus) Procedure: EGD with biopsy antrum and distal esophagus Findings: Normal Anesthesia: MAC Surgeon: Benjamin Martin Procedure Summary: Patient was taken to the endoscopy suite and given anesthesia by the engineer first assistant. The Olympus EGD scope was advanced under direct visualization into the posterior pharynx esophagus into the stomach through the pylorus into the first and second third and fourth portions of the duodenum which were normal. The scope was returned to the stomach retroflexion esophagus the GE junction which was normal. No polyps tumors ulcers or gastritis were seen but random biopsies were taken of the antrum. Hemostasis was maintained. The scope was then slowly withdrawn and the GE junction appeared grossly normal but biopsies were taken as well. Hemostasis maintained. The rest of the esophagus was normal without any lesions. The scope was removed from the mouth. She will be asked to increase her omeprazole to twice daily 20 mg and see if that helps with her symptomatology otherwise we will await the pathology report. If this is negative may need further workup? Estimated blood loss (mL): 0 Specimens: Antral and distal esophageal biopsies Complications: No Condition: stable Disposition: PACU
[2024-05-11 09:52] VITALS: BP 105/70; PULSE 68; O2SAT 98
[2024-05-11 10:07] VITALS: BP 106/66; PULSE 66; O2SAT 98
[2024-05-11 10:22] VITALS: BP 100/64; PULSE 62; O2SAT 100
[2024-05-12 15:31] LABS: H Pylori Tissue, Urease Negative
== END 2024-05-11 10:32 | disposition home or self-care (01) ==
PROVIDERS: Anesthesiology; PCP Family Medicine; Visit Provider Surgery
PROC: (CPT 00731; principal; 2024-05-11 08:55)
DX: K29.50 Unspecified chronic gastritis without bleeding (principal); K21.00 Gastro-esophageal reflux disease with esophagitis, without bleeding; R10.13 Epigastric pain; Z90.49 Acquired absence of other specified parts of digestive tract
CPT/HCPCS: 00731; 43239; 36415; 84703; 87077; 88305; 99999; J2704

== ENCOUNTER 2025-03-14 08:09 | Outpatient (OUT) | payer BC, SELFPAY ==
[2025-03-14 08:30] LABS: Basophils Absolute Auto 0.1 10^3/uL (0.0-0.1); Basophils Percent Auto 0.6 % (0.2-2.0); Eosinophils Absolute Auto 0.3 10^3/uL (0.0-0.7); Eosinophils Percent Auto 3.6 % (0.9-7.0); Hematocrit 37.5 % (36.0-48.0); Hemoglobin 13.1 g/dL (12.0-16.0); Immature Granulocytes Abs Auto 0.02 10^3/uL (0.00-0.03); Immature Granulocytes Pct Auto 0.2 % (0.0-0.5); Lymphocytes Absolute Auto 1.8 10^3/uL (1.2-3.8); Lymphocytes Percent Auto 19.1 % (20.5-60.0); Mean Corpuscular HGB Conc 34.9 g/dL (29.9-35.2); Mean Corpuscular Hemoglobin 33.7 pg (26.7-34.0); Mean Corpuscular Volume 96.4 fL (81.0-99.0); Mean Platelet Volume 9.9 fL (9.5-13.5); Monocytes Absolute Auto 0.6 10^3/uL (0.3-0.8); Monocytes Percent Auto 6.1 % (1.7-12.0); Neutrophils Absolute Auto 6.6 10^3/uL (1.4-6.5); Neutrophils Percent Auto 70.4 % (43.0-75.0); Platelet Count 233 10^3/uL (150-450); Red Blood Count 3.89 10^6/uL (4.20-5.40); White Blood Count 9.3 10^3/uL (4.0-11.0)
[2025-03-14 09:38] LABS: Estimated Average Glucose 97 mg/dL
[2025-03-14 09:57] LABS: Alanine Aminotransferase 23 U/L (14-59); Albumin Globulin Ratio 0.9; Albumin Level 3.3 g/dL (3.4-5.0); Alkaline Phosphatase 66 U/L (46-116); Aspartate Amino Transferase 17 U/L (15-37); BUN Creatinine Ratio 8.2; Bilirubin Total 0.5 mg/dL (0.2-1.0); Calcium 8.6 mg/dL (8.5-10.1); Carbon Dioxide 28.1 mmol/L (21.0-32.0); Chloride 105 mmol/L (98-107); Chol HDL Ratio 5.1; Cholesterol 216 mg/dL (<=200); Estimated GFR (African America >60 (>=60 mL/min/1.73m^2); Estimated GFR (Non-African Ame >60 (>=60 mL/min/1.73m^2); Free T3 1.42 pg/mL (2.18-3.98); Globulin 3.6 g/dL; Glucose 93 mg/dL (74-106); HDL Cholesterol 42 mg/dL (40-60); Potassium 4.1 mmol/L (3.5-5.1); Sodium 141 mmol/L (136-145); Thyroid Stimulating Hormone 2.546 uIU/mL (0.358-3.740); Total Protein 6.9 g/dL (6.4-8.2); Triglycerides 436 mg/dL (<=150); VLDL CHOLESTEROL 87.2 mg/dL
[2025-03-14 10:18] LABS: LDL Cholesterol Direct 109 mg/dL
[2025-03-15 04:07] LABS: Insulin 16.9 uIU/mL (2.6-24.9)
== END 2025-03-14 08:10 | disposition home or self-care (01) ==
LOC: LAB 08:11
PROVIDERS: PCP Family Medicine; Visit Provider Family Medicine
DX: Z00.00 Encounter for general adult medical examination without abnormal findings (principal)
CPT/HCPCS: 36415; 80053; 80061; 83036; 83525; 83721; 84436; 84443; 84481; 85025

== ENCOUNTER 2025-04-19 12:10 | Outpatient (REF) | payer BC, SELFPAY ==
[2025-04-21 17:08] LABS: Age Gdln ACOG Testing Note (.); HPV Aptima Negative (Negative); IGP, Aptima HPV, rfx 16/18,45 Note (.)
== END 2025-04-19 12:11 | disposition home or self-care (01) ==
LOC: LAB 12:10
PROVIDERS: PCP Family Medicine; Visit Provider Physician Assistant
DX: Z01.419 Encounter for gynecological examination (general) (routine) without abnormal findings (principal)
CPT/HCPCS: 87624; 88175